=== PATIENT | male | born 1970 | race Caucasian/White ===

== ENCOUNTER → 2018-02-16 10:54 | Outpatient (CLI) | payer MEDICARE, SELFPAY ==
--- NOTE | 2018-02-16 10:54 | DT_ITS ---
This patient was seen during an EMR downtime February 15, 2018 - February 22, 2018. This patient may have a combination of paper and electronic documentation or all paper documentation. All documentation is viewable within the e-chart portion of [employer] for each patient visit.
[2018-02-22 17:46] LABS: Hemoglobin A1c 7.3 % (4.2-6.3)
[2018-02-22 17:47] LABS: ALB/GLOB Ratio 1.1 RATIO (0.9-2.4); AST(SGOT) 20 U/L (15-37); Alanine Aminotransfer ALT/SGPT 38 U/L (16-61); Albumin, Serum 3.9 g/dL (3.2-5.0); Alkaline Phosphatase 109 U/L (45-117); Anion Gap 6 (5-15); BUN 12 mg/dL (7-18); BUN/Creat Ratio 11.3 RATIO (10-20); Calcium,Total 9.8 mg/dL (8.5-10.1); Chloride 106 mmol/L (98-107); Cholesterol 208 mg/dL (200); Creatinine, Serum 1.06 mg/dL (0.70-1.30); EST Glomerular Filtration Rate 80 mL/min (>60); Est Glom Filt Rate - Afr Amer 97 mL/min (>60); Globulin 3.6 g/dL (2.2-4.2); Glucose 114 mg/dL (74-106); High Density Lipoprotein 31 mg/dL; Potassium 4.1 mmol/L (3.5-5.1); Protein, Total 7.5 g/dL (6.4-8.2); Sodium Level 141 mmol/L (136-145); Triglycerides 382 mg/dL; Very Low Density Lipoprotein 76 mg/dL (5-40)
[2018-02-22 17:48] LABS: Thyroid Stim Hormone (TSH) 1.16 uIU/mL (0.358-3.74)
== END ==
PROVIDERS: Family Provider Family Medicine; PCP Family Medicine; Visit Provider Family Medicine
DX: E03.9 Hypothyroidism, unspecified (principal); E11.36 Type 2 diabetes mellitus with diabetic cataract; E11.65 Type 2 diabetes mellitus with hyperglycemia
CPT/HCPCS: 80053; 80061; 83036; 84443

== ENCOUNTER → 2019-08-23 12:15 | Outpatient (CLI) | payer MEDICARE, SELFPAY ==
[2019-08-23 16:21] LABS: Hemoglobin A1c 9.8 % (4.2-6.3)
[2019-08-23 16:24] LABS: Cholesterol 235 mg/dL (200); High Density Lipoprotein 34 mg/dL; T4 Free Direct 0.98 ng/dL (0.76-1.46); Thyroid Stim Hormone (TSH) 0.96 uIU/mL (0.358-3.74); Triglycerides 299 mg/dL; Very Low Density Lipoprotein 60 mg/dL (5-40)
[2019-08-24 09:16] LABS: T3 Uptake 33 % (33-40)
== END ==
PROVIDERS: Family Provider Family Medicine; PCP Family Medicine; Referring Provider Family Medicine; Visit Provider Family Medicine
DX: E78.49 Other hyperlipidemia (principal); E03.9 Hypothyroidism, unspecified; E11.9 Type 2 diabetes mellitus without complications
CPT/HCPCS: 80061; 83036; 84436; 84439; 84443; 84479

== ENCOUNTER 2022-10-21 21:33 | Emergency (ER) | payer MEDICARE, SELFPAY ==
[2022-10-21 21:34] VITALS: BP 160/81; PULSE 108; RESP 16; TEMP 36.6; O2SAT 98; BMI 23.3
--- NOTE | 2022-10-21 22:05 | CM.ED ---
SW Note Referral Source: MD Daniel Referral Reason: resources MD Daniel informed SW patient was homeless and needing medication refills. SW to follow up regarding shelters. SW contacted [facility] as well as [facility] include 234 beds at the [facility] to inquire about availability. No beds at either location. [facility] not open until this weekend. SW met with patient and introduced herself and role as [facility] Workers Compensation Coordinator. SW inquired about patient's current living situation. Patient was laying in bed but in agreement to speak with SW. SW explained there were no beds available at the local detention then provided patient with phone numbers for shelters in [place] and [place]. Patient was receptive towards information but reported he didn't have a phone, ID or car. SW encouraged patient to contact friends or family to assist with a place to sleep for tonight. Patient then voiced other medical concerns. SW to inform MD, no other needs voiced by patient. MD Daniel informed resources were provided and patient has other medical concerns. to address. Plan: d/c out, homeless detention list provided. Carole Green [employer]ER, NABEEL
[2022-10-21 22:11] VITALS: O2SAT 98
--- NOTE | 2022-10-21 22:14 | EDS_ITS ---
HPI History of Present Illness Chief Complaint: Lower Extremity Injury Narrative Narrative: Patient with history of diabetes, neuropathy, bipolar disorder, PTSD, personality disorder, fibromyalgia presenting for medication refills. He notes some of his medications but does not know any of his doses. He reports has been out of this for a few days. He was recently released from [facility]. He states he was in [facility] because his made a false accusation of him. He states that she did this so that she can gain control of their 6 houses and become a millionaire. He is now homeless and has no money. He did not tell me what he did to go to [facility]. He is not suicidal or homicidal. He is not manic. He is clearheaded. He states he is really just here because the homeless senior living did not have a bed for him tonight. He states that they would have had a bed, he would have stayed there and gone to his appointment at [facility] tomorrow. PFSH PFSH Allergy/AdvReac Type Severity Reaction Status Date / Time lamotrigine [From Lamictal] Allergy Rash Verified 10/21/22 21:36 Social History Smoking Status: Never smoker ROS ROS ED Constitutional Constitutional ED: Denies chills, fever(s) or sweats Eyes Eyes: Denies blurry vision or change in vision ENT ENT ED: Denies ear pain or sore throat Cardiovascular Cardiovascular: Denies chest pain, palpitations or racing heartbeat Respiratory/Chest Respiratory/Chest: Denies cough, dyspnea or sputum Gastrointestinal Gastrointestinal: Denies abdominal pain, constipation, diarrhea, nausea or vomiting Genitourinary Genitourinary ED: Denies dysuria, hematuria or urinary frequency Musculoskeletal Musculoskeletal: Denies arthralgias, myalgias or neck pain Integumentary Denies abscess, Abrasions or rash Neurologic Neurologic: Denies headache(s), paresthesias or weakness Psychiatric Psychiatric: Denies anxiety, depression, suicidal ideation or suicidal thoughts Endocrine Endocrinology: Denies polydipsia or polyuria EXAM Physical Exam Const Vital Signs: 10/21/22 21:34 10/21/22 22:11 Temperature 97.8 F Temperature Source Temporal Pulse Rate 108 H Respiratory Rate 16 Blood Pressure 160/81 H Blood Pressure Mean 107 Pulse Ox 98 98 Oxygen Delivery Method Room Air Room Air General Appearance ED: Negative for pallor HEENT Reports normocephalic, head/scalp atraumatic and moist mucous membranes Eyes PERRL and EOMs intact bilaterally Neck no lymphadenopathy and supple Chest Wall inspection of chest normal and palpation of chest normal Resp normal respiratory effort and clear to auscultation bilaterally Auscultation: Negative for rales, rhonchi or wheezes Cardio regular rate and regular rhythm GI normal to inspection, nondistended, normoactive bowel sounds and non-distended Auscultation: normoactive bowel sounds Palpation: soft Narrative: Deferred Back/Spine no CVA tenderness General Back: Negative for CVA tenderness Cervical Spine: Negative for cervical spine tenderness Extremity normal to inspection General Extremety ED: Yes edema and tenderness General Extremity: edema Neuro oriented x3 and CN's II-XII intact bilaterally Sensorium / Orientation: alert Motor Exam: strength 5/5 throughout Psych mental status grossly normal Attitude: No agitated Skin no rashes or lesions noted and no wounds General Skin Exam: Negative for jaundice or pallor MDM MDM MDM Narrative Medical decision making narrative: Patient requesting medication refills but does not know any of the doses and is unsure of all of the medication she supposed to be taking. This makes it very difficult to give him any refills. Is been out of these for a few days. He has a appointment for [facility] tomorrow to get all of his medications refilled.hematuria he states that he came here tonight because the homeless senior living did not have a bed for him and is not supposed to be standing for long periods of time. I did have the social services coordinator going to give him some resources for other senior living sent to the warming room in the homeless senior living or full. In addition to this they do not accept anybody at 10:00 at night. He was given a list of other shelters in [place]. He is to follow-up for his prescriptions tomorrow. I do not believe he needs any blood work or imaging. Impression: 1. Peripheral neuropathy Discharge Plan Triage Chief Complaint: Lower Extremity Injury ED Provider: Julio Daniel Dx/Rx/DC Orders Clinical Impression: Homelessness, Neuropathy Instructions: ED Neuropathy, Peripheral Primary Care Provider: Cordell Bojorquez Referrals: Cordell Bojorquez MD [Primary Care Provider] - Disposition Disposition: Home, Self Care
[2022-10-21 22:39] VITALS: BP 135/78
== END 2022-10-21 22:40 | disposition home or self-care (01) ==
PROVIDERS: Emergency Provider Student in an Organized Health Care Education/Training Program; PCP Family Medicine; Visit Provider Student in an Organized Health Care Education/Training Program
DX: E11.40 Type 2 diabetes mellitus with diabetic neuropathy, unspecified (principal); Z59.02 Unsheltered homelessness
CPT/HCPCS: 99282

== ENCOUNTER 2023-10-29 14:06 | Emergency (ER) | payer MEDICARE, SELFPAY ==
[2023-10-29 14:08] VITALS: BP 147/78; PULSE 94; RESP 18; TEMP 36.3; O2SAT 98; BMI 21.5
[2023-10-29 14:34] LABS: Bedside Glucose 219 mg/dL (74-106)
[2023-10-29 15:03] LABS: Absolute Lymphocyte Count 2.57 X10^3/uL (0.83-4.51); Basophil# 0.08 X10^3/uL; Basophil% 0.7 % (0-1); Eosinophil# 0.15 X10^3/uL; Eosinophils% 1.4 % (0-5); Hemoglobin 16.9 g/dL (13.0-16.5); Lymphocyte # 2.57 X10^3/ul (0.83-4.51); Lymphocyte % 23.6 % (19-41); Mean Corp Hgb Conc 35.2 g/dL (32-36); Mean Corpuscular Hgb 32.2 pg (27.0-32.0); Mean Corpuscular Volume 91.4 fL (80-94); Mean Platelet Vol. 10.5 fl (6.2-12.0); Monocyte% 8.3 % (0-10); NRBC Flagged by Analyzer 0 % (0-5); Neutrophil # 7.01 X10^3/uL (2.7-7.7); Neutrophil % 64.5 % (47-70); Platelet Count 218 K/mm3 (150-450); RBC Distribution Width CV 12.3 % (11.6-14.6); RBC Distribution Width SD 41.7 fl (35.1-43.9); Red Blood Count 5.25 M/mm3 (4.6-6.2); White Blood Count 10.9 K/mm3 (4.4-11.0)
[2023-10-29 15:22] LABS: ALB/GLOB Ratio 1.1 RATIO (0.9-2.4); AST(SGOT) 9 U/L (15-37); Alanine Aminotransfer ALT/SGPT 19 U/L (16-61); Albumin, Serum 3.9 g/dL (3.2-5.0); Alkaline Phosphatase 129 U/L (45-117); Anion Gap 5 (5-15); BUN 9 mg/dL (7-18); Calcium,Total 9.7 mg/dL (8.5-10.1); Chloride 107 mmol/L (98-107); EST Glomerular Filtration Rate 95 mL/min (>60); Est Glom Filt Rate - Afr Amer 114 mL/min (>60); Estimated Creatinine Clearance 83.29 ml/min; Globulin 3.5 g/dL (2.2-4.2); Glucose 210 mg/dL (74-106); Potassium 3.3 mmol/L (3.5-5.1); Protein, Total 7.4 g/dL (6.4-8.2); Sodium Level 137 mmol/L (136-145)
--- NOTE | 2023-10-29 15:26 | EX.ED.DYSGE1 ---
HPI <Cathleen Khalil RN - Last Filed: 10/29/23 15:43> History of Present Illness Chief Complaint: General Illness Detail of Chief Complaint: Weakness, confusion, decreased p.o. intake, difficulty sleeping, nausea Informant: patient Onset/Context/Timing Onset: Days (3) Context: Gradual Onset Timing: Continuous Current Severity: Mild Maximum Severity: Moderate Worsened by: Nothing Relieved by: Nothing Narrative Narrative: Patient presents to the ED complaining of weakness, confusion, decreased p.o. intake x 3 days. Patient reports nausea, dry heaving, fever and chills beginning today. He also reports difficulty sleeping x 3 weeks. Patient states he cannot think properly. And has reported intermittent episodes of slurred speech. Patient reports generalized pain rated 6 out of 10 which is his baseline. Patient also reports intermittent chest pain and shortness of breath for several years. Reports chronic abdominal pain which is worse today. Patient reports diabetes in which he does not check his blood sugars. Also reports history of hypothyroidism, GERD, hypertension, hyperlipidemia, depression, anxiety, bipolar, and schizophrenia. Patient reports he was admitted to [facility] for 6 months in which they did not find anything wrong. Reports not taking mental health medications since 2020. Currently reports he only takes levothyroxine and omeprazole. Prior similar symptoms: No Recent Illness/Hospitalization: No PFSH <Cathleen Khalil RN - Last Filed: 10/29/23 15:43> PFSH Medical History (Updated 10/29/23 @ 15:[address] Cleve Easley MD) Anxiety Bipolar 1 disorder Chronic GERD Depression Diabetes Hyperlipidemia Hypertension Hypothyroidism Schizophrenia Allergy/AdvReac Type Severity Reaction Status Date / Time lamotrigine [From Lamictal] Allergy Rash Verified 10/29/23 14:09 Social History (Updated 10/29/23 @ 15:33 by Cathleen Khalil RN) Smoking Status: Current every day smoker Tobacco: How many years used: 2 smoking status start date: 09/14/18 quit status: not considering quitting alcohol intake: current details: 2 beers 1-2 times per week substance use type: marijuana ROS <Cathleen Khalil RN - Last Filed: 10/29/23 15:43> ROS ED Constitutional Constitutional ED: Reports chills and fever(s); Denies sweats Eyes Eyes: Denies blurry vision or change in vision ENT ENT ED: Denies ear pain, rhinorrhea or sore throat Cardiovascular Cardiovascular: Reports chest pain Respiratory/Chest Respiratory/Chest: Reports dyspnea Gastrointestinal Gastrointestinal: Reports abdominal pain and nausea; Denies diarrhea Genitourinary Genitourinary ED: Denies dysuria, hematuria or urinary frequency Musculoskeletal Musculoskeletal: Reports arthralgias and myalgias Integumentary Denies rash Neurologic Neurologic: Reports weakness; Denies headache(s) Psychiatric Psychiatric: Reports anxiety and depression Hematologic/Lymphatic Hematologic/Lymphatic: Reports systems reviewed and no addt'l complaints, except as documented EXAM <Cathleen Khalil RN - Last Filed: 10/29/23 15:43> Physical Exam Const Vital Signs: 10/29/23 14:08 10/29/23 15:06 Temperature 97.4 F L Temperature Source Temporal Pulse Rate 94 Respiratory Rate 18 Respiratory Effort Normal Respiratory Pattern Normal Blood Pressure 147/78 H Blood Pressure Mean 101 Pulse Ox 98 Oxygen Delivery Method Room Air Positive well nourished and well developed General Appearance ED: well developed and NAD HEENT Reports moist mucous membranes Eyes PERRL Chest Wall inspection of chest normal and palpation of chest normal Resp normal respiratory effort and clear to auscultation bilaterally Cardio regular rate, regular rhythm, S1 normal heart sound and S2 normal heart sound GI normal to inspection, nondistended, normoactive bowel sounds and non-tender Palpation: soft Extremity normal to inspection General Extremety ED: Negative for edema General Extremity: Negative for edema Neuro oriented x3 Sensorium / Orientation: alert Motor Exam: strength 5/5 throughout Psych mental status grossly normal Mood & Affect: anxious Skin no rashes or lesions noted <Dr. Cleve Easley MD - Last Filed: 10/29/23 15:44> Physical Exam Const Vital Signs: 10/29/23 14:08 10/29/23 15:06 Temperature 97.4 F L Temperature Source Temporal Pulse Rate 94 Respiratory Rate 18 Respiratory Effort Normal Respiratory Pattern Normal Blood Pressure 147/78 H Blood Pressure Mean 101 Pulse Ox 98 Oxygen Delivery Method Room Air MDM <Cathleen Khalil RN - Last Filed: 10/29/23 15:43> MDM MDM Narrative Medical decision making narrative: IV line initiated. Labwork obtained to evaluate for leukocytosis, anemia, and electrolyte derangement. History & Record Review Discussion w/independent historian: Patient Lab Data Attestation: I reviewed the patient's lab results. Labs: Laboratory Results - last 24 hr 10/29/23 10/29/23 14:17 14:50 WBC 10.9 RBC 5.25 Hgb 16.9 H Hct 48.0 MCV 91.4 MCH 32.2 H MCHC 35.2 RDW Std Deviation 41.7 RDW Coeff of Joe 12.3 Plt Count 218 MPV 10.5 Immature Gran % (Auto) 1.500 H Neut % (Auto) 64.5 Lymph % (Auto) 23.6 Baker % (Auto) 8.3 Eos % (Auto) 1.4 Baso % (Auto) 0.7 Absolute Neuts (auto) 7.0 Absolute Lymphs (auto) 2.57 Nucleated RBC % 0 Sodium 137 Potassium 3.3 L Chloride 107 Carbon Dioxide 25.0 Anion Gap 5 BUN 9 Creatinine 0.90 Estim Creat Clear Calc 83.29 Est GFR (MDRD) Af Amer 114 Est GFR (MDRD) Non-Af 95 BUN/Creatinine Ratio 10.0 Glucose 210 H Calcium 9.7 Total Bilirubin 1.20 H AST 9 L ALT 19 Alkaline Phosphatase 129 H Total Protein 7.4 Albumin 3.9 Globulin 3.5 Albumin/Globulin Ratio 1.1 POC Glucose 219 H Differential Diagnosis Chest pain/SOB: ACS Abdominal Pain: Bowel obstruction Management Discussion w/another healthcare provider: Other (Dr. Easley, ED provider) Treatment and Re-Evaluation :: Upon reevaluation, patient resting comfortably. No acute distress noted. CBC reveals normal white count of 10.9, hemoglobin 16.9 platelets 218. Chemistry reveals slightly decreased potassium 3.3, glucose 210, total bili of 1.2, and alk phos 129. No indications of DKA. Reviewed lab results with patient. Patient requesting glucometer to check glucose at home. Dr. Easley to write prescription for glucometer and supplies. Patient instructed to check glucose with meals and to keep a log. Patient also instructed to follow-up with Dr. Bojoqruez in 1 week. Instructed to return to ED for worsening symptoms. Patient agreeable to plan. <Dr. Cleve Easley MD - Last Filed: 10/29/23 15:44> MDM MDM Narrative Medical decision making narrative: IV line initiated. Labwork obtained to evaluate for leukocytosis, anemia, and electrolyte derangement. I have personally performed a face to face assessment of the patient and have reviewed the NAFISA Note. I performed a substantive portion of the visit including all aspects of the following. My maldonado findings include: History is 53-year-old male history of diabetes and underlying psychiatric illness. Not checking his blood sugars. Patient states he just has not been feeling well lately. Denies vomiting, diarrhea or fever. Denies headache or chest pain. Exam is [well-appearing 53-year-old male. Vital signs stable afebrile. Pulse ox 98% room air no hypoxia. He is in no distress. H EENT exam unremarkable. Mytrex membranes. Neck nontender no lymphadenopathy. Lungs clear to auscultation bilaterally. Heart regular rhythm rate about 90 no murmur. Chest wall and ribs nontender. Abdomen soft nontender. Back unremarkable. Moving all 4 extremities. Nontender no edema. Neurologically is awake and alert with no focal motor deficits.] Medical Decision Making [53-year-old male with diabetic and underlying psychiatric illnesses is not feeling well. Has a benign exam. Screening labs were obtained CBC was unremarkable. Chemistries are unremarkable except his glucose was 210. Liver enzymes are unremarkable. Patient be discharged home. He was hoping for glucometer.] Other additions or changes: [None] Lab Data Lab results narrative: CBC normal. Chemistries unremarkable and glucose of 210. Liver enzymes unremarkable. Labs: Laboratory Results - last 24 hr 10/29/23 10/29/23 14:17 14:50 WBC 10.9 RBC 5.25 Hgb 16.9 H Hct 48.0 MCV 91.4 MCH 32.2 H MCHC 35.2 RDW Std Deviation 41.7 RDW Coeff of Joe 12.3 Plt Count 218 MPV 10.5 Immature Gran % (Auto) 1.500 H Neut % (Auto) 64.5 Lymph % (Auto) 23.6 Baker % (Auto) 8.3 Eos % (Auto) 1.4 Baso % (Auto) 0.7 Absolute Neuts (auto) 7.0 Absolute Lymphs (auto) 2.57 Nucleated RBC % 0 Sodium 137 Potassium 3.3 L Chloride 107 Carbon Dioxide 25.0 Anion Gap 5 BUN 9 Creatinine 0.90 Estim Creat Clear Calc 83.29 Est GFR (MDRD) Af Amer 114 Est GFR (MDRD) Non-Af 95 BUN/Creatinine Ratio 10.0 Glucose 210 H Calcium 9.7 Total Bilirubin 1.20 H AST 9 L ALT 19 Alkaline Phosphatase 129 H Total Protein 7.4 Albumin 3.9 Globulin 3.5 Albumin/Globulin Ratio 1.1 POC Glucose 219 H Discharge Plan Triage Chief Complaint: General Illness ED Provider: Cleve Easley Dx/Rx/DC Orders Clinical Impression: Hyperglycemia due to diabetes mellitus, Malaise, Diabetes, Bipolar 1 disorder Instructions: High Blood Sugar (Hyperglycemia), Blood Sugar Check Steps Primary Care Provider: Cordell Bojorquez Referrals: Cordell Bojorquez MD [Primary Care Provider] - Activity Restrictions/Additional Instructions: Check blood sugar 3 times a day. Follow-up with Dr. Cross in 1 week. Return to ER for worsening symptoms. Disposition Disposition: Acute Care Hospital [facility]
--- OUTSIDE RECORDS SUMMARY | 2023-10-29 20:19 | XMS RPT_ITS | CCD ---
Author Name Unknown Address [address] [place] [address] [address] [place] [address] Organization [facility] Care Team Providers Care Home Health Care Physician Name Role Phone Unavailable Primary Care Provider UnavailSalazar Arnold MD Primary Care Provider REYNALDO MACIAS Attending Unavailable SALAZAR ACOSTA Primary Care Unavailable REYNALDO MACIAS Referring Unavailable SALAZAR ACOSTA Primary Care Unavailable REYNALDO MACIAS Attending Unavailable SALAZAR ACOSTA Primary Care Unavailable SALAZAR ACOSTA Primary Care Unavailable SALAZAR ACOSTA Primary Care Unavailable LIGIA FOOTE Referring Unavailable SALAZAR ACOSTA Primary Care Unavailable JOSETTE ARANGO Attending Unavailable LIGIA FOOTE Referring Unavailable Allergies Allergy Classification Reported Allergen(s) Allergy Type Date of Onset Reaction(s) Facility (9 sources) lamoTRIgine; Translations: [LAMOTRIGINE] Drug Allergy 08-05-2006 Rash [facility] (9 sources) Simvastatin; Translations: [SIMVASTATIN] Drug Allergy 08-23-2011 Intolerance [facility] Medications Current Medications Medication Drug Class(es) Dates Sig (Normalized) Sig (Original) ARIPiprazole 5 mg oral tablet (4 sources) Atypical Antipsychotic Start: 06-22-2023 End: 12-19-2023 take 1 tablet by mouth once daily ARIPiprazole (ABILIFY) 5 mg tablet Indications: Personality disorder (HCC) , Bipolar I disorder (HCC) Take 1 tablet by mouth once daily. 30 tablet 5 06/22/2023 12/19/2023 Active Completed/Discontinued Medications Medication Drug Class(es) Dates Sig (Normalized) Sig (Original) Blood-Glucose Meter ([id number] BLOOD GLUCOSE SYSTEM) monitoring kit (8 sources) Start: 09-08-2013 Blood-Glucose Meter ([id number] BLOOD GLUCOSE SYSTEM) monitoring kit 1 Each as needed. 1 Each 0 09/08/2013 Active Problems Active Problems Problem Classification Problem Date Documented Date Episodic/Chronic Adjustment disorders (8 sources) Adjustment disorder with mixed anxiety and depressed mood; Translations: [Adjustment disorder with mixed anxiety and depressed mood] Onset: 12-05-2009 12-05-2009 Chronic Anxiety disorders (8 sources) Posttraumatic stress disorder; Translations: [Post-traumatic stress disorder, unspecified] Onset: 12-05-2009 12-05-2009 Chronic Delirium, dementia, and amnestic and other cognitive disorders (8 sources) Traumatic encephalopathy; Translations: [Postconcussional syndrome] Onset: 12-06-2009 12-06-2009 Chronic Diabetes mellitus with complications (8 sources) Type II diabetes mellitus uncontrolled; Translations: [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] Onset: 07-13-2007 01-02-2016 Chronic Diabetes mellitus without complication (12 sources) Type 2 diabetes mellitus without complication; Translations: [Type 2 diabetes mellitus without complications] Onset: 03-08-2010 02-17-2018 Chronic Disorders of lipid metabolism (8 sources) Hyperlipidemia; Translations: [Hyperlipidemia, unspecified] Onset: 07-13-2007 01-02-2016 Chronic Immunizations and screening for infectious disease (3 sources) Patient encounter status; Translations: [Encounter for immunization] 06-22-2023 Episodic Mood disorders (11 sources) Bipolar I disorder; Translations: [Bipolar disorder, unspecified] Onset: 10-01-2005 08-08-2017 Chronic Other congenital anomalies (8 sources) Congenital anomaly of spleen; 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] Onset: 08-02-2007 08-02-2007 Chronic Other connective tissue disease (12 sources) Fibromyalgia; Translations: [Fibromyalgia] Onset: 07-15-2010 07-15-2010 Episodic Other injuries and conditions due to external causes (1 source) Unspecified injury of left wrist, hand and finger(s), initial encounter; Translations: [Injury of left hand, initial encounter] Onset: 09-15-2023 Episodic Other male genital disorders (8 sources) Secondary erectile dysfunction; Translations: [Male erectile dysfunction, unspecified] Onset: 05-10-2007 05-10-2007 Chronic Other non-traumatic joint disorders (1 source) Chronic pain of left upper limb; Translations: [Pain in left shoulder] Episodic Other skin disorders (1 source) Skin lesion; Translations: [Disorder of the skin and subcutaneous tissue, unspecified] 06-22-2023 Episodic Personality disorders (10 sources) Personality disorder; Translations: [Personality disorder, unspecified] Onset: 12-05-2009 02-17-2018 Chronic Spondylosis; intervertebral disc disorders; other back problems (2 sources) Neck pain; Translations: [Cervicalgia] Episodic Substance-related disorders (9 sources) Tobacco user; Translations: [Nicotine dependence, unspecified, uncomplicated] Onset: 11-06-2008 11-06-2008 Chronic Thyroid disorders (12 sources) Hypothyroidism; Translations: [Hypothyroidism, unspecified] Onset: 07-13-2007 12-17-2015 Chronic Past or Other Problems Problem Classification Problem Date Documented Da te Episodic/Chronic Genitourinary symptoms and ill-defined conditions (8 sources) Proteinuria; Translations: [Proteinuria, unspecified] Onset: 07-13-2009 07-13-2009 Episodic Other screening for suspected conditions (not mental disorders or infectious disease) (1 source) Encounter for screening for lipoid disorders; Translations: [Screening cholesterol level] Onset: 06-22-2023 Episodic Other skin disorders (1 source) Disorder of the skin and subcutaneous tissue, unspecified; Translations: [Skin lesion] Onset: 06-22-2023 Episodic Residual codes; unclassified (8 sources) Insomnia; Translations: [Insomnia, unspecified] Onset: 04-30-2007 04-30-2007 Episodic Results Test Name Value Interpretation Reference Range Facil ity Vital Signs Date Time Vital Sign Value Performing Clinician Cora burger 07-23-2023 09:40-0500 Body weight 59.42 kg Reynaldo Macias APRN.CNP Work Phone: [facility] 07-23-2023 09:40-0500 Diastolic blood pressure 80 mm[Hg] Reynaldo Macias APRN.CNP Work Phone: [facility] 07-23-2023 09:40-0500 Heart rate 97 /min Reynaldo Macias APRN.CNP Work Phone: [facility] 07-23-2023 09:40-0500 Respiratory rate 16 /min Reynaldo Macias APRN.CNP Work Phone: [facility] 07-23-2023 09:40-0500 SaO2% (BldA) [Mass fraction] 96 % Reynaldobarbi Krafthof INFORMATION SECURITY ASSOCIATE.TRANSITION OF CARE SPECIALIST Work Phone: [facility] 07-23-2023 09:40-0500 Systolic blood pressure 140 mm[Hg] Reynaldo Krafthof INFORMATION SECURITY ASSOCIATE.TRANSITION OF CARE SPECIALIST Work Phone: [facility] 06-22-2023 12:15-0400 Body weight 54.88 kg Reynaldobarbi Krafthof INFORMATION SECURITY ASSOCIATE.TRANSITION OF CARE SPECIALIST Work Phone: [facility] 06-22-2023 12:15-0400 Diastolic blood pressure 90 mm[Hg] Reynaldo Krafthof INFORMATION SECURITY ASSOCIATE.TRANSITION OF CARE SPECIALIST Work Phone: [facility] 06-22-2023 12:15-0400 Heart rate 94 /min Reynaldo Krafthof INFORMATION SECURITY ASSOCIATE.TRANSITION OF CARE SPECIALIST Work Phone: [facility] 06-22-2023 12:15-0400 Respiratory rate 16 /min Reynaldo Krafthof INFORMATION SECURITY ASSOCIATE.TRANSITION OF CARE SPECIALIST Work Phone: [facility] 06-22-2023 12:15-0400 SaO2% (BldA) [Mass fraction] 97 % Reynaldo Krafthof INFORMATION SECURITY ASSOCIATE.TRANSITION OF CARE SPECIALIST Work Phone: [facility] 06-22-2023 12:15-0400 Systolic blood pressure 140 mm[Hg] Reynaldo Krafthof INFORMATION SECURITY ASSOCIATE.TRANSITION OF CARE SPECIALIST Work Phone: [facility] Encounters Encounter Date Encounter Type Care Provider Facility Start: 09-21-2023 End: 09-21-2023 ambulatory [facility] Facility:[facility] Start: 09-15-2023 End: 09-15-2023 ambulatory [facility] Facility:[facility] Start: 07-23-2023 End: 07-23-2023 ambulatory [facility] Facility:[facility] Start: 07-23-2023 End: 07-23-2023 Patient encounter procedure Reynaldo Macias INFORMATION SECURITY ASSOCIATE.TRANSITION OF CARE SPECIALIST Work Phone: [facility] Procedures Date Procedure Procedure Detail Performing Clinician Start: 07-23-2023 INFLUENZA VACCINE, A GE 6 MO - 64 YR, QUADRIVALENT (AFLURIA, FLULAVAL, FLUZONE) Reynaldo Macias APRN.TRANSITION OF CARE SPECIALIST Work Phone: Start: 08-08-2017 Adult depression scr eening assessment Salazar Acosta MD Work Phone: Plan of Treatment Date Care Activity Detail Author Start: 06-22-2033 Urine microalbumin profile DTa P,Tdap,Td Vaccine (3 - Td or Tdap) [facility] Start: 07-23-2024 Annual PCP Team Sidewalk Repairer jimena Disease Visit Annual PCP Team Chronic Disease Visit [facility] Start: 06-22-2024 Annual PCP Team Sidewalk Repairer jimena Disease Visit Annual PCP Team Chronic Disease Visit [facility] Start: 06-22-2024 Covid-19 Vaccine (#1) Covid-19 Vacci ne (#1) [facility] Immunizations Immunization Date Immunization Notes Care Provider Fa cility 07-23-2023 influenza, injectabl e, quadrivalent, contains preservative Reynaldo Macias APRN.TRANSITION OF CARE SPECIALIST Work Phone: [facility] 06-22-2023 tetanus toxoid, redu brenton diphtheria toxoid, and acellular pertussis vaccine, adsorbed Reynaldo Macias INFORMATION SECURITY ASSOCIATE.[facility] Work Phone: [facility] 06-17-2010 influenza virus vacc ine, unspecified formulation Salazar Acosta MD Work Phone: [facility] Work Phone: 06-12-2009 influenza virus vacc ine, unspecified formulation Salazar Acosta MD Work Phone: [facility] 08-02-2007 pneumococcal polysaccharide vaccine, 23 valent Salazar Acosta MD Work Phone: [facility] Work Phone: 07-20-2007 influenza virus vacc ine, unspecified formulation Salazar Acosta MD Work Phone: [facility] 09-14-2002 diphtheria and tetan us toxoids, adsorbed for pediatric use Salazar Acosta MD Work Phone: [facility] Work Phone: Payers Date Payer Category Payer Medicare [id number] 2022 Unknown [id number] 2017 Medicare [employer] [place] MED[place] [id number] 2017-Present [phone] [address] [place] [address] [facility] [id number] 2017 Medicare [id number] Social History Date Type Detail Facility Start: 05-30-2021 End: 06-22-2023 Tobacco smoking status NHIS Smokes tobacco daily [facility] History of tobacco use Cigarette Smoker C [facility] History of tobacco use Cigar Smoker [facility] History of tobacco use Chews Tobacco [facility] Start: 05-30-2021 End: 07-23-2023 Alcohol intake Ex-drinker (finding) [facility] Start: 1970 Sex Assigned At Not on file C [facility] Start: 05-30-2021 End: 07-23-2023 Cigarettes smoked current (pack per day) - Reported 1 [facility] Work Phone: Start: 05-30-2021 End: 06-22-2023 Tobacco use and exposure User of smokeless tobacco [facility] Start: 06-22-2023 End: 07-23-2023 Tobacco use panel [facility] Work Phone: National Score (1-10 0), lower number is lower risk 68 [facility] Work Phone: Medical Equipment Procedure Code Equipment Code Equipment Origin al Text Equipment Identifier Dates Start: 08-29-2016 Clinical Notes 05-04-2012 to 09-21-2023 Patient InstructionsTanReynaldo sanchez APRN.CNP - 07/23/2023 10:00 AM ESTTelephone Encounter - Reynaldo Macias APRN.CNP - 07/13/2023 4:30 PM EDTTReynaldo thompson APRN.CNP - 06/22/2023 12:40 PM EDT Note Date & Type Note Facility 09-21-2023 Note HNO ID: [id number] Author: JOSETTE ARANGO PA-C Service: ? Author Type: Physician Telecom Manager Type: Progress Notes Filed: 09/21/2023 08:44 Note Text: Josette Arango PA-C Department of Orthopaedics [facility] [address] [place] [address] Dept: [phone] Dept September 21, 2023 CHIEF COMPLAINT: New and Fracture of the Left Hand Mr. Adrian Gunn is a 53 year old male who presents with pain in his left thumb after a fall down some stairs about a month ago. Patient thought that he had just sprained his wrist so he did not seek immediate medical care. Pain today is a 5 out of 10 aching at the base of the thumb/wrist. The patient was recently seen at the urgent care and placed in a brace, he reports that he remove the brace and that his dog chewed it up . Patient is right-hand dominant, he works construction, [employer]. He is a diabetic, admits that he has not been checking his sugars, going through her divorce, used to manage his diabetes for him. Denies any previous left thumb injuries. ASSESSMENT: S62.232A Closed displaced fracture of base of first metacarpal bone of left hand, unspecified fracture morphology, initial encounter (primary encounter diagnosis) M79.645 Pain of left thumb PLAN: Pressure is stable and already a month old, will get him into a removable brace to be worn like a cast for 2 weeks. Like to see him back at that time with repeat x-ray. Probably will transition him out of the brace then. Mr. Adrian Gunn was advised as to contrast therapies and/or to take analgesics/anti-inflammatories as needed and all contraindications were reviewed. OBJECTIVE: Mr. Adrian Gunn is a pleasant 53 year old in no apparent distress. Gen:There were no vitals taken for this visit. nl development, non obese, no deformities ENT: Normocephalic, normal hearing, moist mucosa CV: Pulses:Radial= 2+ and symmetric, capillary refill < 2 secs, no peripheral edema/varicosities Skin: no rash, bruising or lesions. Good turgor. Psych: cooperative and appropriate, alert and oriented x 3, good mood and affect. Musculoskeletal: Left thumb with mild but appropriate edema at the base of the first metacarpal. Diffuse tenderness on palpation at the first metacarpal joint. No ecchymosis noted. Patient is actively using the thumb in the office. Imaging: IMPRESSION: Comminuted fracture of the base of the left first metacarpal Pipe Cutter: FRANK Transcribe Date/Time: Sep 15 2023 1:14P Dictated by : DANIEL NICK MD This examination was interpreted and the report reviewed and electronically signed by: DANIEL NICK MD on Sep 15 2023 1:18PM EST Results-Findings * * *Final Report* * * DATE OF EXAM: Sep 15 2023 1:06PM WOX [id number] - XR DIGIT 3V FRONTAL/LAT/OBL LT / PROCEDURE REASON: Injury of left hand, initial encounter * * * * Physician Interpretation * * * * EXAMINATION: XR DIGIT 3V FRONTAL/LAT/OBL LT, XR WRIST 4V PA/LAT/OBL/SCAPH LT CLINICAL HISTORY: History of fall. Pain in the base of the left thumb. Technique: XR DIGIT 3V FRONTAL/LAT/OBL LT, XR WRIST 4V PA/LAT/OBL/SCAPH LT -- LEFT with 3 (accession [id number]), 4 (accession [id number]) views on 3 (accession [id number]), 4 (accession [id number]) images Comparison: None RESULT: Comminuted fracture of the base of the left first metacarpal. There is a small amount of callus formation. No dislocation. Joint spaces are maintained. Supporting Subjective Information Below: Past Surgical History: PAST SURGICAL HISTORY Procedure Laterality Date PAST SURGICAL HISTORY OF collapsed lung SPLENECTOMY TOTAL SEPARATE PROCEDURE Splenectomy REPAIR LIVER LACERATION Medications: Current Outpatient Medications Medication Sig levothyroxine (SYNTHROID) 100 mcg tablet Take 1 tablet by mouth daily before breakfast. DULoxetine (CYMBALTA) 40 mg cpDR Take 1 capsule by mouth once daily. (Patient not taking: Reported on 09/15/2023) metFORMIN ER (GLUCOPHAGE XR) 500 mg 24 hr tablet Take 1 tablet by mouth daily with breakfast. (Patient not taking: Reported on 09/15/2023) ARIPiprazole (ABILIFY) 5 mg tablet Take 1 tablet by mouth once daily. (Patient not taking: Reported on 09/21/2023) glimepiride (AMARYL) 2 mg tablet Take 1 tablet by mouth daily with breakfast. (Patient not taking: Reported on 09/15/2023) blood sugar diagnostic (ONETOUCH VERIO) test strip Test blood sugar(s) 1 times daily. Dx: Type 2 DM - Uncontrolled E11.65 Insulin: No Capsaicin (ARTHRITIS PAIN RELIEF) 0.1 % crea Apply 1 application to affected area three times daily as needed. (Patient not taking: Reported on 06/22/2023) Lancets lancets Test blood sugar(s) 4 times daily. Dx: 250.00. Insulin: Yes Lancets lancets Test blood sugar(s) 6 times daily. Dx: Type 2 DM - Uncontrolled E11.65 Insulin: No lithium 300 mg capsule Take 600 mg by mouth twice daily. (Patient not taking: Reported on 05/30/2021 ) (more content not included)... [facility] 09-21-2023 Note HNO ID: [id number] Author: ?, ?, ? Service: ? Author Type: ? Type: Progress Notes Filed: 09/21/2023 08:44 Note Text: AMB ROOMING INTAKE FLOWSHEET DATA Pain Pain Level: 5 Pain Location: Hand-Left Description: Dull, Aching Duration Amount of Time: 1 Duration Units: Months Frequency: Continuous Intervention/Comfort measure: Other: See comment (none) Patient here today for left 1st MC fracture. Patient states injury happened about 1 month ago when he fell down some stairs. States he was given a brace at urgent care, but his dog chewed it up. He is right hand dominant. Works construction. X-ray at [facility] on 09/15/2023. [facility] 09-15-2023 Note HNO ID: [id number] Author: Michelle Gaytan RT(R) Service: Radiology Author Type: Technologist Type: Progress Notes Filed: 09/15/2023 1:06 PM Note Text: Radiology Service Progress Note PATIENT NAME: Adrian Gunn DATE OF SERVICE: September 15, 2023 TIME: 12:57 PM PATIENT IDENTITY VERIFICATION COMPLETED USING TWO (2) IDENTIFIERS: Name and Date of confirmed by patient verbally. FALL SCREENING: Has the patient had 2 falls in the last year or 1 fall with injury or currently using an Ambulatory Assistive Device (Walker, Cane, Wheelchair, Crutches, etc.)? No PATIENT GENDER DATA: Male PATIENT RELEVANT IMPLANT DATA REVIEWED: Not Applicable RADIOLOGY DEPARTMENT: General X-ray: Exam(s) Completed: Upper Extremity X-Ray(s): Wrist, left and Fingers/Thumb, left PERIPHERAL IV DATA: Not applicable SIGNED BY: RT Elena(R) September 15, 2023 12:57 PM [facility] 09-15-2023 Note HNO ID: [id number] Author: Ligia Foote PA-C Service: ? Author Type: Physician Telecom Manager Type: Progress Notes Filed: 09/16/2023 12:40 PM Note Text: 09/15/2023 Patient presents with: Hand Pain: left x 1 month after fall SUBJECTIVE: This is a 53 year old that is here today for Complaint(s) of left hand injury x 1 month ago. States he fell and landed on an outstretched hand down a few steps. The day he fell it didn't feel any pain, the next day he had swelling and pain. He was never seen and evaluated. Swelling did resolve, but still having pain and unable to fully use his thumb. States he can touch his pinky with his thumb now. Pain wakes him at night. Denies numbness/tingling. PAST MEDICAL HISTORY Diagnosis Date Adjustment disorder with depressed mood Esophageal reflux Paroxysmal tachycardia, unspecified (HCC) Variants of migraine, not elsewhere classified, without mention of intractable migraine without mention of status migrainosus ALLERGIES Lamictal [Lamotrigine] and Simvastatin MEDICATIONS Current Outpatient Medications Medication Sig levothyroxine (SYNTHROID) 100 mcg tablet Take 1 tablet by mouth daily before breakfast. ARIPiprazole (ABILIFY) 5 mg tablet Take 1 tablet by mouth once daily. blood sugar diagnostic (VBOXTOUCH VERIO) test strip Test blood sugar(s) 1 times daily. Dx: Type 2 DM - Uncontrolled E11.65 Insulin: No Blood-Glucose Meter ([id number] BLOOD GLUCOSE SYSTEM) monitoring kit 1 Each as needed. DULoxetine (CYMBALTA) 40 mg cpDR Take 1 capsule by mouth once daily. (Patient not taking: Reported on 09/15/2023) metFORMIN ER (GLUCOPHAGE XR) 500 mg 24 hr tablet Take 1 tablet by mouth daily with breakfast. (Patient not taking: Reported on 09/15/2023) glimepiride (AMARYL) 2 mg tablet Take 1 tablet by mouth daily with breakfast. (Patient not taking: Reported on 09/15/2023) Capsaicin (ARTHRITIS PAIN RELIEF) 0.1 % crea Apply 1 application to affected area three times daily as needed. (Patient not taking: Reported on 06/22/2023) Lancets lancets Test blood sugar(s) 4 times daily. Dx: 250.00. Insulin: Yes Lancets lancets Test blood sugar(s) 6 times daily. Dx: Type 2 DM - Uncontrolled E11.65 Insulin: No lithium 300 mg capsule Take 600 mg by mouth twice daily. (Patient not taking: Reported on 05/30/2021 ) No current facility-administered medications for this visit. SOCIAL HISTORY Social History Tobacco Use Smoking status: Every Day Packs/day: 1.00 Years: 15.00 Additional pack years: 0.00 Total pack years: 15.00 Types: Cigarettes, Cigars Smokeless tobacco: Current Types: Chew Vaping Use Vaping Use: Never used Substance Use Topics Alcohol use: Not Currently Drug use: Yes Types: Marijuana Comment: medical license for marijuana REVIEW OF SYSTEMS See HPI OBJECTIVE: BP 148/82 Pulse 80 Temp 36.2 ?C (97.2 ?F) Resp 16 Wt 62.1 kg (137 lb) SpO2 99% BMI 22.11 kg/m? APPEARANCE Well appearing, alert, in no acute distress, well-hydrated, well nourished. EXTREMITIES Limited ROM with left thumb opposition and flexion, and adduction. + TTP base of first thumb, metacarpal. No skin discoloration, No edema, and Normal pulses bilaterally. Normal 2 point discrimination. + TTP over scaphoid. Normal ROM wrist. Normal ROM of IP joint of the first digit. ASSESSMENT/PLAN: 1. Injury of left hand, initial encounter - ICD9: 959.4, ICD10: S69.92XA (primary diagnosis) Non-displaced comminuted fracture of the left first metacarpal base. - XR WRIST INJURY 4V PA/LAT/OBL/SCAPH LEFT - XR DIGIT GENERAL 3V FRONTAL/LAT/OBL LEFT - CONSULT TO ORTHOPAEDICS Patient is post 4 weeks from initial injury. Placed in pre-florin thumb spica splint. Advise close f/u with ortho-scheduled this week Reviewed red flags and when to seek care sooner. The patient indicates understanding of these issues and agrees with the plan. 2. Closed nondisplaced fracture of base of first metacarpal bone of left hand, unspecified fracture morphology, initial encounter - ICD9: 815.01, ICD10: S62.235A As above - XR WRIST INJURY 4V PA/LAT/OBL/SCAPH LEFT - XR DIGIT GENERAL 3V FRONTAL/LAT/OBL LEFT - CONSULT TO ORTHOPAEDICS The patient indicates understanding of these issues and agrees with the plan. Reviewed red flags and when to seek care sooner. Ligia Foote PA-C [facility] 07-23-2023 Note HNO ID: [id number] Author: Reynaldo Macias APRN.TRANSITION OF CARE SPECIALIST Service: ? Author Type: Nurse Practitioner Type: Progress Notes Filed: 07/23/2023 3:14 PM Note Text: This is a 52 year old male who presents today with: Patient presents with: Follow Up: 1 month follow up HISTORY OF PRESENT ILLNESS: Adrian Gunn is a 52 year old male. Patient presents with: Follow Up: 1 month follow up 1 month follow up Would like eusebio spears RX. Refers he has difficulty walking long distances. Has neuropathy in bilateral feet. DM: Reports overall feeling well. Medication side effects: NA Home sugar checks: Not checking Hypoglycemic spells: No. Watching diet: No. Unexpected weight loss: No. Polyuria, polydipsia: No. Vision Changes: No. Foot lesions or numbness or pain: No. Taking metformin 500 mg twice daily, Amaryl 2 mg daily. Was out of medication for some time, ordered at last office visit. Not checking glucose. Feels better being back on medication. Fibro: Taking Cymbalta 40 mg daily Refers he has numbness and tingling in hands and feet. Thyroid: Taking Synthroid 100 mcg daily. Denies difficulty swallowing, palpitations, or cold/heat intolerances. Was out of medication for about 2-3 months. Restarted medication at last office visit. Repeat labs due 07/26/2023. Bipolar: Refers that he was falsely accused. Was in [facility] 7 months. Was taking Abilify. Refers he does have anxiety that keeps him up at night. Last month started back on Abilify 5 mg daily. Anxiety is well controlled at this time. Smokin PPD and cigars. Denies wanting to quit at this time. Colonoscopy: Denies wanting at this time. PAST MEDICAL HISTORY: PAST MEDICAL HISTORY Diagnosis Date Adjustment disorder with depressed mood Esophageal reflux Paroxysmal tachycardia, unspecified (HCC) Variants of migraine, not elsewhere classified, without mention of intractable migraine without mention of status migrainosus PAST SURGICAL HISTORY Procedure Laterality Date PAST SURGICAL HISTORY OF collapsed lung SPLENECTOMY TOTAL SEPARATE PROCEDURE Splenectomy REPAIR LIVER LACERATION ALLERGIES Lamictal [Lamotrigine] and Simvastatin MEDICATIONS Current Outpatient Medications Medication Sig cyclobenzaprine (FLEXERIL) 10 mg tablet Take 1 tablet by mouth three times a day as needed for muscle spasm for up to 10 days. DULoxetine (CYMBALTA) 40 mg cpDR Take 1 capsule by mouth once daily. metFORMIN ER (GLUCOPHAGE XR) 500 mg 24 hr tablet Take 1 tablet by mouth daily with breakfast. levothyroxine (SYNTHROID) 100 mcg tablet Take 1 tablet by mouth daily before breakfast. ARIPiprazole (ABILIFY) 5 mg tablet Take 1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 patient voices understanding. Reynaldo Macias APRN.DANDRE This note was partially generated using [employer] voice recognition system. Note was reviewed for accuracy. There may be minor misspellings or grammar miscues with [employer] voice recognition. documented in this encounter [facility] 06-22-2023 Instructions Reynaldo Macias APRN.CNP - 06/22/2023 12:35 PM EDT Labs pending Start synthroid, take on empty stomach. Start back on Abilify 5 mg daily and Cymbalta 20 mg daily. Work on eating a low carb diet. Decrease bread and pasta. Increase meat, veggies, and stay active. Stay well hydrated. Tdap booster given. May schedule with spine surgery for neck pain. Follow up in 1 month, may be telephone or virtual. Health Promotion: - Eat healthy -- go to [employer] to get started - Have a yearly physical - Get at least 30 minutes of physical activity daily - Get at least 7 to 8 hours of sleep each night - Reach and maintain a healthy weight - Get help to quit or don't start smoking - Limit alcohol use to one drink or less - Do not use illegal drugs or misuse prescription drugs - Wear a helmet when riding a bike and wear protective gear for sports - Wear a seatbelt in cars and not text and drive - Wear sunscreen documented in this encounter [facility] 01-30-2023 Note HNO ID: [id number] Author: Chelsea Powers LPN Service: ? Author Type: LICENSED NURSE Type: Progress Notes Filed: 01/30/2023 1:17 PM Note Text: 01/12/23POPULATION HEALTH NAVIGATION OUTREACH Action/FYI 01/12/23-Pt declined due on form of Transportation. EDNA-05/30/21 Patient Identified by Name and : YES, via phone Outreach Outcome/Action Spoke to patient / parent / legal guardian: Patient declined Did you use a PCP flex slot to schedule this appointment? N/A Reason for Outreach Care Gap or Scheduling/Wellness visits Payer: Payor: [facility] [place] MEDICARE / Plan: [employer] HMO / Product Type: HMO / Care Gap Reviewed:: N/A Reminder: Reminder note to check Health Maintenance for items below Health Maintenance items due: HEPATITIS B(1 of 3 - 3-dose series) Never done COVID-19 VACCINE(1) Never done HEPATITIS C SCREENING Never done HIV SCREENING Never done PNEUMOCOCCAL(2 - PCV) due on 08/02/2008 DILATED RETINAL EXAM due on 11/24/2010 DTAP,TDAP,TD(2 - Tdap) due on 09/14/2012 DIABETIC FOOT EXAM due on 12/17/2014 COLORECTAL CANCER SCREENING Never done URINE ALBUMIN:CREATININE RATIO due on 12/21/2018 HBA1C due on 03/25/2021 LDL CHOLESTEROL due on 09/25/2021 ANNUAL PCP TEAM CHRONIC DISEASE VISIT due on 05/30/2022 SHINGRIX VACCINE(1 of 2) Never done DEPRESSION ASSESSMENT Never done Navigation Signature: Chelsea Powers LPN January 30, 2023 1:15 PM [facility] 01-30-2023 Note Patient Outreach (FA MPWS) ADRIAN GUNN ([id number]) 1970 M Date Time Provider Department 01/30/23 CHELSEA POWERS During your visit today, we recorded the following information about you: Chelsea Powers LPN 01/30/2023 1:17 PM Signed 01/12/23POPULATION HEALTH NAVIGATION OUTREACH Action/FYI 01/12/23-Pt declined due on form of Transportation. EDNA-05/30/21 Patient Identified by Name and : YES, via phone Outreach Outcome/Action Spoke to patient / parent / legal guardian: Patient declined Did you use a PCP flex slot to schedule this appointment? N/A Reason for Outreach Care Gap or Scheduling/Wellness visits Payer: Payor: [facility] [place] MEDICARE / Plan: [employer] HMO / Product Type: HMO / Care Gap Reviewed:: N/A Reminder: Reminder note to check Health Maintenance for items below Health Maintenance items due: HEPATITIS B(1 of 3 - 3-dose series) Never done COVID-19 VACCINE(1) Never done HEPATITIS C SCREENING Never done HIV SCREENING Never done PNEUMOCOCCAL(2 - PCV) due on 08/02/2008 DILATED RETINAL EXAM due on 11/24/2010 DTAP,TDAP,TD(2 - Tdap) due on 09/14/2012 DIABETIC FOOT EXAM due on 12/17/2014 COLORECTAL CANCER SCREENING Never done URINE ALBUMIN:CREATININE RATIO due on 12/21/2018 HBA1C due on 03/25/2021 LDL CHOLESTEROL due on 09/25/2021 ANNUAL PCP TEAM CHRONIC DISEASE VISIT due on 05/30/2022 SHINGRIX VACCINE(1 of 2) Never done DEPRESSION ASSESSMENT Never done Navigation Signature: Chelsea Powers LPN January 30, 2023 1:15 PM Allergies As of Date: 01/30/2023 Noted Allergy Reaction LAMICTAL (LAMOTRIGINE) 08/05/2006 2 - Rash SIMVASTATIN 08/23/2011 5 - Intolerance Comments: Muscle pain Date Reviewed: 05/30/2021 Reviewed by: Reynaldo Macias APRN.TRANSITION OF CARE SPECIALIST - Fully Assessed Prescriptions as of 01/30/2023 - levothyroxine (SYNTHROID) 100 mcg tablet Take 1 tablet by mouth daily before breakfast. - metFORMIN (GLUCOPHAGE) 500 mg tablet Take 1 tablet by mouth twice daily with meals. Patient needs appointment for further refills - glimepiride (AMARYL) 2 mg tablet Take 1 tablet by mouth daily with breakfast. - blood sugar diagnostic (ONETOUCH VERIO) test strip Test blood sugar(s) 1 times daily. Dx: Type 2 DM - Uncontrolled E11.65 Insulin: No - Capsaicin (ARTHRITIS PAIN RELIEF) 0.1 % crea Apply 1 application to affected area three times daily as needed. - Lancets lancets Test blood sugar(s) 4 times daily. Dx: 250.00. Insulin: Yes - Lancets lancets Test blood sugar(s) 6 times daily. Dx: Type 2 DM - Uncontrolled E11.65 Insulin: No - lurasidone (LATUDA) 80 mg tablet Take 2 tablets by mouth once daily. - DULoxetine (CYMBALTA) 60 mg capsule Take 1 capsule by mouth once daily. - lithium 300 mg capsule Take 600 mg by mouth twice daily. - Blood-Glucose Meter (SZDI0SP BLOOD GLUCOSE SYSTEM) monitoring kit 1 Each as needed. 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] 08/02/2007 TOBACCO USE DISORDER [F17.200] 11/06/2008 Proteinuria [R80.9] 07/13/2009 Adjustment Disorder with Mixed Anxiety and Depr*12/05/2009 Depressive disorder, not elsewhere classified [*12/05/2009 05/19/2018 Personality disorder (HCC) [F60.9] 12/05/2009 Posttraumatic Stress Disorder [F43.10] 12/05/2009 Post-Traumatic Brain Syndrome [F07.81] 12/06/2009 Marital conflict [Z63.0] 02/08/2010 02/17/2018 Closed fracture of metatarsal bone(s) [S92.309A]03/08/2010 02/17/2018 Type 2 diabetes mellitus without complication, *03/08/2010 Other pain disorders related to psychological f*03/13/2010 02/17/2018 Other acquired deformity of toe [M20.5X9] 04/23/2010 02/17/2018 Fibromyalgia [M79.7] 07/15/2010 Brachial neuritis or radiculitis NOS [M54.12] 05/04/2012 02/17/2018 Encounter Status:Closed by CHELSEA POWERS on 01/30/23 [facility] 01-01-2023 Miscellaneous Notes Pt called again regarding letter he is needing in order to get a new SSI card. Can be mailed to home address on file. Office received records release from [facility] for Medical Records release of all Medical Records. Ok per Dr. Acosta to send. Information needed by 01/02/23. Routed to Med Recs. Keira Khan Ma Dr. Acosta was called and said that pt was incarcerated and was going to be for a long time. At that time it was decided pt was removed from PCP panel. Do you still want to see pt? Keira Khan Ma PCP was removed by PCP staff on 12/10/21. PCP was updated by PSR today. Pt has not been seen since 05/31/21, no upcoming appt. Please advise. Boubacar Weaver LPN Patient called to requesting letter from PCP with [facility] letter head. The letter needs to state that he is a current patient of Dr. Acosta and to include his social security number. This is necessary in order to receive a new social security number. Please mail the letter to the patient's address on file. Patient demographics have been reviewed and updated. documented in this encounter [facility] 11-19-2022 Note HNO ID: [id number] Author: Kayla Westfall [facility] Service: ? Author Type: ? Type: Progress Notes Filed: 11/19/2022 5:02 PM Note Text: POPULATION HEALTH NAVIGATION OUTREACH Action/FYI Patient due for PCP Confirmation, Colonoscopy, PHILLY, HGBA1C, Urine Albumin, Flu Vaccine Left message and sent Kaskadohart. Unable to pend orders due to patient not having a PCP listed. Patient Identified by Name and : NO Outreach Outcome/Action Unable to reach patient: Left message MyChart message sent Did you use a PCP flex slot to schedule this appointment? N/A Reason for Outreach Care Gap or Scheduling/Wellness visits Payer: Payor: [employer] / Plan: [place] MEDICARE / Product Type: HMO / Care Gap Reviewed:: Colorectal Cancer Screening Diabetic Eye Exam HBA1C Nephropathy (Albumin/Creatinine) Urine Flu Vaccine Reminder: Reminder note to check Health Maintenance for items below Health Maintenance items due: HEPATITIS B(1 of 3 - 3-dose series) Never done COVID-19 VACCINE(1) Never done HEPATITIS C SCREENING Never done HIV SCREENING Never done PNEUMOCOCCAL(2 - PCV) due on 08/02/2008 DILATED RETINAL EXAM due on 11/24/2010 DTAP,TDAP,TD(2 - Tdap) due on 09/14/2012 DIABETIC FOOT EXAM due on 12/17/2014 COLORECTAL CANCER SCREENING Never done URINE ALBUMIN:CREATININE RATIO due on 12/21/2018 HBA1C due on 03/25/2021 LDL CHOLESTEROL due on 09/25/2021 INFLUENZA(1) due on 05/15/2022 ANNUAL PCP TEAM CHRONIC DISEASE VISIT due on 05/30/2022 SHINGRIX VACCINE(1 of 2) Never done DEPRESSION ASSESSMENT Never done Navigation Signature: Kayla Hernandez November 19, 2022 4:50 PM [facility] 11-19-2022 History of Presen t illness Narrative POPULATION HEALTH NAVIGATION OUTREACH Action/FYI Patient due for PCP Confirmation, Colonoscopy, PHILLY, HGBA1C, Urine Albumin, Flu Vaccine Left message and sent Kaskadohart. Unable to pend orders due to patient not having a PCP listed. Patient Identified by Name and : NO Outreach Outcome/Action Unable to reach patient: Left message MyChart message sent Did you use a PCP flex slot to schedule this appointment? N/A Reason for Outreach Care Gap or Scheduling/Wellness visits Payer: Payor: [employer]VANTAGE / Plan: [place] / Product Type: HMO / Care Gap Reviewed:: Colorectal Cancer Screening Diabetic Eye Exam HBA1C Nephropathy (Albumin/Creatinine) Urine Flu Vaccine Reminder: Reminder note to check Health Maintenance for items below Health Maintenance items due: HEPATITIS B(1 of 3 - 3-dose series) Never done COVID-19 VACCINE(1) Never done HEPATITIS C SCREENING Never done HIV SCREENING Never done PNEUMOCOCCAL(2 - PCV) due on 08/02/2008 DILATED RETINAL EXAM due on 11/24/2010 DTAP,TDAP,TD(2 - Tdap) due on 09/14/2012 DIABETIC FOOT EXAM due on 12/17/2014 COLORECTAL CANCER SCREENING Never done URINE ALBUMIN:CREATININE RATIO due on 12/21/2018 HBA1C due on 03/25/2021 LDL CHOLESTEROL due on 09/25/2021 INFLUENZA(1) due on 05/15/2022 ANNUAL PCP TEAM CHRONIC DISEASE VISIT due on 05/30/2022 SHINGRIX VACCINE(1 of 2) Never done DEPRESSION ASSESSMENT Never done Navigation Signature: Kayla Westfall Pss November 19, 2022 4:50 PM documented in this encounter [facility] 11-19-2022 Note Patient Outreach (NE TNAV) ADRIAN GUNN ([id number]) 1970 M Date Time Provider Department 11/19/22 KAYLA WESTFALL ([facility]) TAWANNANAV During your visit today, we recorded the following information about you: Kayla Westfall [facility] 11/19/2022 5:02 PM Signed POPULATION HEALTH NAVIGATION OUTREACH Action/ Patient due for PCP Confirmation, Colonoscopy, PHILLY, HGBA1C, Urine Albumin, Flu Vaccine Left message and sent Kaskadohart. Unable to pend orders due to patient not having a PCP listed. Patient Identified by Name and : NO Outreach Outcome/Action Unable to reach patient: Left message Kaskadohart message sent Did you use a PCP flex slot to schedule this appointment? N/A Reason for Outreach Care Gap or Scheduling/Wellness visits Payer: [facility]or[facility] / Plan: [place] MED[place]ARE / Product Type: HMO / Care Gap Reviewed:: Colorectal Cancer Screening Diabetic Eye Exam HBA1C Nephropathy (Albumin/Creatinine) Urine Flu Vaccine Reminder: Reminder note to check Health Maintenance for items below Health Maintenance items due: HEPATITIS B(1 of 3 - 3-dose series) Never done COVID-19 VACCINE(1) Never done HEPATITIS C SCREENING Never done HIV SCREENING Never done PNEUMOCOCCAL(2 - PCV) due on 08/02/2008 DILATED RETINAL EXAM due on 11/24/2010 DTAP,TDAP,TD(2 - Tdap) due on 09/14/2012 DIABETIC FOOT EXAM due on 12/17/2014 COLORECTAL CANCER SCREENING Never done URINE ALBUMIN:CREATININE RATIO due on 12/21/2018 HBA1C due on 03/25/2021 LDL CHOLESTEROL due on 09/25/2021 INFLUENZA(1) due on 05/15/2022 ANNUAL PCP TEAM CHRONIC DISEASE VISIT due on 05/30/2022 SHINGRIX VACCINE(1 of 2) Never done DEPRESSION ASSESSMENT Never done Navigation Signature: Kayla Westfall Pss November 19, 2022 4:50 PM Allergies As of Date: 11/19/2022 Noted Allergy Reaction LAMICTAL (LAMOTRIGINE) 08/05/2006 2 - Rash SIMVASTATIN 08/23/2011 5 - Intolerance Comments: Muscle pain Date Reviewed: 05/30/2021 Reviewed by: Reynaldo Macias APRN.TRANSITION OF CARE SPECIALIST - Fully Assessed Reason for Visit: Population Health Navigation Outreach [3910] Cmt: [employer] Care Gaps Prescriptions as of 11/19/2022 - levothyroxine (SYNTHROID) 100 mcg tablet Take 1 tablet by mouth daily before breakfast. - metFORMIN (GLUCOPHAGE) 500 mg tablet Take 1 tablet by mouth twice daily with meals. Patient needs appointment for further refills - glimepiride (AMARYL) 2 mg tablet Take 1 tablet by mouth daily with breakfast. - blood sugar diagnostic ([facility] VERIO) test strip Test blood sugar(s) 1 times daily. Dx: Type 2 DM - Uncontrolled E11.65 Insulin: No - Capsaicin (ARTHRITIS PAIN RELIEF) 0.1 % crea Apply 1 application to affected area three times daily as needed. - Lancets lancets Test blood sugar(s) 4 times daily. Dx: 250.00. Insulin: Yes - Lancets lancets Test blood sugar(s) 6 times daily. Dx: Type 2 DM - Uncontrolled E11.65 Insulin: No - lurasidone (LATUDA) 80 mg tablet Take 2 tablets by mouth once daily. - DULoxetine (CYMBALTA) 60 mg capsule Take 1 capsule by mouth once daily. - lithium 300 mg capsule Take 600 mg by mouth twice daily. - Blood-Glucose Meter ([id number] BLOOD GLUCOSE SYSTEM) monitoring kit 1 Each as needed. 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] 08/02/2007 TOBACCO USE DISORDER [F17.200] 11/06/2008 Proteinuria [R80.9] 07/13/2009 Adjustment Disorder with Mixed Anxiety and Depr*12/05/2009 Depressive disorder, not elsewhere classified [*12/05/2009 05/19/2018 Personality disorder (HCC) [F60.9] 12/05/2009 Posttraumatic Stress Disorder [F43.10] 12/05/2009 Post-Traumatic Brain Syndrome [F07.81] 12/06/2009 Marital conflict [Z63.0] 02/08/2010 02/17/2018 Closed fracture of metatarsal bone(s) [S92.309A]03/08/2010 02/17/2018 Type 2 diabetes mellitus without complication, *03/08/2010 Other pain disorders related to psychological f*03/13/2010 02/17/2018 Other acquired deformity of toe [M20.5X9] 04/23/2010 02/17/2018 Fibromyalgia [M79.7] 07/15/2010 Brachial neuritis or radiculitis NOS [M54.12] 05/04/2012 02/17/2018 Encounter Status:Closed by KAYLA QUISPE on 11/19/22 [facility] 07-28-2022 History of Presen t illness Narrative Pt chart reviewed as part of population health initiative focused on statin use in patients with diabetes (DM) or cardiovascular disease (CVD). Adrian Gunn is identified through data from [employer] (insurer) as a potential candidate for statin therapy with no prescriptions claims processed for a statin medication in this calendar year. Chart Review The following case components were reviewed for current or historic statin use: Confirmed diabetes and or CVD: yes Current/Active med list includes a statin: no IF NO, reason identified (contraindication, intolerance, exclusion, etc.): Unknown, hx of intolerance to simvastatin, hx of atorvastatin use. Not a current [facility] pt due to halfway incarceration per epic 12/11/21 encounter. ALLERGIES Allergen Reactions Lamictal [Lamotrigi* Rash Simvastatin Intolerance Muscle pain PAST MEDICAL HISTORY Diagnosis Date Adjustment disorder with depressed mood Esophageal reflux Paroxysmal tachycardia, unspecified (HCC) Variants of migraine, not elsewhere classified, without mention of intractable migraine without mention of status migrainosus Cholesterol, Total (mg/dL) Date Value 09/25/2020 225 HDL Cholesterol (mg/dL) Date Value 09/25/2020 36 LDL Cholesterol (mg/dL) Date Value 09/25/2020 Unable to calculate due to increased Triglycerides. See LDL-Chol, Direct. Triglyceride (mg/dL) Date Value 09/25/2020 410 Outcome of review: Potential exclusion Amol Chow Associated attestation - Baljit Cordova, [facility] - 07/28/2022 11:55 AM EST The patient's case was discussed with the student who saw the patient with me. Post elements of history confirmed during visit. Agree with findings and plan as outlined by the student. My additions to the note are underlined. Baljit Cordova, PharmD, MEd, BCPS, CDCES documented in this encounter [facility] 12-11-2021 Miscellaneous Notes PCP removed. Aquilino Mack APRN.CNP Patient has been identified by name and date of : Yes Pharmacy phones for refill(s): Pending Prescriptions Disp Refills MELOXICAM 15 MG TABLET 30 tablet 3 Sig: Take 1 tablet by mouth once daily. Take with food. DAYA: No Date of last office visit with pcp: 05/31/2021 Future appt: None. Placed call to patient to schedule and spoke with who reports patient is incarcerated and will be for a long time. No refill needed at this time. Order not pended. Last 2 Encounter Wt Readings: Date: Wt: 05/30/2021 61.7 kg (136 lb) 11/02/2019 63.5 kg (140 lb) Previous labs/tests for medication: Blood Pressure: BUN (mg/dL) Date Value 09/25/2020 16 Sodium (mmol/L) Date Value 09/25/2020 139 Last 1 Encounter BP Readings: Date: BP: 05/30/2021 170/76 Liver Function: ALT (U/L) Date Value 09/25/2020 11 AST (U/L) Date Value 09/25/2020 10 Please advise. Thank you. Arlen Genao RN documented in this encounter [facility] documented as of this encounter (statuses as of 12/11/2021) [facility] History of Past illness Narrative* Problem Noted Date Resolved Date Brachial neuritis or radiculitis NOS 05/04/2012 02/17/2018 Other acquired deformity of toe 04/23/2010 02/17/2018 Other pain disorders related to psychological fa ctors 03/13/2010 02/17/2018 Closed fracture of metatarsal bone(s) 03/08/2010 02/17/2018 Marital conflict 02/08/2010 02/17/2018 Depressive disorder, not elsewhere classified 05/19/2018 Tachycardia, unspecified 08/02/2007 018 Chest pain, unspecified 01/29/2007 02/18/20 18 Nonallopathic lesion of pelv ic region, not elsewhere classified 10/01/2005 02/17/2018 Backache, unspecified 10/01/2005 02/17/2018 documented as of this encounter (statuses as of 07/28/2022) [facility] History of Past illness Narrative* Problem Noted Date Resolved Date Brachial neuritis or radiculitis NOS 05/04/2012 02/17/2018 Other acquired deformity of toe 04/23/2010 02/17/2018 Other pain disorders related to psychological fa ctors 03/13/2010 02/17/2018 Closed fracture of metatarsal bone(s) 03/08/2010 02/17/2018 Marital conflict 02/08/2010 02/17/2018 Depressive disorder, not elsewhere classified 05/19/2018 Tachycardia, unspecified 08/02/2007 018 Chest pain, unspecified 01/29/2007 02/18/20 18 Nonallopathic lesion of pelv ic region, not elsewhere classified 10/01/2005 02/17/2018 Backache, unspecified 10/01/2005 02/17/2018 documented as of this encounter (statuses as of 11/20/2022) [facility] History of Past illness Narrative* Problem Noted Date Resolved Date Brachial neuritis or radiculitis NOS 05/04/2012 02/17/2018 Other acquired deformity of toe 04/23/2010 02/17/2018 Other pain disorders related to psychological fa ctors 03/13/2010 02/17/2018 Closed fracture of metatarsal bone(s) 03/08/2010 02/17/2018 Marital conflict 02/08/2010 02/17/2018 Depressive disorder, not elsewhere classified 05/19/2018 Tachycardia, unspecified 08/02/2007 018 Chest pain, unspecified 01/29/2007 02/18/20 18 Nonallopathic lesion of pelv ic region, not elsewhere classified 10/01/2005 02/17/2018 Backache, unspecified 10/01/2005 02/17/2018 documented as of this encounter (statuses as of 02/27/2023) [facility] History of Past illness Narrative* Problem Noted Date Diagnosed Date Resolved Date Brachial neuritis or radiculitis NOS 05/04/2012 02/17/2018 Other acquired deformity of toe 04/23/2010 02/17/2018 Other pain disorders related to psychological factors 03/13/2010 02/17/2018 Closed fracture of metatarsal bone(s) 03/08/2010 02/17/2018 Marital conflict 02/08/2010 02/17/2018 Depressive disorder, not elsewhere classified 12/06/1905/19/2018 Tachycardia, unspecified 08/02/200702/2018 Chest pain, unspecified 01/29/200702/2018 Nonallopathic lesion of pelv ic region, not elsewhere classified 10/01/2005 02/17/2018 Backache, unspecified 10/01/20052017 documented as of this encounter (statuses as of 06/23/2023) [facility] History of Past illness Narrative* Problem Noted Date Diagnosed Date Resolved Date Brachial neuritis or radiculitis NOS 05/04/2012 02/17/2018 Other acquired deformity of toe 04/23/2010 02/17/2018 Other pain disorders related to psychological factors 03/13/2010 02/17/2018 Closed fracture of metatarsal bone(s) 03/08/2010 02/17/2018 Marital conflict 02/08/2010 02/17/2018 Depressive disorder, not elsewhere classified 12/06/1905/19/2018 Tachycardia, unspecified 08/02/200702/2018 Chest pain, unspecified 01/29/200702/2018 Nonallopathic lesion of pelv ic region, not elsewhere classified 10/01/2005 02/17/2018 Backache, unspecified 10/01/20052017 documented as of this encounter (statuses as of 06/26/2023) [facility] of Past illness Narrative* Problem Noted Date Diagnosed Date Resolved Date Brachial neuritis or radiculitis NOS 05/04/2012 02/17/2018 Other acquired deformity of toe 04/23/2010 02/17/2018 Other pain disorders related to psychological factors 03/13/2010 02/17/2018 Closed fracture of metatarsal bone(s) 03/08/2010 02/17/2018 Marital conflict 02/08/2010 02/17/2018 Depressive disorder, not elsewhere classified 12/06/1905/19/2018 Tachycardia, unspecified 08/02/200702/2018 Chest pain, unspecified 01/29/200702/2018 Nonallopathic lesion of pelv ic region, not elsewhere classified 10/01/2005 02/17/2018 Backache, unspecified 10/01/20052017 documented as of this encounter (statuses as of 07/14/2023) [facility]08-[facility]-2012 History of Past illness Narrative* Problem Noted Date Diagnosed Date Resolved Date Brachial neuritis or radiculitis NOS 05/04/2012 02/17/2018 Other acquired deformity of toe 04/23/2010 02/17/2018 Other pain disorders related to psychological factors 03/13/2010 02/17/2018 Closed fracture of metatarsal bone(s) 03/08/2010 02/17/2018 Marital conflict 02/08/2010 02/17/2018 Depressive disorder, not elsewhere classified 12/06/1905/19/2018 Tachycardia, unspecified 08/02/200702/2018 Chest pain, unspecified 01/29/200702/2018 Nonallopathic lesion of pelv ic region, not elsewhere classified 10/01/2005 02/17/2018 Backache, unspecified 10/01/20052017 documented as of this encounter (statuses as of 07/24/2023) [facility] Diagnosis Neck pain Cervicalgia Chronic left shoulder pain Pain in joint, shoulder region documented in this encounter [facility]* Diagnosis Type 2 diabetes mellitus without complication, without long-term current use of insulin ([facility])- Primary Hypothyroidism, unspecified type Bipolar I disorder (HCC) Bipolar I disorder, most recent episode (or current) unspecified Personality disorder (HCC) Unspecified personality disorder Fibromyalgia Mylagia and myositis, unspecified Skin lesion Unspecified disorder of skin and subcutaneous tissue Neck pain Cervicalgia Encounter for immunization Need for other specified prophylactic vaccination against single bacterial disease Screening cholesterol level Screening for lipoid disorders documented in this encounter [facility]* Diagnosis Type 2 diabetes mellitus without complication, without long-term current use of insulin (HCC)- Primary Hypothyroidism, unspecified type Fibromyalgia Mylagia and myositis, unspecified documented in this encounter [facility]* Diagnosis Fibromyalgia- Primary Mylagia and myositis, unspecified documented in this encounter [facility]* Diagnosis Type 2 diabetes mellitus without complication, without long-term current use of insulin (HCC)- Primary Fibromyalgia Mylagia and myositis, unspecified Hypothyroidism, unspecified type Bipolar I disorder (HCC) Bipolar I disorder, most recent episode (or current) unspecified Tobacco use disorder Encounter for immunization Need for other specified prophylactic vaccination against single bacterial disease documented in this encounter [facility] Summary Purpose Family History No Family History Records FoundNo Family History Records Found Advance Directives No Advanced Directives Records FoundNo Advanced Directives Records Found Reason for Referral Specialty Diagnoses / Procedures Referred By Contac t Referred To Contact Diagnoses Neck pain Procedures CONSULT TO SPINE SURGERY OFFICE/OUTPATIENT NEW HIGH MDM 60-74 MINUTES Reynaldo Macias APRN.TRANSITION OF CARE SPECIALIST [address] [place] [address] Referral ID Status Reason Start Date Expiration Date Visits Requested Visits Authorized [id number] Authorized PCP Requested Referral 06/22/2023 06/21/2024 1 1 Specialty Diagnoses / Procedures Referred By Contac t Referred To Contact Diagnoses Fibromyalgia Reynaldo Macias APRN.TRANSITION OF CARE SPECIALIST [address] [place] [address] Referral ID Status Reason Start Date Expiration Date V isits Requested Visits Authorized [id number] Pending Review 1 1 Additional Source Comments (unrecognized sect ion and content) No Status Records FoundNo Status Records Found INFORMATION SOURCE (unrecogn ized section and content) DATE CREATED AUTHOR AUTHOR'S ORGANIZ ATION 10/24/2023 [facility] Source Comments (unrecognize d section and content) In the event this informatio n is protected by the Federal Confidentiality of Alcohol and Drug Abuse Patient Records regulations: The Federal rules restrict any use of the information to criminally investigate or prosecute any alcohol or drug abuse patient.[facility] the event this information is protected by the Federal Confidentiality of Alcohol and Drug Abuse Patient Records regulations: The Federal rules restrict any use of the information to criminally investigate or prosecute any alcohol or drug abuse patient.[facility] the event this information is protected by the Federal Confidentiality of Alcohol and Drug Abuse Patient Records regulations: The Federal rules restrict any use of the information to criminally investigate or prosecute any alcohol or drug abuse patient.[facility] the event this information is protected by the Federal Confidentiality of Alcohol and Drug Abuse Patient Records regulations: The Federal rules restrict any use of the information to criminally investigate or prosecute any alcohol or drug abuse patient.[facility] the event this information is protected by the Federal Confidentiality of Alcohol and Drug Abuse Patient Records regulations: The Federal rules restrict any use of the information to criminally investigate or prosecute any alcohol or drug abuse patient.[facility] the event this information is protected by the Federal Confidentiality of Alcohol and Drug Abuse Patient Records regulations: The Federal rules restrict any use of the information to criminally investigate or prosecute any alcohol or drug abuse patient.[facility] the event this information is protected by the Federal Confidentiality of Alcohol and Drug Abuse Patient Records regulations: The Federal rules restrict any use of the information to criminally investigate or prosecute any alcohol or drug abuse patient.[facility] the event this information is protected by the Federal Confidentiality of Alcohol and Drug Abuse Patient Records regulations: The Federal rules restrict any use of the information to criminally investigate or prosecute any alcohol or drug abuse patient.[facility] Reason for Visit (unrecogniz ed section and content) Reason Onset Date Comments Allied Health Visit 07/28/2022 Statin Use R eview Reason Onset Date Comments Population Health Navigation Outreach 11/19/2022 [employer] Care Gaps Reason Comments Letter Forms Reason Comments Follow Up med check for thyroi d and anxiety Reason Comments Results Orders Reason Comments Patient Question Reason Comments Follow Up 1 month follow up Care Teams (unrecognized sec tion and content) Home Health Care Physician Relationship Specialty Start Date End Date Salazar Acosta MD [address] [place] [address] PCP - General Family Medicine 4/11/23 Home Health Care Physician Relationship Specialty Start Date End Date Salazar Acosta MD [address] [place], [place] [address] PCP - General [facility] 12/23/22 Home Health Care Physician Relationship Specialty Start Date End Date Salazar Acosta MD [address] [place], [place] [id number] PCP - General Family [facility] 12/23/22 FOR RECORDS PERTAINING TO PATIENTS WHO ARE OR HAVE BEEN ENROLLED IN A CHEMICAL DEPENDENCY/SUBSTANCEABUSE PROGRAM, SOME INFORMATION MAY BE OMITTED. This clinical summary was aggregated from multiple sources. Caution should be exercised in using it in the provision of clinical care. This summary normalizes information from multiple sources, and as a consequence, information in this document may materially change the coding, format and clinical context of patient data. In addition, data may be omitted in some cases. CLINICAL DECISIONS SHOULD BE BASED ON THE PRIMARY CLINICAL RECORDS. [facility]. provides no warranty or guarantee of the accuracy or completeness of information in this document.
== END 2023-10-29 15:56 | disposition home or self-care (01) ==
PROVIDERS: Emergency Provider Emergency Medicine; PCP Family Medicine; Visit Provider Emergency Medicine
DX: E11.65 Type 2 diabetes mellitus with hyperglycemia (principal); F31.9 Bipolar disorder, unspecified; R53.81 Other malaise; F17.200 Nicotine dependence, unspecified, uncomplicated; F12.90 Cannabis use, unspecified, uncomplicated
CPT/HCPCS: 80053; 82962; 85025; 99283

== ENCOUNTER 2024-01-28 12:24 | Observation (INO) | payer MEDICARE, SELFPAY ==
[2024-01-28 12:26] VITALS: BP 141/76; PULSE 87; RESP 18; TEMP 36.6; O2SAT 99; BMI 19.9
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
[2024-01-28] MEDS: diazePAM 5 MG Tablet PO (12:51)
[2024-01-28] MEDS: Ketorolac 15 MG/ML Vial IV ×2 (12:51→21:49)
[2024-01-28] MEDS: 0.9% Normal Saline (1000mL) 1,000 ML 150 ML IV (12:57)
[2024-01-28 13:04] LABS: Absolute Lymphocyte Count 2.07 X10^3/uL (0.83-4.51); Basophil# 0.12 X10^3/uL; Basophil% 1.4 % (0-1); Eosinophils% 2.4 % (0-5); Hematocrit 49.7 % (40-54); Hemoglobin 17.4 g/dL (13.0-16.5); Lymphocyte # 2.07 X10^3/ul (0.83-4.51); Lymphocyte % 24.6 % (19-41); Mean Corpuscular Hgb 31.9 pg (27.0-32.0); Mean Corpuscular Volume 91.2 fL (80-94); Mean Platelet Vol. 10.6 fl (6.2-12.0); Monocyte# 0.83 X10^3/uL; Monocyte% 9.9 % (0-10); NRBC Flagged by Analyzer 0 % (0-5); Neutrophil # 5.04 X10^3/uL (2.7-7.7); Neutrophil % 59.9 % (47-70); Platelet Count 219 K/mm3 (150-450); RBC Distribution Width CV 11.9 % (11.6-14.6); RBC Distribution Width SD 39.7 fl (35.1-43.9); Red Blood Count 5.45 M/mm3 (4.6-6.2); White Blood Count 8.4 K/mm3 (4.4-11.0)
[2024-01-28 13:23] LABS: Alcohol, Blood (Medical)-Serum < 3.0 mg/dL; Anion Gap 3 (5-15); BUN 19 mg/dL (7-18); BUN/Creat Ratio 21.9 RATIO (10-20); Calcium,Total 10.3 mg/dL (8.5-10.1); Chloride 105 mmol/L (98-107); Creatinine, Serum 0.87 mg/dL (0.70-1.30); EST Glomerular Filtration Rate 98 mL/min (>60); Est Glom Filt Rate - Afr Amer 119 mL/min (>60); Estimated Creatinine Clearance 79.46 ml/min; Glucose 179 mg/dL (74-106); Potassium 4.5 mmol/L (3.5-5.1); Sodium Level 135 mmol/L (136-145)
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
--- NOTE | 2024-01-28 14:13 | NURSING ---
MED SURG OBS WHITE INTRACTABLE PAIN, GENERALIZED WEAKNESS, FAILURE TO THRIVE
[2024-01-28 14:17] LABS: Amphetamine Urine VISTA NEGATIVE (<1000 ng/mL); Barbiturate Urine VISTA NEGATIVE (< 200 ng/mL); Benzodiazepine Urine VISTA NEGATIVE (< 200 ng/mL); Cocaine Urine VISTA NEGATIVE (< 300 ng/mL); Ecstacy Urine VISTA NEGATIVE (< 500 ng/mL); Methadone Urine VISTA NEGATIVE (< 300 ng/mL); PCP Urine VISTA NEGATIVE (< 25 ng/mL); THC Urine VISTA POSITIVE (< 50 ng/mL); Vista UDS pH Range 6
[2024-01-28 14:25] VITALS: BP 138/81; PULSE 82; RESP 18; O2SAT 97
[2024-01-28 14:57] LABS: Magnesium 2.2 mg/dL (1.6-2.6)
[2024-01-28 15:42] VITALS: BP 141/86; PULSE 80; RESP 16; TEMP 36.4; O2SAT 97
--- NOTE | 2024-01-28 15:59 | RAD_ITS ---
STUDY: X-RAY - PELVIS AND LEFT HIP REASON FOR EXAM: Male, 53 years old. Pain TECHNIQUE: 3 views of the pelvis and hip. COMPARISON: None. FINDINGS: There is a non-specific bowel gas pattern. Normal visualized soft tissue structures. Normal bilateral iliac wings, sacroiliac joints and visualized sacrum. Old healed fractures of the left inferior and superior pubic ramus as well as acetabulum.. Normal pubic symphysis. Normal bilateral ischial tuberosities. Normal visualized femoral head. . Normal hip joint. RAD/HIP, UNI W/ Pelvis 2-3 Views IMPRESSION: Old healed fractures of left pubis and acetabulum. No acute fracture or dislocation of the left hip.. Electronically Signed: Prasanth Pedraza MD at 17:23 EDT ,
--- NOTE | 2024-01-28 15:59 | RAD_ITS ---
INDICATION: Pain EXAMINATION/TECHNIQUE: X-RAY - LEFT XR Shoulder Min 2 Views 4 VIEWS COMPARISON: Right shoulder on same day FINDINGS: SOFT TISSUES: No soft tissue swelling or gas. No radiopaque foreign body. BONES/JOINTS: No acute fracture. No Hill-Sachs or Bankart lesion.. Normal glenohumeral and acromioclavicular alignment. Mild acromioclavicular degenerative osteophyte formation. No sclerotic or destructive changes observed. RAD/Shoulder min 2 Views IMPRESSION: No evidence of acute injury. Mild acromioclavicular degenerative change.. Electronically Signed: Santana Jean MD at 22:25 EDT ,
--- NOTE | 2024-01-28 15:59 | RAD_ITS ---
INDICATION: Pain EXAMINATION/TECHNIQUE: X-RAY - XR Spine Thoracic 3 Views COMPARISON: Cervical spine radiograph on same day FINDINGS: VERTEBRAE: No fracture or acute compression deformity. Chronic anterior vertebral loss at T12 and L1 with mild endplate degenerative change. No spondylolisthesis. Preservation of the normal thoracic kyphosis. DISCS: Disc spaces are maintained. INCLUDED CHEST/ABDOMEN: No acute abnormalities. RAD/Thoracic Spine 3 Views IMPRESSION: No evidence of thoracic spinal fracture or spondylolisthesis. Electronically Signed: Santana Jean MD at 22:51 EDT ,
--- NOTE | 2024-01-28 15:59 | RAD_ITS ---
INDICATION: Pain EXAMINATION/TECHNIQUE: X-RAY - XR Spine Lumbar Min 4 Views COMPARISON: None. FINDINGS: VERTEBRAE: Mild anterior vertebral height loss at T11 and T12. Partial sacralization of L5. No fracture or acute compression deformity. No spondylolisthesis. Preservation of the normal lumbar lordosis. Mild lower lumbar facet arthropathy. DISCS: Mild disc height loss in the lower lumbar spine.. INCLUDED ABDOMEN: Included bowel gas pattern is non-obstructive. Aortic atherosclerosis. RAD/L/S Spine Min 4 Views IMPRESSION: No evidence of lumbar spinal fracture or spondylolisthesis. Lower lumbar spondylosis with mild disc height loss and facet arthropathy. Aortic atherosclerosis. Presumed partial sacralization of L5. Levels numbered from inferior for purposes of this exam. Electronically Signed: Santana Jean MD at 23:00 EDT ,
--- NOTE | 2024-01-28 15:59 | RAD_ITS ---
INDICATION: Pain EXAMINATION/TECHNIQUE: X-RAY - XR Spine Cervical 4 or 5 Views COMPARISON: None. FINDINGS: VERTEBRAE: Chronic vertebral height loss at C4 C5 C6 with reversal of the normal cervical lordosis. No acute compression deformity. Facet arthropathy in the upper cervical spine with degenerative grade 1 anterolisthesis C3 on C4.. Mild anterior and posterior endplate osteophyte formation. Degenerative grade 1 retrolisthesis C5 on C6. Mild multilevel mid cervical neural foraminal stenosis. . DISCS: Disc height loss at C4-C5 and C5-C6. NECK SOFT TISSUES: No prevertebral soft tissue widening. LUNG APICES: Clear. RAD/Cerv Spine 4 or 5 Views IMPRESSION: No evidence of acute fracture or spondylolisthesis. Moderate cervical spondylosis. Electronically Signed: Santana Jean MD at 22:47 EDT ,
[2024-01-28 16:02] VITALS: BMI 19.9
--- NOTE | 2024-01-28 16:02 | RAD_ITS ---
INDICATION: PAIN EXAMINATION/TECHNIQUE: X-RAY - RIGHT XR Shoulder Min 2 Views 4 VIEWS COMPARISON: Left shoulder on same day FINDINGS: SOFT TISSUES: No soft tissue swelling or gas. No radiopaque foreign body. BONES/JOINTS: No acute fracture.. Normal glenohumeral and acromioclavicular alignment. Minimal acromioclavicular degenerative osteophyte formation. Preservation of the joint space.. No sclerotic or destructive changes observed. RAD/Shoulder min 2 Views IMPRESSION: No evidence of acute injury. Mild acromioclavicular degenerative change.. Electronically Signed: Santana Jean MD at 17:21 EDT ,
[2024-01-28 16:25] LABS: Erythrocyte Sedimentation Rate 18 mm/hr (0-20)
[2024-01-28 16:35] VITALS: BP 138/82; PULSE 62; RESP 18; TEMP 36.6; O2SAT 98
[2024-01-28 18:11] LABS: Bedside Glucose 241 mg/dL (74-106)
[2024-01-28] MEDS: Gabapentin 100 MG Capsule PO (18:27)
[2024-01-28] MEDS: Insulin Lispro 100 UNIT/ML INSULN.PEN SC ×2 (18:27→21:47)
[2024-01-28] MEDS: MethylPREDNISolone DosePak 4 MG BOX PO ×2 (18:29→21:48)
[2024-01-28] MEDS: Lidocaine 5% Patch 3 PATCH TOPICAL (18:32)
[2024-01-28] MEDS: Glucerna Shake 120 ML LIQUID PO ×2 (18:42→21:55)
[2024-01-28] MEDS: 0.9% Saline Lock 10 ML Syringe IV (18:49)
[2024-01-28 20:29] LABS: HIV - WCH Non-Reactive (Nonreactive); Hepatitis B Surface Antibody Non-Reactive; Hepatitis B Surface Antigen Non-Reactive (Nonreactive); Hepatitis C Antibody Non-Reactive (Nonreactive); Syphilis Antibodies Non-reactive
[2024-01-28 21:33] VITALS: O2SAT 95
[2024-01-28 21:43] VITALS: BP 99/72; PULSE 64; RESP 16; TEMP 36.6; O2SAT 99
[2024-01-28] MEDS: tiZANidine HCl 2 MG Tablet 4 MG PO (21:49)
[2024-01-28 22:27] LABS: Bedside Glucose 259 mg/dL (74-106)
[2024-01-29] VITALS (8 sets, daily range): BP systolic 116–155; BP diastolic 53–74; PULSE 59–80; RESP 14–18; TEMP 36.4–37.1; O2SAT 93–100; BMI 19.8
[2024-01-29] MEDS: Acetaminophen 325 MG Tablet 650 MG PO ×3 (03:24→11:59)
[2024-01-29 04:57] LABS: Absolute Lymphocyte Count 0.91 X10^3/uL (0.83-4.51); Absolute Neutrophil Count 8.6 X10^3/uL (2.0-7.7); Basophil# 0.04 X10^3/uL; Basophil% 0.4 % (0-1); Eosinophil# 0.02 X10^3/uL; Eosinophils% 0.2 % (0-5); Hematocrit 47.1 % (40-54); Lymphocyte # 0.91 X10^3/ul (0.83-4.51); Lymphocyte % 9.1 % (19-41); Mean Corpuscular Hgb 31.5 pg (27.0-32.0); Mean Corpuscular Volume 92.7 fL (80-94); Mean Platelet Vol. 11.1 fl (6.2-12.0); Monocyte# 0.22 X10^3/uL; Monocyte% 2.2 % (0-10); NRBC Flagged by Analyzer 0 % (0-5); Neutrophil # 8.63 X10^3/uL (2.7-7.7); Neutrophil % 86.8 % (47-70); Platelet Count 211 K/mm3 (150-450); RBC Distribution Width CV 11.9 % (11.6-14.6); RBC Distribution Width SD 40.9 fl (35.1-43.9); Red Blood Count 5.08 M/mm3 (4.6-6.2)
[2024-01-29] MEDS: Ketorolac 15 MG/ML Vial IV ×2 (05:14→14:10)
[2024-01-29] MEDS: tiZANidine HCl 2 MG Tablet 4 MG PO ×3 (05:14→21:12)
[2024-01-29] MEDS: Levothyroxine 100 MCG Tablet PO (05:14)
[2024-01-29 05:32] LABS: ALB/GLOB Ratio 0.9 RATIO (0.9-2.4); AST(SGOT) 15 U/L (15-37); Alanine Aminotransfer ALT/SGPT 34 U/L (16-61); Albumin, Serum 3.4 g/dL (3.2-5.0); Alkaline Phosphatase 112 U/L (45-117); Anion Gap 8 (5-15); BUN 29 mg/dL (7-18); BUN/Creat Ratio 29.8 RATIO (10-20); Calcium,Total 9.6 mg/dL (8.5-10.1); Chloride 104 mmol/L (98-107); Creatinine, Serum 0.97 mg/dL (0.70-1.30); EST Glomerular Filtration Rate 86 mL/min (>60); Est Glom Filt Rate - Afr Amer 104 mL/min (>60); Estimated Creatinine Clearance 71.27 ml/min; Globulin 3.6 g/dL (2.2-4.2); Glucose 334 mg/dL (74-106); Potassium 4.7 mmol/L (3.5-5.1); Sodium Level 135 mmol/L (136-145)
[2024-01-29] MEDS: Insulin Lispro 100 UNIT/ML INSULN.PEN SC ×4 (06:42→21:12)
[2024-01-29 07:01] LABS: Bedside Glucose 274 mg/dL (74-106)
[2024-01-29] MEDS: Mag Hydrox/Al Hydrox/Simeth 30 ML UDC PO (07:46)
[2024-01-29] MEDS: Senna/Docusate Sodium 1 Tablet 2 TABLET PO (07:46)
[2024-01-29] MEDS: Gabapentin 100 MG Capsule PO ×3 (07:47→17:06)
[2024-01-29] MEDS: ARIPiprazole 5 MG Tablet PO (07:47)
[2024-01-29] MEDS: DULoxetine Hcl 20 MG Capsule 40 MG PO (07:47)
[2024-01-29] MEDS: MethylPREDNISolone DosePak 4 MG BOX PO ×2 (07:47→11:59)
[2024-01-29] MEDS: Lisinopril 10 MG Tablet PO (07:48)
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
[2024-01-29 09:51] LABS: Hemoglobin A1c 7.7 % (3.8-5.6)
[2024-01-29 11:34] LABS: Bedside Glucose 218 mg/dL (74-106)
[2024-01-29] MEDS: Ondansetron 4 MG/2 ML Vial IV (11:57)
[2024-01-29] MEDS: LORazepam 2 MG/ML Syringe IV (11:57)
[2024-01-29] MEDS: 0.9% Saline Lock 10 ML Syringe IV ×2 (12:01→14:10)
--- NOTE | 2024-01-29 12:26 | PN.HOSP_ITS ---
Reason for Visit Reason for Visit: Diagnoses Adult failure to thrive (01/28/24) Subjective Subjective Patient was seen and examined today, he stated he had an MRI of his neck done at [facility]-there are no records of an MRI there according to medical records at [facility]. I have decided to proceed with an MRI of the patient's neck since he stated in the medical record that he was scheduled to have surgical intervention but did not. Objective Data Objective Data Vital Signs: Vital Signs Temp Pulse Resp BP Pulse Ox O2 Del Method 97.9 F 60 18 155/74 H 98 Room Air 01/29/24 07:37 01/29/24 07:37 01/29/24 07:37 01/29/24 07:37 01/29/24 07:37 01/29/24 07:37 Oxygen Delivery Method Room Air Weight: 55.8 kg Body Mass Index (BMI) 19.8 Intake & Output: Intake and Output for Last 24 Hours 01/27/24 01/28/24 01/29/24 23:59 23:59 23:59 Intake Total 1450 / 2270 1060 / 1060 Output Total 775 / 775 Balance 1450 / 2045 285 / 285 Medical Nutrition Assessment Dietitian: Malnutrition Criteria Met Start: 01/29/24 11:20 Freq: Status: Active Protocol: Document 01/29/24 11:20 ZAIDA (Rec: 01/29/24 11:20 JAME [id number]) Nutrition Malnutrition Evidence of Malnutrition Exists Yes Malnutrition (moderate): Chronic Evidenced By Weight Loss (Moderate), Physical Changes (Moderate) Clinical Problem Chronic Disease or Condition Related Malnutrition Etiology related to physiological changes impacting oral intakes Signs/Symptoms as evidenced by significant weight loss of 7.5% in 3 months based upon 10/29/23 weight of 133lb and physical evidence of moderate muscle and fat wasting (temples, clavicles, deltoids, buccal, etc). Status Active Problem Recommendation Dietitian Recommendations/Changes Continue with Consistent Carb - Calorie Controlled diet ( 1800kcal) with Glucerna 120mL 4x/day with medpass to help increase oral intakes and prevent further weight loss. Will assess intakes and tolerance of ONS upon f/u and modify interventions as needed . Lab / Micro Data 01/29/24 04:04 01/29/24 04:04 Labs: Laboratory Results - last 24 hr 01/28/24 12:53: WBC 8.4, RBC 5.45, Hgb 17.4 H, Hct 49.7, MCV 91.2, MCH 31.9, MCHC 35.0, RDW Std Deviation 39.7, RDW Coeff of Joe 11.9, Plt Count 219, MPV 10.6, Immature Gran % (Auto) 1.800 H, Neut % (Auto) 59.9, Lymph % (Auto) 24.6, [place] % (Auto) 9.9, Eos % (Auto) 2.4, Baso % (Auto) 1.4 H, Absolute Neuts (auto) 5.0, Absolute Lymphs (auto) 2.07, Nucleated RBC % 0, ESR 18, Sodium 135 L, Potassium 4.5, Chloride 105, Carbon Dioxide 27.0, Anion Gap 3 L, BUN 19 H, Creatinine 0.87, Estim Creat Clear Calc 79.46, Est GFR (MDRD) Af Amer 119, Est GFR (MDRD) Non-Af 98, BUN/Creatinine Ratio 21.9 H, Glucose 179 H, Calcium 10.3 H , Magnesium 2.2, C-React Prot Ext Range 26.20 H, Ethyl Alcohol < 3.0, Syphilis Total Ab Non-reactive, Hep Bs Antigen Non-Reactive, Hep Bs Antibody Non- Reactive, Hepatitis C Antibody Non-Reactive, HIV 1&2 Antibody Non-Reactive 01/28/24 13:32: Urine Opiates Screen NEGATIVE, Urine Methadone Screen NEGATIVE, Ur Barbiturates Screen NEGATIVE, Ur Phencyclidine Scrn NEGATIVE, Ur Amphetamines Screen NEGATIVE, MDMA (Ecstasy) Screen NEGATIVE, U Benzodiazepines Scrn NEGATIVE, Urine Cocaine Screen NEGATIVE, U Cannabinoids Screen POSITIVE H, Ur Drug Screen Comment 01/28/24 17:53: POC Glucose 241 H 01/28/24 21:46: POC Glucose 259 H 01/29/24 04:04: WBC 10.0, RBC 5.08, Hgb 16.0, Hct 47.1, MCV 92.7, MCH 31.5, MCHC 34.0, RDW Std Deviation 40.9, RDW Coeff of Joe 11.9, Plt Count 211, MPV 11.1, I mmature Gran % (Auto) 1.300 H, Neut % (Auto) 86.8 H, Lymph % (Auto) 9.1 L, [place] % (Auto) 2.2, Eos % (Auto) 0.2, Baso % (Auto) 0.4, Absolute Neuts (auto) 8.6 H, Absolute Lymphs (auto) 0.91, Nucleated RBC % 0, Sodium 135 L, Potassium 4.7, Chloride 104, Carbon Dioxide 23.0, Anion Gap 8, BUN 29 H, Creatinine 0.97, Estim Creat Clear Calc 71.27, Est GFR (MDRD) Af Amer 104, Est GFR (MDRD) Non-Af 86, B UN/Creatinine Ratio 29.8 H, Glucose 334 H, Hemoglobin A1c 7.7 H, Calcium 9.6, Total Bilirubin 0.70, AST 15, ALT 34, Alkaline Phosphatase 112, Total Protein 7.0, Albumin 3.4, Globulin 3.6, Albumin/Globulin Ratio 0.9 01/29/24 06:41: POC Glucose 274 H 01/29/24 11:07: POC Glucose 218 H Radiography Diagnostic Testing: Radiology Impression Cervical Spine X-Ray 01/28/24 15:59 IMPRESSION: No evidence of acute fracture or spondylolisthesis. Moderate cervical spondylosis. Electronically Signed: Santana Jean MD at 22:47 EDT , Hip/Pelvis X-Ray 01/28/24 15:59 IMPRESSION: Old healed fractures of left pubis and acetabulum. No acute fracture or dislocation of the left hip.. Electronically Signed: Prasanth Pedraza MD at 17:23 EDT , Lumbar Spine X-Ray 01/28/24 15:59 IMPRESSION: No evidence of lumbar spinal fracture or spondylolisthesis. Lower lumbar spondylosis with mild disc height loss and facet arthropathy. Aortic atherosclerosis. Presumed partial sacralization of L5. Levels numbered from inferior for purposes of this exam. Electronically Signed: Santana Jean MD at 23:00 EDT , Shoulder X-Ray 01/28/24 15:59 IMPRESSION: No evidence of acute injury. Mild acromioclavicular degenerative change.. Electronically Signed: Santana Jean MD at 22:25 EDT Reading Location ID and State: [facility] / [place] Tel , Service support , Thoracic Spine X-Ray 01/28/24 15:59 IMPRESSION: No evidence of thoracic spinal fracture or spondylolisthesis. Electronically Signed: Santana Jean MD at 22:51 EDT Reading Location ID and State: [facility] / [place] Tel , Service support , Shoulder X-Ray 01/28/24 16:02 IMPRESSION: No evidence of acute injury. Mild acromioclavicular degenerative change.. Electronically Signed: Santana Jean MD at 17:21 EDT Reading Location ID and State: [facility] / [place] Tel , Service support , Physical Exam Const alert, oriented x3, no apparent distress and average body habitus General Appearance: cooperative, well kempt and well developed Orientation / Consciousness: awake, oriented to person, oriented to place and oriented to time HEENT normocephalic, head/scalp atraumatic and moist oral mucous membranes Eyes PERRL, EOMs intact bilaterally and conjunctivae normal Neck supple, no JVD, thyroid normal and no carotid bruits General: trachea midline Resp normal respiratory effort, no retractions, no use of accessory muscles and clear to auscultation bilaterally Auscultation: Negative for rales, rhonchi or wheezes Cardio regular rate, regular rhythm, S1 normal heart sound, S2 normal heart sound, no murmurs, no rub and no gallops GI normal to inspection, nondistended, normoactive bowel sounds, soft to palpation, non-tender and non-distended Extremity no clubbing, cyanosis or edema Skin no rashes or lesions noted General Skin Exam: no breakdown Neuro oriented x3, CN's II-XII intact bilaterally, moves all extremities, no focal motor deficits and no sensory deficits noted Sensorium / Orientation: awake and alert Speech: speech normal Motor Exam: strength 5/5 throughout Psych affect normal Assessment & Plan Assessment/Plan (1) Hypertension: PLAN: Plan 1. Acute debility-again patient will have an MRI of his neck to rule out any cervical stenosis or other pathology. Patient will be seen by PT and OT, an attempt will be made to place the patient at his nursing facility. #2 bipolar disorder/schizophrenia-complicates care, management, recovery, and prognosis, patient remains on his present medications #3 type 2 diabetes-blood sugars will be monitored, sliding scale insulin will be administered as needed #4 hypothyroidism-patient is on Synthroid Total clinical time spent by myself addressing the patient's medical issues, reviewing all of his data, and collaborating with patient's care team: 35 minutes Charges/Coding Visit Charges Inpatient E&M: 01416 Subs Hosp L2
--- NOTE | 2024-01-29 15:13 | CHAPLAIN ---
Type of Pastoral Visit ___ Initial Visit ___ Follow-up Visit ___ On-call Visit ___ General Patient Visit ___ Spiritual Assessment ___ Family Conference ___ Bereavement ___ Rapid Response ___ Code Blue ___ Other (describe below) Pastoral Care Referral From ___ Patient ___ Family ___ Nurse ___ Physician ___ Career Technical Supervisor ___ Product Lister ___ Other (describe below) Sacrament/Intervention ___ Active listening ___ Anointing ___ Advent ___ Bereavement ___ Communion ___ Karmen exploration ___ ___ Life review ___ Prayer ___ Reconciliation ___ Sacrament of Sick ___ Supportive presence ___ Wedding ___ Other (describe below) Pastoral Comments sign on door states that patient does not want to be disturbed so honored this request
--- NOTE | 2024-01-29 15:22 | CASEMGMT ---
Met with patient to complete LYN form. LYN form explained to patient who voiced understanding and signed form. Original form placed in pt?s chart and copy provided to?patient. Promise Brown, Discharge Planning Asst
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
[2024-01-29] MEDS: Celecoxib 200 MG Capsule PO (17:06)
[2024-01-29 17:28] LABS: Bedside Glucose 244 mg/dL (74-106)
[2024-01-29 21:32] LABS: Bedside Glucose 195 mg/dL (74-106)
[2024-01-30] MEDS: Celecoxib 200 MG Capsule PO ×3 (00:20→21:25)
[2024-01-30 03:35] VITALS: BP 124/54; PULSE 55; RESP 16; TEMP 36.6; O2SAT 97
[2024-01-30] MEDS: Levothyroxine 100 MCG Tablet PO (05:29)
[2024-01-30] MEDS: Insulin Lispro 100 UNIT/ML INSULN.PEN SC ×4 (05:29→21:26)
[2024-01-30] MEDS: tiZANidine HCl 2 MG Tablet 4 MG PO ×3 (05:29→21:25)
[2024-01-30 06:39] LABS: Bedside Glucose 225 mg/dL (74-106)
[2024-01-30] MEDS: ARIPiprazole 5 MG Tablet PO (08:15)
[2024-01-30] MEDS: Gabapentin 100 MG Capsule PO ×3 (08:15→11:57)
[2024-01-30] MEDS: DULoxetine Hcl 20 MG Capsule 40 MG PO (08:16)
[2024-01-30] MEDS: Lisinopril 10 MG Tablet PO (08:17)
[2024-01-30] MEDS: Acetaminophen 325 MG Tablet 650 MG PO ×3 (08:18→20:01)
[2024-01-30 08:25] VITALS: O2SAT 95
[2024-01-30 08:34] VITALS: BP 121/73; PULSE 66; RESP 18; TEMP 36.7; O2SAT 98
[2024-01-30 11:43] LABS: Bedside Glucose 284 mg/dL (74-106)
[2024-01-30 15:30] VITALS: BP 134/67; PULSE 63; RESP 18; TEMP 36.7; O2SAT 99
--- NOTE | 2024-01-30 15:53 | PN.HOSP_ITS ---
Reason for Visit Reason for Visit: Diagnoses Essential (primary) hypertension (01/28/24) Adult failure to thrive (01/28/24) Subjective Subjective Patient was seen and examined today, he continues to complain about generalized pain, he told me at first that he was not going to participate in occupational therapy because it hurt too much, I told him it was necessary for him to follow through with PT and OT in order to get him placed in a [facility] center- patient understood this. Objective Data Objective Data Vital Signs: Vital Signs Temp Pulse Resp BP Pulse Ox O2 Del Method 98.0 F 63 18 134/67 H 99 Room Air 01/30/24 15:30 01/30/24 15:30 01/30/24 15:30 01/30/24 15:30 01/30/24 15:30 01/30/24 15:30 Oxygen Delivery Method Room Air Weight: 55.8 kg Body Mass Index (BMI) 19.8 Intake & Output: Intake and Output for Last 24 Hours 01/28/24 01/29/24 01/30/24 23:59 23:59 23:59 Intake Total 1450 / 2270 1060 / 1300 1215 / 1215 Output Total 975 / 1375 1400 / 1400 Balance 1450 / 2045 85 / -75 -185 / -185 Medical Nutrition Assessment Dietitian: Malnutrition Criteria Met Start: 01/29/24 11:20 Freq: Status: Active Protocol: Document 01/29/24 11:20 ZAIDA (Rec: 01/29/24 11:20 [facility] [id number]) Nutrition Malnutrition Evidence of Malnutrition Exists Yes Malnutrition (moderate): Chronic Evidenced By Weight Loss (Moderate), Physical Changes (Moderate) Clinical Problem Chronic Disease or Condition Related Malnutrition Etiology related to physiological changes impacting oral intakes Signs/Symptoms as evidenced by significant weight loss of 7.5% in 3 months based upon 10/29/23 weight of 133lb and physical evidence of moderate muscle and fat wasting (temples, clavicles, deltoids, buccal, etc). Status Active Problem Recommendation Dietitian Recommendations/Changes Continue with Consistent Carb - Calorie Controlled diet ( 1800kcal) with Glucerna 120mL 4x/day with medpass to help increase oral intakes and prevent further weight loss. Will assess intakes and tolerance of ONS upon f/u and modify interventions as needed . Lab / Micro Data 01/29/24 04:04 01/29/24 04:04 Labs: Laboratory Results - last 24 hr 01/29/24 17:02: POC Glucose 244 H 01/29/24 21:11: POC Glucose 195 H 01/30/24 05:28: POC Glucose 225 H 01/30/24 11:22: POC Glucose 284 H Physical Exam Const alert, oriented x3 and no apparent distress General Appearance: cooperative, well kempt and well developed Orientation / Consciousness: awake, oriented to person, oriented to place and oriented to time HEENT normocephalic and moist oral mucous membranes Eyes PERRL, EOMs intact bilaterally and conjunctivae normal Neck supple, no JVD, thyroid normal and no carotid bruits General: trachea midline Resp normal respiratory effort, no retractions, no use of accessory muscles and clear to auscultation bilaterally Auscultation: Negative for rales, rhonchi or wheezes Cardio regular rate, regular rhythm, S1 normal heart sound, S2 normal heart sound, no murmurs, no rub and no gallops GI normal to inspection, nondistended, normoactive bowel sounds, soft to palpation, non-tender and non-distended Extremity no clubbing, cyanosis or edema Skin no rashes or lesions noted General Skin Exam: no breakdown Neuro oriented x3, CN's II-XII intact bilaterally, moves all extremities, no focal motor deficits and no sensory deficits noted Sensorium / Orientation: awake and alert Speech: speech normal Psych affect normal Assessment & Plan Assessment/Plan (1) Chronic back pain: (2) Hypertension: PLAN: Plan 1. 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 #2 bipolar disorder/schizophrenia-complicates care, management, recovery, and prognosis, patient remains on his present medications #3 type 2 diabetes-blood sugars will be monitored, sliding scale insulin will be administered as needed #4 hypothyroidism-patient is on Synthroid #5 chronic moderate protein and caloric malnutrition-related to physiological changes impacting oral intake as evidenced by significant weight loss of 7.5% in 3 months based upon 10/29/2023 weight of 133 pounds and physical evidence of moderate muscle and fat wasting-continue with consistent carb 1800-calorie diet with Glucerna 120 cc 4 times a day with med Pass to help increase oral intake prevent further weight loss, nutritional services will continue to see the patient Total clinical time spent by myself addressing the patient's medical issues, reviewing all of his data, and collaborating with patient's care team: 35 minutes Charges/Coding Visit Charges Inpatient E&M: 66297 Subs Hosp L2
[2024-01-30 16:16] LABS: Bedside Glucose 178 mg/dL (74-106)
[2024-01-30] MEDS: Senna/Docusate Sodium 1 Tablet 2 TABLET PO (20:01)
[2024-01-30 20:10] VITALS: BP 133/75; PULSE 66; RESP 16; TEMP 36.6; O2SAT 99
[2024-01-30] MEDS: Glucerna Shake 120 ML LIQUID PO (21:29)
[2024-01-30 22:30] LABS: Bedside Glucose 247 mg/dL (74-106)
[2024-01-30] MEDS: Ketorolac 15 MG/ML Vial IV (22:44)
[2024-01-30] MEDS: 0.9% Saline Lock 10 ML Syringe IV (22:45)
[2024-01-31 02:40] VITALS: BP 158/68; PULSE 61; RESP 16; TEMP 36.6; O2SAT 97
[2024-01-31 06:00] VITALS: BMI 19.8
[2024-01-31] MEDS: tiZANidine HCl 2 MG Tablet 4 MG PO ×3 (06:06→21:11)
[2024-01-31] MEDS: Insulin Lispro 100 UNIT/ML INSULN.PEN SC ×4 (06:06→21:12)
[2024-01-31] MEDS: Levothyroxine 100 MCG Tablet PO (06:06)
[2024-01-31] MEDS: Acetaminophen 325 MG Tablet 650 MG PO (06:29)
[2024-01-31] MEDS: Senna/Docusate Sodium 1 Tablet 2 TABLET PO ×2 (06:29→09:15)
[2024-01-31 06:35] LABS: Bedside Glucose 215 mg/dL (74-106)
[2024-01-31 07:51] VITALS: O2SAT 95
[2024-01-31] MEDS: 0.9% Saline Lock 10 ML Syringe IV ×4 (09:13→21:36)
[2024-01-31] MEDS: Ketorolac 15 MG/ML Vial IV ×3 (09:13→21:36)
[2024-01-31] MEDS: Gabapentin 100 MG Capsule PO ×3 (09:14→16:39)
[2024-01-31] MEDS: Lidocaine 5% Patch 3 PATCH TOPICAL (09:16)
[2024-01-31] MEDS: DULoxetine Hcl 20 MG Capsule 40 MG PO (09:21)
[2024-01-31] MEDS: Lisinopril 10 MG Tablet PO (09:22)
[2024-01-31] MEDS: ARIPiprazole 5 MG Tablet PO (09:22)
[2024-01-31] MEDS: Glucerna Shake 120 ML LIQUID PO ×4 (09:26→21:11)
[2024-01-31 09:30] VITALS: BP 130/62; PULSE 66; RESP 19; TEMP 36.8; O2SAT 97
--- NOTE | 2024-01-31 12:01 | PCM.PN.HOSP ---
Reason for Visit Reason for Visit: Diagnoses Other chronic pain (01/28/24) Essential (primary) hypertension (01/28/24) Dorsalgia, unspecified (01/28/24) Adult failure to thrive (01/28/24) Subjective Subjective Patient was seen and examined today, he still continues to complain of generalized pain. Patient does not appear in distress however, patient continues to act impulsive at times. Objective Data Objective Data Vital Signs: Vital Signs Temp Pulse Resp BP Pulse Ox O2 Del Method 97.8 F 61 16 158/68 H 95 Room Air 01/31/24 02:40 01/31/24 02:40 01/31/24 02:40 01/31/24 02:40 01/31/24 07:51 01/31/24 07:51 Oxygen Delivery Method Room Air Weight: 55.9 kg Body Mass Index (BMI) 19.8 Intake & Output: Intake and Output for Last 24 Hours 01/29/24 01/30/24 01/31/24 23:59 23:59 23:59 Intake Total 1060 / 1300 1215 / 1215 Output Total 975 / 1375 1400 / 1700 600 / 600 Balance 85 / -75 -185 / -485 -600 / -600 Medical Nutrition Assessment Dietitian: Malnutrition Criteria Met Start: 01/29/24 11:20 Freq: Status: Active Protocol: Document 01/29/24 11:20 ZAIDA (Rec: 01/29/24 11:20 ZAIDA [id number]) Nutrition Malnutrition Evidence of Malnutrition Exists Yes Malnutrition (moderate): Chronic Evidenced By Weight Loss (Moderate), Physical Changes (Moderate) Clinical Problem Chronic Disease or Condition Related Malnutrition Etiology related to physiological changes impacting oral intakes Signs/Symptoms as evidenced by significant weight loss of 7.5% in 3 months based upon 10/29/23 weight of 133lb and physical evidence of moderate muscle and fat wasting (temples, clavicles, deltoids, buccal, etc). Status Active Problem Recommendation Dietitian Recommendations/Changes Continue with Consistent Carb - Calorie Controlled diet ( 1800kcal) with Glucerna 120mL 4x/day with medpass to help increase oral intakes and prevent further weight loss. Will assess intakes and tolerance of ONS upon f/u and modify interventions as needed . Lab / Micro Data 01/29/24 04:04 01/29/24 04:04 Labs: Laboratory Results - last 24 hr 01/30/24 15:58: POC Glucose 178 H 01/30/24 21:23: POC Glucose 247 H 01/31/24 06:05: POC Glucose 215 H Physical Exam Narrative alert, oriented x3 and no apparent distress General Appearance: cooperative, well kempt and well developed Orientation / Consciousness: awake, oriented to person, oriented to place and oriented to time HEENT normocephalic and moist oral mucous membranes Eyes PERRL, EOMs intact bilaterally and conjunctivae normal Neck supple, no JVD, thyroid normal and no carotid bruits General: trachea midline Resp normal respiratory effort, no retractions, no use of accessory muscles and clear to auscultation bilaterally Auscultation: Negative for rales, rhonchi or wheezes Cardio regular rate, regular rhythm, S1 normal heart sound, S2 normal heart sound, no murmurs, no rub and no gallops GI normal to inspection, nondistended, normoactive bowel sounds, soft to palpation, non-tender and non-distended Extremity no clubbing, cyanosis or edema Skin no rashes or lesions noted General Skin Exam: no breakdown Neuro oriented x3, CN's II-XII intact bilaterally, moves all extremities, no focal motor deficits and no sensory deficits noted Sensorium / Orientation: awake and alert Speech: speech normal Psych Patient appears to get agitated easily Assessment & Plan Assessment/Plan (1) Chronic back pain: (2) Hypertension: PLAN: Plan 1. 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 We are awaiting approval from his insurance carrier for the patient to go to a [place] [facility] for short-term rehab services. Again I question how impaired the patient is when doing ADLs and walking. #2 bipolar disorder/schizophrenia-complicates care, management, recovery, and prognosis, patient remains on his present medications #3 type 2 diabetes-blood sugars will be monitored, sliding scale insulin will be administered as needed #4 hypothyroidism-patient is on Synthroid #5 chronic moderate protein and caloric malnutrition-related to physiological changes impacting oral intake as evidenced by significant weight loss of 7.5% in 3 months based upon 10/29/2023 weight of 133 pounds and physical evidence of moderate muscle and fat wasting-continue with consistent carb 1800-calorie diet with Glucerna 120 cc 4 times a day with med Pass to help increase oral intake prevent further weight loss, nutritional services will continue to see the patient Total clinical time spent by myself addressing the patient's medical issues, reviewing all of his data, and collaborating with patient's care team: 35 minutes Charges/Coding Visit Charges Inpatient E&M: 18293 Subs Hosp L2
--- NOTE | 2024-01-31 12:17 | NURSING ---
Pt getting Agitated bc he is in pain but also mad at staff that we put the bed exit alarm on. This RN attempted to educate pt on importance of using it. I don't ever get up without help Pt states he will call. Pt was also agitated and yelling to our PEST CONTROL SERVICE TECHNICIAN Janet that he did not want his bed exit alarm on.
[2024-01-31 12:30] LABS: Bedside Glucose 168 mg/dL (74-106)
[2024-01-31] MEDS: oxyCODONE 5 MG Tablet PO (14:18)
[2024-01-31 14:21] VITALS: BP 140/64; PULSE 76; RESP 16; TEMP 36.5; O2SAT 98
[2024-01-31 18:01] LABS: Bedside Glucose 229 mg/dL (74-106)
[2024-01-31 20:50] VITALS: BP 139/72; PULSE 55; RESP 16; TEMP 36.6; O2SAT 98
[2024-01-31 22:05] LABS: Bedside Glucose 288 mg/dL (74-106)
[2024-02-01 02:50] VITALS: BP 141/65; PULSE 58; RESP 16; TEMP 36.6; O2SAT 96
[2024-02-01 06:00] VITALS: BMI 19.9
[2024-02-01] MEDS: tiZANidine HCl 2 MG Tablet 4 MG PO ×3 (06:05→22:55)
[2024-02-01] MEDS: Insulin Lispro 100 UNIT/ML INSULN.PEN SC ×4 (06:05→23:00)
[2024-02-01] MEDS: Levothyroxine 100 MCG Tablet PO (06:05)
[2024-02-01 06:29] LABS: Bedside Glucose 194 mg/dL (74-106)
[2024-02-01] MEDS: Gabapentin 100 MG Capsule PO ×2 (08:08→12:12)
[2024-02-01] MEDS: Ketorolac 15 MG/ML Vial IV (08:13)
[2024-02-01] MEDS: Lisinopril 10 MG Tablet PO (08:19)
[2024-02-01] MEDS: ARIPiprazole 5 MG Tablet PO (08:20)
[2024-02-01] MEDS: DULoxetine Hcl 20 MG Capsule 40 MG PO (08:20)
[2024-02-01] MEDS: Glucerna Shake 120 ML LIQUID PO ×4 (08:21→23:01)
--- NOTE | 2024-02-01 08:53 | CASEMGMT ---
Social Work- Cathy spoke with [facility] case finisher who states that pt does have a meeting scheduled for Thursday to discuss [facility] appropriateness and placement. Chloe states that the process typically takes 1-2 weeks, but she will ask airplane flight attendant supervisor for emergency placement to speed up the process. CATHY discussed potential SNF placement for rehab. Chloe will reach out after she speaks with airplane flight attendant supervisor. GEMINI Hong
[2024-02-01 09:10] VITALS: BP 157/78; PULSE 67; RESP 18; TEMP 36.9; O2SAT 98
--- NOTE | 2024-02-01 11:18 | CASEMGMT ---
Addendum entered by Margaret Ortiz 02/01/24 15:39: Social Work- SW spoke with correctional counselor/case manager who states that her supervisor building maintenance reports that he would not be able to admit early to a fpc and has some concerns about his levels of independence; if pt is not independent, he would not be appropriate for the fpc. FREDA encouraged correctional counselor/case manager and supervisor building maintenance to meet with pt in-person at the hospital on Thursday for their scheduled meeting to gauge for themselves pt's appropriateness. theater manager to f/u with FREDA. GEMINI Hong Original Note: Social Work- FREDA met with pt to discuss conversation with correctional counselor/case manager at [facility] and discharge plans. Pt states that he is open to going to a SNF prior to fpc. A list of SNF providers including quality and resource use data and consistent with the patient?s preferred geographic region, medical needs, and insurance network were provided from the [facility] Guide. Pt chose [facility] (1) and [facility] (2) and SW made referrals. FREDA will follow up with pt on status of pending referrals. GEMINI Hong
[2024-02-01 11:38] LABS: Bedside Glucose 263 mg/dL (74-106)
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
[2024-02-01] MEDS: Senna/Docusate Sodium 1 Tablet 2 TABLET PO (14:11)
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
[2024-02-01] MEDS: Gabapentin 300 MG Capsule PO (16:38)
[2024-02-01] MEDS: Acetaminophen 500 MG Tablet 1000 MG PO ×2 (16:40→22:55)
[2024-02-01 16:48] VITALS: BP 137/86; PULSE 66; RESP 18; TEMP 36.9; O2SAT 98
[2024-02-01 17:07] LABS: Bedside Glucose 249 mg/dL (74-106)
[2024-02-01 22:48] VITALS: BP 148/75; PULSE 64; RESP 18; TEMP 36.3; O2SAT 100
[2024-02-01] MEDS: Celecoxib 200 MG Capsule PO (22:55)
[2024-02-02 00:44] LABS: Bedside Glucose 305 mg/dL (74-106)
[2024-02-02 04:59] VITALS: BP 113/62; PULSE 67; RESP 18; TEMP 36.9; O2SAT 98
[2024-02-02] MEDS: Acetaminophen 500 MG Tablet 1000 MG PO ×3 (05:00→21:50)
[2024-02-02] MEDS: Levothyroxine 100 MCG Tablet PO (05:01)
[2024-02-02] MEDS: tiZANidine HCl 2 MG Tablet 4 MG PO ×3 (05:01→21:50)
[2024-02-02] MEDS: Senna/Docusate Sodium 1 Tablet 2 TABLET PO (05:03)
[2024-02-02] MEDS: 0.9% Saline Lock 10 ML Syringe IV (05:05)
[2024-02-02] MEDS: Insulin Lispro 100 UNIT/ML INSULN.PEN SC ×4 (05:09→21:59)
[2024-02-02 05:29] LABS: Bedside Glucose 168 mg/dL (74-106)
[2024-02-02 06:43] LABS: Absolute Lymphocyte Count 3.57 X10^3/uL (0.83-4.51); Absolute Neutrophil Count 6.1 X10^3/uL (2.0-7.7); Basophil# 0.23 X10^3/uL; Basophil% 1.9 % (0-1); Eosinophil# 0.37 X10^3/uL; Eosinophils% 3.1 % (0-5); Hematocrit 49.6 % (40-54); Hemoglobin 16.8 g/dL (13.0-16.5); Lymphocyte # 3.57 X10^3/ul (0.83-4.51); Mean Corp Hgb Conc 33.9 g/dL (32-36); Mean Corpuscular Hgb 31.6 pg (27.0-32.0); Mean Corpuscular Volume 93.2 fL (80-94); Monocyte# 1.11 X10^3/uL; Monocyte% 9.3 % (0-10); NRBC Flagged by Analyzer 0 % (0-5); Neutrophil # 6.06 X10^3/uL (2.7-7.7); Neutrophil % 51.1 % (47-70); Platelet Count 243 K/mm3 (150-450); RBC Distribution Width CV 12.1 % (11.6-14.6); RBC Distribution Width SD 41.7 fl (35.1-43.9); Red Blood Count 5.32 M/mm3 (4.6-6.2); White Blood Count 11.9 K/mm3 (4.4-11.0)
[2024-02-02 07:18] LABS: Anion Gap 8 (5-15); BUN 24 mg/dL (7-18); Calcium,Total 9.3 mg/dL (8.5-10.1); Chloride 104 mmol/L (98-107); Creatinine, Serum 0.78 mg/dL (0.70-1.30); EST Glomerular Filtration Rate 112 mL/min (>60); Est Glom Filt Rate - Afr Amer 136 mL/min (>60); Estimated Creatinine Clearance 89.13 ml/min; Glucose 171 mg/dL (74-106); Potassium 4.3 mmol/L (3.5-5.1); Sodium Level 136 mmol/L (136-145)
[2024-02-02] MEDS: Glucerna Shake 120 ML LIQUID PO ×4 (08:32→22:00)
[2024-02-02] MEDS: Gabapentin 300 MG Capsule PO ×3 (08:33→16:56)
[2024-02-02] MEDS: Pantoprazole Sodium 40 MG Tablet PO (08:33)
[2024-02-02] MEDS: DULoxetine Hcl 20 MG Capsule 40 MG PO (08:33)
[2024-02-02] MEDS: ARIPiprazole 5 MG Tablet PO (08:33)
[2024-02-02] MEDS: Celecoxib 200 MG Capsule PO ×2 (08:36→21:50)
[2024-02-02] MEDS: Lisinopril 20 MG Tablet PO (08:36)
[2024-02-02 08:40] VITALS: BP 141/73; PULSE 73; RESP 18; TEMP 37.1; O2SAT 98
--- NOTE | 2024-02-02 10:27 | CASEMGMT ---
Social Work- SW updated pt on referral to [facility] to assist with medicaid application. FERDA also spoke with Chloe, onsite case manager DENISE, who reports that there are stairs in the shelter and pt will be unable to be placed in shelter at this time d/t inability to navigate stairs and have full mobility. SW relayed this to pt, who is still agreeable to SNF placement at d/c. SW advised pt that the process will be lengthy d/t TBI and mental health diagnosis; pt is understanding of this and reports that he is thankful to be at the hospital where he can be getting help with his pain. SW will keep pt update on pending status of referrals. GEMINI Hong
--- NOTE | 2024-02-02 11:15 | PN.HOSP_ITS ---
Reason for Visit Reason for Visit: Intractable Pain Subjective Subjective Patient states that he is having some left-sided hip pain today and asks if we ever done a CT there. I informed him we did not however he is known to need an hip replacement on that side and he has seen orthopedic surgery before so I did tell him I am going to refer him to outpatient orthopedic surgery after we get him discharged and have them order the test that they need to have to evaluate further for potential surgical intervention. He voiced understanding. He stated he did not have much change with the gabapentin as of yet but understands that the dose may need to take some time and that we can reassess tomorrow. Still wants to avoid opiates is much as possible due to his previous addiction issues with narcotics. Objective Data Objective Data Vital Signs: Vital Signs Temp Pulse Resp BP Pulse Ox O2 Del Method 98.7 F 73 18 141/73 H 98 Room Air 02/02/24 08:40 02/02/24 08:40 02/02/24 08:40 02/02/24 08:40 02/02/24 08:40 02/02/24 10:21 Oxygen Delivery Method Room Air Weight: 56.654 kg Body Mass Index (BMI) 20.0 Intake & Output: Intake and Output for Last 24 Hours 01/31/24 02/01/24 02/02/24 23:59 23:59 23:59 Intake Total 750 / 750 1979 / 1979 300 / 300 Output Total 1100 / 1550 2150 / 2150 Balance -350 / -800 -170 / -170 300 / 300 Medical Nutrition Assessment Dietitian: Malnutrition Criteria Met Start: 01/29/24 11:20 Freq: Status: Active Protocol: Document 02/01/24 11:54 DAKSHA (Rec: 02/01/24 11:55 DAKSHA [id number]) Nutrition Malnutrition Evidence of Malnutrition Exists Yes Malnutrition (moderate): Chronic Evidenced By Weight Loss (Moderate), Physical Changes (Moderate) Clinical Problem Chronic Disease or Condition Related Malnutrition Etiology related to physiological changes impacting oral intakes Signs/Symptoms as evidenced by significant weight loss of 7.5% in 3 months based upon 10/29/23 weight of 133lb and physical evidence of moderate muscle and fat wasting (temples, clavicles, deltoids, buccal, etc). Status Active Problem Recommendation Dietitian Recommendations/Changes Continue with Consistent Carb - Calorie Controlled diet ( 1800kcal) with Glucerna 120mL 4x/day with medpass to help increase oral intakes and prevent further weight loss. Will assess intakes and tolerance of ONS upon f/u and modify interventions as needed . Lab / Micro Data 02/02/24 05:18 02/02/24 05:18 Labs: Laboratory Results - last 24 hr 02/01/24 11:06: POC Glucose 263 H 02/01/24 16:39: POC Glucose 249 H 02/01/24 23:00: POC Glucose 305 H 02/02/24 05:08: POC Glucose 168 H 02/02/24 05:18: WBC 11.9 H, RBC 5.32, Hgb 16.8 H, Hct 49.6, MCV 93.2, MCH 31.6, MCHC 33.9, RDW Std Deviation 41.7, RDW Coeff of Joe 12.1, Plt Count 243, MPV 11.0, Immature Gran % (Auto) 4.600 H, Neut % (Auto) 51.1, Lymph % (Auto) 30.0, [place] % (Auto) 9.3, Eos % (Auto) 3.1, Baso % (Auto) 1.9 H, Absolute Neuts (auto) 6.1, Absolute Lymphs (auto) 3.57, Nucleated RBC % 0, Sodium 136, Potassium 4.3, Chloride 104, Carbon Dioxide 24.0, Anion Gap 8, BUN 24 H, Creatinine 0.78, Estim Creat Clear Calc 89.13, Est GFR (MDRD) Af Amer 136, Est GFR (MDRD) Non-Af 112, B UN/Creatinine Ratio 31.0 H, Glucose 171 H, Calcium 9.3 Physical Exam Const alert, oriented x3, no apparent distress and average body habitus; Negative for healthy appearing or well nourished Constitutional Narrative: Thin, middle-aged, white male, housing case manager is at the bedside, currently appears comfortable, nontoxic HEENT normocephalic, head/scalp atraumatic and moist oral mucous membranes HEENT Narrative: Mallampati 2, no thrush Resp normal respiratory effort, no retractions, no use of accessory muscles and clear to auscultation bilaterally Auscultation: Negative for rales, rhonchi or wheezes Cardio regular rate, regular rhythm, S1 normal heart sound, S2 normal heart sound, no murmurs, no rub, no gallops and no clicks GI normal to inspection, nondistended, normoactive bowel sounds, soft to palpation and non-tender Extremity no clubbing, cyanosis or edema Extremity Narrative: Pedal pulses are 2+ Neuro oriented x3, moves all extremities and no focal motor deficits Speech: speech normal Psych affect normal Psych Narrative: Very pleasant, interacts appropriately Assessment & Plan Assessment/Plan (1) Chronic hip pain: (2) Chronic back pain: (3) Adult failure to thrive: PLAN: Plan Multifocal chronic pain -Continue Tylenol to scheduled 1 g 3 times daily -Continue Cymbalta at 60 mg daily -Continue gabapentin 300 mg 3 times daily -Will consider up titration to 500 mg tomorrow depending on effectiveness of change in the next 24 hours -Continue lidocaine patches -Continue Celebrex 200 mg p.o. twice daily -Continue Protonix for 40 mg daily for GI protection with long tears and NSAID use -Outpatient orthopedic follow-up after discharge -Continue PT/OT -May need pain management referral at discharge as well depending on orthopedic surgery input after discharge -Will need placement for discharge and will need acceptance and then pre-CERT Chronic moderate malnutrition -Dietitian is following -Evidenced by significant weight loss of 7.5% in the last 3 months with previous weight of 133 pounds -Continue carb controlled diet -Glucerna supplements 4 times daily -Continue to monitor Hypothyroidism -Continue home Synthroid History of hypertension/hyperlipidemia -Patient is not on any chronic therapy for this prior to admission -Continue lisinopril but increase dose to 20 mg daily from 10 mg -BP has been persistently elevated with goal being less than 130/80 -Outpatient follow-up for hyperlipidemia History of GERD -Continue PPI with scheduled NSAID utilization -As needed Mylanta is available DM-2 -Restart home metformin increased to 500 mg p.o. BID -A1c was 7.7 Depression/schizophrenia/bipolar -Continue home regimen with increase in Cymbalta for pain from 40 to 60 mg daily DVT prophylaxis -Continue Lovenox CODE STATUS Full code Charges/Coding Visit Charges Inpatient E&M: 63305 Subs Hosp L2
[2024-02-02 12:17] LABS: Bedside Glucose 256 mg/dL (74-106)
--- NOTE | 2024-02-02 14:50 | CASEMGMT ---
Social Work- SW received pending medicaid number from Jaqui: [id number] GEMINI Hong
[2024-02-02 16:30] VITALS: BP 131/72; PULSE 86; RESP 18; TEMP 37; O2SAT 98
--- NOTE | 2024-02-02 16:46 | CASEMGMT ---
Social Work- FREDA completed PASSR, as [facility] accepted pt. FREDA updated pt. GEMINI Hong
[2024-02-02] MEDS: metFORMIN HCl 500 MG Tablet PO (16:51)
[2024-02-02 17:28] LABS: Bedside Glucose 178 mg/dL (74-106)
[2024-02-02 21:43] VITALS: BP 102/68; PULSE 67; RESP 15; TEMP 36.4; O2SAT 99
[2024-02-02 22:00] VITALS: RESP 15
[2024-02-02 22:38] LABS: Bedside Glucose 301 mg/dL (74-106)
[2024-02-03 05:00] VITALS: BP 126/58; PULSE 68; RESP 15; TEMP 36.8; O2SAT 98
[2024-02-03] MEDS: tiZANidine HCl 2 MG Tablet 4 MG PO ×3 (05:21→22:14)
[2024-02-03] MEDS: Levothyroxine 100 MCG Tablet PO (05:22)
[2024-02-03] MEDS: Acetaminophen 500 MG Tablet 1000 MG PO ×3 (05:22→22:14)
[2024-02-03] MEDS: Senna/Docusate Sodium 1 Tablet 2 TABLET PO ×2 (05:25→09:54)
[2024-02-03 06:00] VITALS: RESP 15
[2024-02-03 09:15] VITALS: BP 138/60; PULSE 84; RESP 18; TEMP 36.4; O2SAT 98
[2024-02-03] MEDS: Gabapentin 300 MG Capsule PO ×3 (09:54→16:56)
[2024-02-03] MEDS: Lisinopril 20 MG Tablet PO (09:54)
[2024-02-03] MEDS: metFORMIN HCl 500 MG Tablet PO ×2 (09:54→16:54)
[2024-02-03] MEDS: Celecoxib 200 MG Capsule PO ×2 (09:54→22:14)
[2024-02-03] MEDS: Pantoprazole Sodium 40 MG Tablet PO (09:55)
[2024-02-03] MEDS: ARIPiprazole 5 MG Tablet PO (09:55)
[2024-02-03] MEDS: DULoxetine Hcl 20 MG Capsule 40 MG PO (09:55)
[2024-02-03] MEDS: Lidocaine 5% Patch 3 PATCH TOPICAL (11:35)
[2024-02-03] MEDS: Insulin Lispro 100 UNIT/ML INSULN.PEN SC ×3 (11:35→22:14)
[2024-02-03 11:44] LABS: Bedside Glucose 236 mg/dL (74-106)
[2024-02-03 14:33] VITALS: BP 134/80; PULSE 93; RESP 18; TEMP 37.1; O2SAT 98
--- NOTE | 2024-02-03 16:13 | CASEMGMT ---
Discharge Planning [facility] updated that patient has chosen another snf. Promise Brown DC Planning Asst.
--- NOTE | 2024-02-03 16:34 | PCM.PN.HOSP ---
Reason for Visit Reason for Visit: Intractable multifocal pain Subjective Subjective Mobility seems to be improving some however patient still complaining of significant pain predominantly in his left hip. Has noted some improvement with increase in gabapentin. Indicates that he has a court date on the and if he does not, he will have a warrant out for his arrest. I did notify social work and they were already aware and will help with this. Objective Data Objective Data Vital Signs: Vital Signs Temp Pulse Resp BP Pulse Ox O2 Del Method 98.8 F 93 18 134/80 H 98 Room Air 02/03/24 14:33 02/03/24 14:33 02/03/24 14:33 02/03/24 14:33 02/03/24 14:33 02/03/24 14:33 Oxygen Delivery Method Room Air Weight: 56.654 kg Body Mass Index (BMI) 20.0 Intake & Output: Intake and Output for Last 24 Hours 02/01/24 02/02/24 02/03/24 23:59 23:59 23:59 Intake Total 1979 / 1979 2350 / 2750 1080 / 1080 Output Total 2150 / 2150 1650 / 1650 575 / 575 Balance -170 / -170 700 / 1100 505 / 505 Medical Nutrition Assessment Dietitian: Malnutrition Criteria Met Start: 01/29/24 11:20 Freq: Status: Active Protocol: Document 02/01/24 11:54 DAKSHA (Rec: 02/01/24 11:55 SLA [id number]) Nutrition Malnutrition Evidence of Malnutrition Exists Yes Malnutrition (moderate): Chronic Evidenced By Weight Loss (Moderate), Physical Changes (Moderate) Clinical Problem Chronic Disease or Condition Related Malnutrition Etiology related to physiological changes impacting oral intakes Signs/Symptoms as evidenced by significant weight loss of 7.5% in 3 months based upon 10/29/23 weight of 133lb and physical evidence of moderate muscle and fat wasting (temples, clavicles, deltoids, buccal, etc). Status Active Problem Recommendation Dietitian Recommendations/Changes Continue with Consistent Carb - Calorie Controlled diet ( 1800kcal) with Glucerna 120mL 4x/day with medpass to help increase oral intakes and prevent further weight loss. Will assess intakes and tolerance of ONS upon f/u and modify interventions as needed . Lab / Micro Data 02/02/24 05:18 02/02/24 05:18 Labs: Laboratory Results - last 24 hr 02/02/24 16:45: POC Glucose 178 H 02/02/24 21:58: POC Glucose 301 H 02/03/24 11:26: POC Glucose 236 H Physical Exam Const alert, oriented x3, no apparent distress and average body habitus; Negative for healthy appearing or well nourished Constitutional Narrative: Thin, middle-aged, white male, sitting up in bed watching television, currently appears comfortable, nontoxic HEENT normocephalic and head/scalp atraumatic Neuro Speech: speech normal Psych affect normal Psych Narrative: Very pleasant, interacts appropriately Assessment & Plan Assessment/Plan (1) Chronic hip pain: (2) Chronic back pain: (3) Adult failure to thrive: PLAN: Plan Multifocal chronic pain -Continue Tylenol to scheduled 1 g 3 times daily -Continue Cymbalta at 60 mg daily -Continue gabapentin 300 mg 3 times daily -Continue lidocaine patches -Continue Celebrex 200 mg p.o. twice daily -Continue Protonix for 40 mg daily for GI protection with long tears and NSAID use -Outpatient orthopedic follow-up after discharge -Continue PT/OT -May need pain management referral at discharge as well depending on orthopedic surgery input after discharge -Will need placement for discharge and will need acceptance and then pre-CERT Chronic moderate malnutrition -Dietitian is following -Evidenced by significant weight loss of 7.5% in the last 3 months with previous weight of 133 pounds -Continue carb controlled diet -Glucerna supplements 4 times daily -Continue to monitor Hypothyroidism -Continue home Synthroid History of hypertension/hyperlipidemia -Patient is not on any chronic therapy for this prior to admission -Continue lisinopril but increase dose to 20 mg daily from 10 mg -BP has been persistently elevated with goal being less than 130/80 -Outpatient follow-up for hyperlipidemia History of GERD -Continue PPI with scheduled NSAID utilization -As needed Mylanta is available DM-2 -Restart home metformin increased to 500 mg p.o. BID -A1c was 7.7 Depression/schizophrenia/bipolar -Continue home regimen with increase in Cymbalta for pain from 40 to 60 mg daily DVT prophylaxis -Continue Lovenox CODE STATUS Full code Disposition: -Patient has been medically ready for discharge since 02/01/2024 but currently awaiting acceptance and pre-CERT. Charges/Coding Visit Charges Inpatient E&M: 63959 Subs Hosp L1
[2024-02-03 16:47] LABS: Bedside Glucose 272 mg/dL (74-106)
[2024-02-03 20:12] VITALS: BP 130/70; PULSE 66; RESP 18; TEMP 36.8; O2SAT 96
[2024-02-03] MEDS: Glucerna Shake 120 ML LIQUID PO (22:13)
[2024-02-03 22:38] LABS: Bedside Glucose 377 mg/dL (74-106)
[2024-02-04] MEDS: MELATONIN 3 MG TABLET 6 MG PO (01:17)
[2024-02-04] MEDS: tiZANidine HCl 2 MG Tablet 4 MG PO ×3 (05:52→20:48)
[2024-02-04] MEDS: Levothyroxine 100 MCG Tablet PO (05:52)
[2024-02-04] MEDS: Acetaminophen 500 MG Tablet 1000 MG PO ×3 (05:52→20:48)
[2024-02-04 05:57] VITALS: BP 107/74; PULSE 50; RESP 18; TEMP 36.4; O2SAT 99
[2024-02-04] MEDS: Insulin Lispro 100 UNIT/ML INSULN.PEN SC ×4 (06:03→20:50)
[2024-02-04 06:44] LABS: Bedside Glucose 242 mg/dL (74-106)
[2024-02-04 07:25] LABS: Hematocrit 49.6 % (40-54); Hemoglobin 16.8 g/dL (13.0-16.5); Mean Corp Hgb Conc 33.9 g/dL (32-36); Mean Corpuscular Hgb 31.8 pg (27.0-32.0); Mean Corpuscular Volume 93.9 fL (80-94); Platelet Count 261 K/mm3 (150-450); RBC Distribution Width SD 42.2 fl (35.1-43.9); Red Blood Count 5.28 M/mm3 (4.6-6.2); White Blood Count 12.3 K/mm3 (4.4-11.0)
[2024-02-04 08:05] LABS: Anion Gap 6 (5-15); BUN 35 mg/dL (7-18); BUN/Creat Ratio 36.5 RATIO (10-20); Calcium,Total 9.7 mg/dL (8.5-10.1); Chloride 101 mmol/L (98-107); Creatinine, Serum 0.96 mg/dL (0.70-1.30); EST Glomerular Filtration Rate 88 mL/min (>60); Est Glom Filt Rate - Afr Amer 106 mL/min (>60); Estimated Creatinine Clearance 72.75 ml/min; Glucose 234 mg/dL (74-106); Potassium 4.5 mmol/L (3.5-5.1); Sodium Level 133 mmol/L (136-145)
[2024-02-04 08:29] VITALS: BP 124/68; PULSE 67; RESP 18; TEMP 36.7; O2SAT 99
[2024-02-04] MEDS: Celecoxib 200 MG Capsule PO ×2 (08:44→20:50)
[2024-02-04] MEDS: Lidocaine 5% Patch 3 PATCH TOPICAL (08:45)
[2024-02-04] MEDS: Lisinopril 20 MG Tablet PO (08:47)
[2024-02-04] MEDS: Pantoprazole Sodium 40 MG Tablet PO (08:47)
[2024-02-04] MEDS: DULoxetine Hcl 20 MG Capsule 40 MG PO (08:48)
[2024-02-04] MEDS: ARIPiprazole 5 MG Tablet PO (08:48)
[2024-02-04] MEDS: metFORMIN HCl 500 MG Tablet PO ×2 (08:49→16:57)
[2024-02-04] MEDS: Gabapentin 300 MG Capsule PO ×3 (09:41→16:59)
[2024-02-04 11:59] LABS: Bedside Glucose 304 mg/dL (74-106)
[2024-02-04 12:27] LABS: Bacteria 0 SEEN /hpf (None Seen); Mucous, Urine 0 SEEN /hpf (<or=2+); Red Blood Cells-Urine 0 SEEN /hpf (0-5); White Blood Cells 0 SEEN /hpf (0-5)
[2024-02-04 12:41] LABS: Color, Urine Yellow (Yellow); Glucose, Dipstick 1000 mg/dl (Normal); Ketone-Dipstick Negative (Negative); Leukocyte Esterase-Dipstick Negative /ul (Negative); Nitrite-Dipstick Negative (Negative); Occult Blood-Urine Negative /ul (Negative); Protein-Dipstick Negative (Negative); Urine Bilirubin Dipstick Negative (Negative); Urine Clarity Clear (Clear); Urine Urobilinogen Normal (Normal)
[2024-02-04 12:53] LABS: Squamous Epithelial Cells - UA 0-5 SEEN /hpf (0-5)
--- NOTE | 2024-02-04 13:58 | NURSING ---
Called placed to pharmacy re Insulin Glargine not available on floor. Spoke to Kya, she will send one up.
[2024-02-04 14:00] VITALS: BP 116/66; PULSE 87; RESP 18; TEMP 36.6; O2SAT 99
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
[2024-02-04] MEDS: Insulin Glargine-YFGN 100 UNIT/ML Pen 10 UNIT SC (14:38)
--- NOTE | 2024-02-04 14:39 | CASEMGMT ---
Addendum entered by Margaret Ortiz 02/04/24 15:51: Chloe states that the group homes are not licensed for any DME including canes or walkers. Chloe will reschedule meeting with pt and jewelry engraver to discuss placement, but pt would have to be fully mobile w/o DME prior to admittance. FREDA will continue to provide updates. GEMINI Hong Addendum entered by Margaret Ortiz 02/04/24 14:49: FREDA called Stephanie Madden, Director of Case Management/Residential Services and left a voicemail to discuiss parameters of placement in skilled nursing and potential to still place pt in skilled nursing d/t his improved physical abilities. GEMINI Hong Original Note: Social Work- FREDA called Chloe Green and left a voicemail in regards to pt status. FREDA also sent an email to follow up. GEMINI Hong
--- NOTE | 2024-02-04 15:44 | CASEMGMT ---
Addendum entered by Margaret Ortiz 02/04/24 16:07: Updates provided to [facility] for review. GEMINI Hong Original Note: Social Work- SW checked status of PASSR; still reflecting that referral submitted, has not begun review. FREDA called [facility] to discuss placement; [place] [facility] states that she needs therapy updates, proof of pt being on a patch, and being okay with not smoking at facility. Patti states after PASSR is received, they will review. [facility] states they are still 'interested' ,but the accelerator systems director will need to approve. FREDA to send updates. FREDA verified with pt that he is okay with not smoking, pt is in agreement. GEMINI Hong
[2024-02-04 17:21] LABS: Bedside Glucose 222 mg/dL (74-106)
[2024-02-04 20:34] VITALS: BP 134/68; PULSE 66; RESP 18; TEMP 36.7; O2SAT 98
[2024-02-04] MEDS: Glucerna Shake 120 ML LIQUID PO (20:46)
[2024-02-04] MEDS: Zolpidem Tartrate 5 MG Tablet PO (20:47)
[2024-02-04 21:13] LABS: Bedside Glucose 265 mg/dL (74-106)
[2024-02-05 02:16] VITALS: BP 118/69; PULSE 66; RESP 18; TEMP 36.4; O2SAT 99
[2024-02-05] MEDS: Levothyroxine 100 MCG Tablet PO (05:09)
[2024-02-05] MEDS: tiZANidine HCl 2 MG Tablet 4 MG PO ×3 (05:09→23:16)
[2024-02-05] MEDS: Acetaminophen 500 MG Tablet 1000 MG PO ×3 (05:09→23:16)
[2024-02-05 05:27] VITALS: BMI 20.6
[2024-02-05] MEDS: Insulin Lispro 100 UNIT/ML INSULN.PEN SC ×4 (06:41→23:16)
[2024-02-05 07:01] LABS: Bedside Glucose 327 mg/dL (74-106)
--- NOTE | 2024-02-05 09:00 | CASEMGMT ---
Social Work- FREDA spoke with Stacey miles [facility] who states she will come assess pt today. FREDA spoke with Chloe [facility] piano case and bench assembler, who states that she spoke with [employer] who states that they can expedite the process to next week, however, pt cannot require a walker or cane d/t licensing of the group homes. FREDA and Chloe will keep in contact to collaborate and coordinate on plan of care for pt. GEMINI Hong
[2024-02-05 09:26] VITALS: BP 129/63; PULSE 67; RESP 18; TEMP 36.6; O2SAT 98
[2024-02-05] MEDS: Gabapentin 100 MG Capsule 500 MG PO ×3 (09:28→18:33)
[2024-02-05] MEDS: Lisinopril 20 MG Tablet PO (09:29)
[2024-02-05] MEDS: metFORMIN HCl 500 MG Tablet PO ×2 (09:29→16:34)
[2024-02-05] MEDS: ARIPiprazole 5 MG Tablet PO (09:29)
[2024-02-05] MEDS: DULoxetine Hcl 20 MG Capsule 40 MG PO (09:29)
[2024-02-05] MEDS: Lidocaine 5% Patch 3 PATCH TOPICAL (09:30)
[2024-02-05] MEDS: Pantoprazole Sodium 40 MG Tablet PO (09:30)
[2024-02-05] MEDS: Insulin Glargine-YFGN 100 UNIT/ML Pen 20 UNIT SC (09:31)
[2024-02-05] MEDS: Celecoxib 200 MG Capsule PO ×2 (09:32→23:16)
[2024-02-05] MEDS: Glucerna Shake 120 ML LIQUID PO ×4 (09:34→23:15)
--- NOTE | 2024-02-05 10:50 | CASEMGMT ---
Social Work- SW met with pt to discuss visit with Stacey gray and the conversation with Chloe, pillowcase folder. SW updated pt that we are pursuing both options for placement and the process needed for each type of placement. SW discussed the letter for court and provided reassurance that we will assist him with that. The letter needs to be sent by 02/10 to Antonio Horton public health director at [email or web address] with a phone contact of [phone]. Pt acknowledged that he has been doing well in hospital and has been eating well. Pt states that he is ambulating intermittently to help relieve pain in his spine from laying in bed. Pt states he is uncertain if he will be able to ambulate without a walker or cane to be placed in a fpc. PT states that he is agreeable to SNF placement and not smoking. Pt states that he has wanted to quit and is hopeful that he can quit now that he is on the patch and has not been smoking for duration of hospital stay. GEMINI Hong
[2024-02-05 11:58] LABS: Bedside Glucose 267 mg/dL (74-106)
--- NOTE | 2024-02-05 13:58 | PCM.PN.HOSP ---
Reason for Visit Reason for Visit: Intractable multifocal pain Subjective Subjective No significant issues overnight. He states he got his gabapentin the increased dose seems to be helping. Still did not sleep well last night however was able to fall asleep better with the Ambien. No acute change. Objective Data Objective Data Vital Signs: Vital Signs Temp Pulse Resp BP Pulse Ox O2 Del Method 97.9 F 67 18 129/63 H 98 Room Air 02/05/24 09:26 02/05/24 09:26 02/05/24 09:26 02/05/24 09:26 02/05/24 09:26 02/05/24 09:26 Oxygen Delivery Method Room Air Weight: 58.3 kg Body Mass Index (BMI) 20.6 Intake & Output: Intake and Output for Last 24 Hours 02/03/24 02/04/24 02/05/24 23:59 23:59 23:59 Intake Total 1080 / 1080 1000 / 1000 Output Total 575 / 575 1000 / 1000 Balance 505 / 505 0 / 0 Medical Nutrition Assessment Dietitian: Malnutrition Criteria Met Start: 01/29/24 11:20 Freq: Status: Active Protocol: Document 02/01/24 11:54 DAKSHA (Rec: 02/01/24 11:55 SLA [id number]) Nutrition Malnutrition Evidence of Malnutrition Exists Yes Malnutrition (moderate): Chronic Evidenced By Weight Loss (Moderate), Physical Changes (Moderate) Clinical Problem Chronic Disease or Condition Related Malnutrition Etiology related to physiological changes impacting oral intakes Signs/Symptoms as evidenced by significant weight loss of 7.5% in 3 months based upon 10/29/23 weight of 133lb and physical evidence of moderate muscle and fat wasting (temples, clavicles, deltoids, buccal, etc). Status Active Problem Recommendation Dietitian Recommendations/Changes Continue with Consistent Carb - Calorie Controlled diet ( 1800kcal) with Glucerna 120mL 4x/day with medpass to help increase oral intakes and prevent further weight loss. Will assess intakes and tolerance of ONS upon f/u and modify interventions as needed . Lab / Micro Data 02/04/24 06:18 02/04/24 06:18 Labs: Laboratory Results - last 24 hr 02/04/24 16:53: POC Glucose 222 H 02/04/24 20:46: POC Glucose 265 H 02/05/24 06:37: POC Glucose 327 H 02/05/24 11:40: POC Glucose 267 H Physical Exam Const alert, oriented x3, no apparent distress and average body habitus; Negative for healthy appearing or well nourished Constitutional Narrative: Thin, middle-aged, white male, standing in his room ambulating with his walker, does not appear uncomfortable, nontoxic HEENT normocephalic, head/scalp atraumatic and moist oral mucous membranes Head and Scalp: normocephalic Neck General: trachea midline Resp normal respiratory effort, no retractions, no use of accessory muscles and clear to auscultation bilaterally Auscultation: Negative for rales, rhonchi or wheezes Cardio regular rate, regular rhythm, S1 normal heart sound, S2 normal heart sound, no murmurs, no rub, no gallops and no clicks GI normal to inspection, nondistended, normoactive bowel sounds, soft to palpation and non-tender Extremity no clubbing, cyanosis or edema Extremity Narrative: Pedal pulses are 2+ Neuro oriented x3, moves all extremities and no focal motor deficits Speech: speech normal Psych affect normal Psych Narrative: Very pleasant, interacts appropriately Assessment & Plan Assessment/Plan (1) Chronic hip pain: (2) Chronic back pain: (3) Adult failure to thrive: PLAN: Plan Multifocal chronic pain -Continue Tylenol to scheduled 1 g 3 times daily -Continue Cymbalta at 60 mg daily -Continue increased dose of gabapentin at 500 mg 3 times daily -Continue lidocaine patches -Continue Celebrex 200 mg p.o. twice daily -Continue Protonix for 40 mg daily for GI protection with long tears and NSAID use -Outpatient orthopedic follow-up after discharge -Continue PT/OT -May need pain management referral at discharge as well depending on orthopedic surgery input after discharge -Will need placement for discharge and will need acceptance and then pre-CERT Chronic moderate malnutrition -Dietitian is following -Evidenced by significant weight loss of 7.5% in the last 3 months with previous weight of 133 pounds -Continue carb controlled diet -Glucerna supplements 4 times daily -Continue to monitor Hypothyroidism -Continue home Synthroid History of hypertension/hyperlipidemia -Patient is not on any chronic therapy for this prior to admission -Continue lisinopril 20 mg -Blood pressures have been at goal range for the most part since the increased dose -Outpatient follow-up for hyperlipidemia History of GERD -Continue PPI with scheduled NSAID utilization -As needed Mylanta is available DM-2 -Continue metformin twice daily -Patient on liberalize diet as he will be as an outpatient -Lantus added 10 units yesterday will increase to 20 units and continue to monitor -Fasting blood sugar was greater than 200 -A1c was 7.7 Depression/schizophrenia/bipolar -Continue increased dose of Cymbalta at 60 mg daily DVT prophylaxis -Continue Lovenox CODE STATUS Full code Disposition: -Patient has been medically ready for discharge since 02/01/2024 but currently awaiting acceptance and pre-CERT. Charges/Coding Visit Charges Inpatient E&M: 78765 Subs Hosp L2
[2024-02-05 15:01] VITALS: BP 116/58; PULSE 81; RESP 16; TEMP 36.6; O2SAT 97
[2024-02-05 16:52] LABS: Bedside Glucose 288 mg/dL (74-106)
[2024-02-05 22:00] VITALS: BP 120/60; PULSE 80; RESP 16; TEMP 36.7; O2SAT 97
[2024-02-05] MEDS: Zolpidem Tartrate 5 MG Tablet PO (23:16)
[2024-02-05 23:36] LABS: Bedside Glucose 290 mg/dL (74-106)
[2024-02-06 04:00] VITALS: BP 132/68; PULSE 53; RESP 16; TEMP 36.8; O2SAT 98
[2024-02-06] MEDS: tiZANidine HCl 2 MG Tablet 4 MG PO ×3 (05:33→21:31)
[2024-02-06] MEDS: Acetaminophen 500 MG Tablet 1000 MG PO ×3 (05:33→21:31)
[2024-02-06] MEDS: Levothyroxine 100 MCG Tablet PO (05:34)
[2024-02-06] MEDS: Insulin Lispro 100 UNIT/ML INSULN.PEN SC ×4 (06:42→21:32)
[2024-02-06 07:05] LABS: Bedside Glucose 274 mg/dL (74-106)
[2024-02-06 07:37] LABS: Hemoglobin 14.5 g/dL (13.0-16.5); Mean Corp Hgb Conc 33.7 g/dL (32-36); Mean Corpuscular Hgb 31.7 pg (27.0-32.0); Mean Corpuscular Volume 93.9 fL (80-94); Platelet Count 226 K/mm3 (150-450); RBC Distribution Width SD 41.4 fl (35.1-43.9); Red Blood Count 4.58 M/mm3 (4.6-6.2); White Blood Count 11.8 K/mm3 (4.4-11.0)
[2024-02-06 07:51] LABS: Anion Gap 5 (5-15); BUN 35 mg/dL (7-18); BUN/Creat Ratio 34.7 RATIO (10-20); Calcium,Total 9.4 mg/dL (8.5-10.1); Chloride 103 mmol/L (98-107); Creatinine, Serum 1.01 mg/dL (0.70-1.30); EST Glomerular Filtration Rate 83 mL/min (>60); Est Glom Filt Rate - Afr Amer 100 mL/min (>60); Estimated Creatinine Clearance 71.35 ml/min; Glucose 270 mg/dL (74-106); Potassium 4.8 mmol/L (3.5-5.1); Sodium Level 134 mmol/L (136-145)
[2024-02-06 10:00] VITALS: BP 129/66; PULSE 72; RESP 18; TEMP 36.8; O2SAT 100
[2024-02-06] MEDS: Gabapentin 100 MG Capsule 500 MG PO ×3 (10:19→17:59)
[2024-02-06] MEDS: Pantoprazole Sodium 40 MG Tablet PO (10:19)
[2024-02-06] MEDS: Lidocaine 5% Patch 3 PATCH TOPICAL (10:20)
[2024-02-06] MEDS: metFORMIN HCl 500 MG Tablet PO ×2 (10:20→16:31)
[2024-02-06] MEDS: DULoxetine Hcl 20 MG Capsule 40 MG PO (10:26)
[2024-02-06] MEDS: Lisinopril 20 MG Tablet PO (10:27)
[2024-02-06] MEDS: Celecoxib 200 MG Capsule PO ×2 (10:27→21:32)
[2024-02-06] MEDS: Insulin Glargine-YFGN 100 UNIT/ML Pen 30 UNIT SC (10:30)
[2024-02-06] MEDS: Glucerna Shake 120 ML LIQUID PO ×4 (10:37→21:33)
--- NOTE | 2024-02-06 12:05 | PCM.PN.HOSP ---
Reason for Visit Reason for Visit: Multifocal intractable pain Subjective Subjective Patient states his pain is the best it has been since he has been here and is very gracious for the assistance. States his sleeping is still not great so we did discuss increasing his Ambien to 10 mg at night. He does not indicate that the gabapentin is making him tired at all. We did discuss that his blood sugars are elevated because he is on an unrestricted diet which she is preferring and eats at home so we will go ahead and treat him accordingly with insulin and he is agreeable with this. Objective Data Objective Data Vital Signs: Vital Signs Temp Pulse Resp BP Pulse Ox O2 Del Method 98.3 F 72 18 129/66 H 100 Room Air 02/06/24 10:00 02/06/24 10:00 02/06/24 10:00 02/06/24 10:00 02/06/24 10:00 02/06/24 10:00 Oxygen Delivery Method Room Air Weight: 58.3 kg Body Mass Index (BMI) 20.6 Intake & Output: Intake and Output for Last 24 Hours 02/04/24 02/05/24 02/06/24 23:59 23:59 23:59 Intake Total 1800 / 1800 Output Total 1000 / 1000 Balance 800 / 800 Medical Nutrition Assessment Dietitian: Malnutrition Criteria Met Start: 01/29/24 11:20 Freq: Status: Active Protocol: Document 02/05/24 14:08 DAKSHA (Rec: 02/05/24 14:08 DAKSHA [id number]) Nutrition Malnutrition Evidence of Malnutrition Exists Yes Malnutrition (moderate): Chronic Evidenced By Weight Loss (Moderate), Physical Changes (Moderate) Clinical Problem Chronic Disease or Condition Related Malnutrition Etiology related to physiological changes impacting oral intakes Signs/Symptoms as evidenced by significant weight loss of 7.5% in 3 months based upon 10/29/23 weight of 133lb and physical evidence of moderate muscle and fat wasting (temples, clavicles, deltoids, buccal, etc). Status Active Problem Recommendation Dietitian Recommendations/Changes Continue with Consistent Carb - Calorie Controlled diet ( 2000kcal) with Glucerna 120mL 4x/day with medpass to help increase oral intakes and prevent further weight loss. Lab / Micro Data 02/06/24 06:48 02/06/24 06:48 Labs: Laboratory Results - last 24 hr 02/05/24 16:28: POC Glucose 288 H 02/05/24 23:12: POC Glucose 290 H 02/06/24 06:40: POC Glucose 274 H 02/06/24 06:48: WBC 11.8 H, RBC 4.58 L, Hgb 14.5, Hct 43.0, MCV 93.9, MCH 31.7, MCHC 33.7, RDW Std Deviation 41.4, RDW Coeff of Joe 12.0, Plt Count 226, MPV 11.0, Sodium 134 L, Potassium 4.8, Chloride 103, Carbon Dioxide 26.0, Anion Gap 5, BUN 35 H, Creatinine 1.01, Estim Creat Clear Calc 71.35, Est GFR (MDRD) Af Amer 100, Est GFR (MDRD) Non-Af 83, BUN/Creatinine Ratio 34.7 H, Glucose 270 H, Calcium 9.4 Physical Exam Const alert, oriented x3, no apparent distress and average body habitus; Negative for healthy appearing or well nourished Constitutional Narrative: Thin, middle-aged, white male, sitting up in a chair at the bedside, does not appear uncomfortable, nontoxic, nursing at bedside HEENT normocephalic, head/scalp atraumatic and moist oral mucous membranes HEENT Narrative: Dentition is poor, Mallampati is 2, no thrush Resp normal respiratory effort, no retractions, no use of accessory muscles and clear to auscultation bilaterally Auscultation: Negative for rales, rhonchi or wheezes Cardio regular rate, regular rhythm, S1 normal heart sound, S2 normal heart sound, no murmurs, no rub, no gallops and no clicks GI normal to inspection, nondistended, normoactive bowel sounds, soft to palpation and non-tender Extremity no clubbing, cyanosis or edema Extremity Narrative: Pedal pulses are 2+ Neuro oriented x3, moves all extremities and no focal motor deficits Speech: speech normal Psych affect normal Psych Narrative: Very pleasant, interacts appropriately Assessment & Plan Assessment/Plan (1) Chronic hip pain: (2) Chronic back pain: (3) Adult failure to thrive: PLAN: Plan Multifocal chronic pain -Continue Tylenol to scheduled 1 g 3 times daily -Continue Cymbalta at 60 mg daily -Continue gabapentin 500 3times daily -Continue lidocaine patches -Continue Celebrex 200 mg p.o. twice daily -Continue Protonix for 40 mg daily for GI protection with longer term NSAID use -Outpatient orthopedic follow-up after discharge -Continue PT/OT -May need pain management referral at discharge as well depending on orthopedic surgery input after discharge -Will need placement for discharge and will need acceptance and then pre-CERT Chronic moderate malnutrition -Dietitian is following -Evidenced by significant weight loss of 7.5% in the last 3 months with previous weight of 133 pounds -[place] diet was initiated because patient eats regular diet at home -Glucerna supplements 4 times daily -Continue to monitor Hypothyroidism -Continue home Synthroid History of hypertension/hyperlipidemia -Patient is not on any chronic therapy for this prior to admission -Continue lisinopril 20 mg -Blood pressures remain in goal range since change -Outpatient follow-up for hyperlipidemia History of GERD -Continue PPI with scheduled NSAID utilization -As needed Mylanta is available DM-2 -Continue metformin twice daily -Patient on liberalize diet as he will be as an outpatient -Increase Lantus to 30 units as a.m. blood sugar was 270 -A1c was 7.7 Depression/schizophrenia/bipolar -Continue increased dose of Cymbalta at 60 mg daily DVT prophylaxis -Continue Lovenox CODE STATUS Full code Disposition: -Patient has been medically ready for discharge since 02/01/2024 but currently awaiting acceptance and pre-CERT. Charges/Coding Visit Charges Inpatient E&M: 71638 Subs Hosp L2
[2024-02-06 14:33] LABS: Bedside Glucose 313 mg/dL (74-106)
[2024-02-06 16:00] VITALS: BP 112/68; PULSE 71; RESP 17; TEMP 36.8; O2SAT 96
[2024-02-06 19:11] LABS: Bedside Glucose 178 mg/dL (74-106)
[2024-02-06 19:56] VITALS: BP 129/78; PULSE 71; RESP 18; TEMP 37.1; O2SAT 100
[2024-02-06] MEDS: Atorvastatin Calcium 40 MG Tablet PO (21:31)
[2024-02-06] MEDS: Zolpidem Tartrate 5 MG Tablet 10 MG PO (21:33)
[2024-02-06 23:07] LABS: Bedside Glucose 252 mg/dL (74-106)
[2024-02-07 03:53] VITALS: BP 133/54; PULSE 83; RESP 16; TEMP 36.4; O2SAT 98
[2024-02-07 06:00] VITALS: BMI 19.5
[2024-02-07] MEDS: Insulin Lispro 100 UNIT/ML INSULN.PEN SC ×4 (06:28→22:00)
[2024-02-07] MEDS: Levothyroxine 100 MCG Tablet PO (06:29)
[2024-02-07] MEDS: tiZANidine HCl 2 MG Tablet 4 MG PO ×3 (06:29→22:03)
[2024-02-07] MEDS: Acetaminophen 500 MG Tablet 1000 MG PO ×3 (06:29→22:02)
[2024-02-07 07:14] LABS: Bedside Glucose 245 mg/dL (74-106)
[2024-02-07] MEDS: Gabapentin 100 MG Capsule 500 MG PO ×3 (08:52→16:54)
[2024-02-07] MEDS: Glucerna Shake 120 ML LIQUID PO ×4 (08:52→21:58)
[2024-02-07] MEDS: metFORMIN HCl 500 MG Tablet PO ×2 (08:53→16:53)
[2024-02-07] MEDS: DULoxetine Hcl 20 MG Capsule 40 MG PO (08:54)
[2024-02-07] MEDS: Lisinopril 20 MG Tablet PO (08:55)
[2024-02-07] MEDS: ARIPiprazole 5 MG Tablet PO (08:55)
[2024-02-07] MEDS: Celecoxib 200 MG Capsule PO ×2 (08:55→22:02)
[2024-02-07] MEDS: Pantoprazole Sodium 40 MG Tablet PO (08:56)
[2024-02-07] MEDS: Insulin Glargine-YFGN 100 UNIT/ML Pen 25 UNIT SC ×2 (08:57→21:59)
[2024-02-07 09:00] VITALS: BP 118/61; PULSE 66; RESP 16; TEMP 36.8; O2SAT 100
[2024-02-07 11:53] LABS: Bedside Glucose 347 mg/dL (74-106)
--- NOTE | 2024-02-07 12:25 | PCM.PN.HOSP ---
Reason for Visit Reason for Visit: Intractable multifocal pain Subjective Subjective Patient states he still not sleeping any better however his pain is much better controlled and they have progressed him from a walker to a cane with ambulation. No complaints. Objective Data Objective Data Vital Signs: Vital Signs Temp Pulse Resp BP Pulse Ox O2 Del Method 98.2 F 66 16 118/61 100 Room Air 02/07/24 09:00 02/07/24 09:00 02/07/24 09:00 02/07/24 09:00 02/07/24 09:00 02/07/24 09:00 Oxygen Delivery Method Room Air Weight: 55.2 kg Body Mass Index (BMI) 19.5 Intake & Output: Intake and Output for Last 24 Hours 02/05/24 02/06/24 02/07/24 23:59 23:59 23:59 Intake Total 1800 / 1800 Output Total 1000 / 1000 Balance 800 / 800 Medical Nutrition Assessment Dietitian: Malnutrition Criteria Met Start: 01/29/24 11:20 Freq: Status: Active Protocol: Document 02/05/24 14:08 DAKSHA (Rec: 02/05/24 14:08 [facility] [id number]) Nutrition Malnutrition Evidence of Malnutrition Exists Yes Malnutrition (moderate): Chronic Evidenced By Weight Loss (Moderate), Physical Changes (Moderate) Clinical Problem Chronic Disease or Condition Related Malnutrition Etiology related to physiological changes impacting oral intakes Signs/Symptoms as evidenced by significant weight loss of 7.5% in 3 months based upon 10/29/23 weight of 133lb and physical evidence of moderate muscle and fat wasting (temples, clavicles, deltoids, buccal, etc). Status Active Problem Recommendation Dietitian Recommendations/Changes Continue with Consistent Carb - Calorie Controlled diet ( 2000kcal) with Glucerna 120mL 4x/day with medpass to help increase oral intakes and prevent further weight loss. Lab / Micro Data 02/06/24 06:48 02/06/24 06:48 Labs: Laboratory Results - last 24 hr 02/06/24 12:11: POC Glucose 313 H 02/06/24 16:27: POC Glucose 178 H 02/06/24 21:30: POC Glucose 252 H 02/07/24 06:27: POC Glucose 245 H 02/07/24 11:31: POC Glucose 347 H Physical Exam Const alert, oriented x3, no apparent distress and average body habitus; Negative for healthy appearing or well nourished Constitutional Narrative: Thin, middle-aged, white male, sitting up on the edge of the bed with a cane at the bedside, nursing at the bedside, appears comfortable, nontoxic Resp normal respiratory effort, no retractions, no use of accessory muscles and clear to auscultation bilaterally Auscultation: Negative for rales, rhonchi or wheezes Cardio regular rate, regular rhythm, S1 normal heart sound, S2 normal heart sound, no murmurs, no rub, no gallops and no clicks GI normal to inspection, nondistended, normoactive bowel sounds, soft to palpation and non-tender Extremity no clubbing, cyanosis or edema Extremity Narrative: Pedal pulses are 2+ Neuro oriented x3, moves all extremities and no focal motor deficits Speech: speech normal Psych affect normal Psych Narrative: Very pleasant, interacts appropriately Assessment & Plan Assessment/Plan (1) Chronic hip pain: (2) Chronic back pain: (3) Adult failure to thrive: PLAN: Plan Multifocal chronic pain -Continue Tylenol to scheduled 1 g 3 times daily -Continue Cymbalta at 60 mg daily -Continue gabapentin 500 3times daily -Continue lidocaine patches -Continue Celebrex 200 mg p.o. twice daily -Continue Protonix for 40 mg daily for GI protection with longer term NSAID use -Outpatient orthopedic follow-up after discharge -Continue PT/OT -May need pain management referral at discharge as well depending on orthopedic surgery input after discharge -Will need placement for discharge and will need acceptance and then pre-CERT Chronic moderate malnutrition -Dietitian is following -Evidenced by significant weight loss of 7.5% in the last 3 months with previous weight of 133 pounds -[place] diet was initiated because patient eats regular diet at home -Glucerna supplements 4 times daily -Continue to monitor Hypothyroidism -Continue home Synthroid History of hypertension/hyperlipidemia -Patient is not on any chronic therapy for this prior to admission -Continue lisinopril 20 mg -Blood pressures remain in goal range since change -Outpatient follow-up for hyperlipidemia History of GERD -Continue PPI with scheduled NSAID utilization -As needed Mylanta is available DM-2 -Continue metformin twice daily -Patient on liberalize diet as he will be as an outpatient -Fasting blood sugars remain elevated and today was still greater than 200 -Increase Lantus to 25 units twice daily -Continue SSI -A1c was 7.7--> patient states his p.o. intake was extremely poor at home but he does not follow a specialized diet at home for diabetes Depression/schizophrenia/bipolar -Continue increased dose of Cymbalta at 60 mg daily DVT prophylaxis -Continue Lovenox CODE STATUS Full code Disposition: -Patient has been medically ready for discharge since 02/01/2024 but currently awaiting acceptance and pre-CERT. Charges/Coding Visit Charges Inpatient E&M: 39595 Subs Hosp L2
[2024-02-07 15:00] VITALS: BP 131/68; PULSE 80; RESP 19; TEMP 37.1; O2SAT 96
[2024-02-07 17:25] LABS: Bedside Glucose 356 mg/dL (74-106)
[2024-02-07 19:33] VITALS: BP 148/65; PULSE 60; RESP 19; TEMP 36.5; O2SAT 99
[2024-02-07] MEDS: Atorvastatin Calcium 40 MG Tablet PO (22:05)
[2024-02-07] MEDS: Zolpidem Tartrate 5 MG Tablet 10 MG PO (22:05)
[2024-02-07 22:28] LABS: Bedside Glucose 189 mg/dL (74-106)
[2024-02-08 02:00] VITALS: BP 125/66; PULSE 67; RESP 18; TEMP 36.6; O2SAT 99
[2024-02-08] MEDS: Acetaminophen 500 MG Tablet 1000 MG PO ×3 (05:55→20:54)
[2024-02-08] MEDS: tiZANidine HCl 2 MG Tablet 4 MG PO ×3 (05:56→20:55)
[2024-02-08] MEDS: Levothyroxine 100 MCG Tablet PO (05:57)
[2024-02-08] MEDS: Insulin Lispro 100 UNIT/ML INSULN.PEN SC ×4 (05:57→20:55)
[2024-02-08 06:00] VITALS: BMI 19.9
[2024-02-08 06:10] LABS: Bedside Glucose 373 mg/dL (74-106)
[2024-02-08] MEDS: Celecoxib 200 MG Capsule PO ×2 (08:42→20:54)
[2024-02-08] MEDS: Gabapentin 100 MG Capsule 500 MG PO ×3 (08:42→19:53)
[2024-02-08] MEDS: metFORMIN HCl 500 MG Tablet PO (08:42)
[2024-02-08] MEDS: ARIPiprazole 5 MG Tablet PO (08:43)
[2024-02-08] MEDS: DULoxetine Hcl 60 MG Capsule PO (08:43)
[2024-02-08] MEDS: Pantoprazole Sodium 40 MG Tablet PO (08:44)
[2024-02-08] MEDS: Lidocaine 5% Patch 3 PATCH TOPICAL (08:44)
[2024-02-08] MEDS: Glucerna Shake 120 ML LIQUID PO ×4 (08:44→20:54)
[2024-02-08] MEDS: Insulin Glargine-YFGN 100 UNIT/ML Pen 35 UNIT SC (08:45)
[2024-02-08] MEDS: Lisinopril 20 MG Tablet PO (08:45)
[2024-02-08 08:57] VITALS: BP 139/64; PULSE 72; RESP 16; TEMP 36.6; O2SAT 97
--- NOTE | 2024-02-08 10:41 | PN.HOSP_ITS ---
Reason for Visit Reason for Visit: Intractable multifocal pain Subjective Subjective Patient states his Pain continues to be well-controlled. Still not sleeping well despite the Ambien. Blood sugars are up with the patient does indicate using a lot better than he typically does and since he is not smoking he is eating a lot more. Objective Data Objective Data Vital Signs: Vital Signs Temp Pulse Resp BP Pulse Ox O2 Del Method 97.9 F 72 16 139/64 H 97 Room Air 02/08/24 08:57 02/08/24 08:57 02/08/24 08:57 02/08/24 08:57 02/08/24 08:57 02/08/24 08:57 Oxygen Delivery Method Room Air Weight: 56.2 kg Body Mass Index (BMI) 19.9 Medical Nutrition Assessment Dietitian: Malnutrition Criteria Met Start: 01/29/24 11:20 Freq: Status: Active Protocol: Document 02/05/24 14:08 DAKSHA (Rec: 02/05/24 14:[address] [facility] 1606-2-10) Nutrition Malnutrition Evidence of Malnutrition Exists Yes Malnutrition (moderate): Chronic Evidenced By Weight Loss (Moderate), Physical Changes (Moderate) Clinical Problem Chronic Disease or Condition Related Malnutrition Etiology related to physiological changes impacting oral intakes Signs/Symptoms as evidenced by significant weight loss of 7.5% in 3 months based upon 10/29/23 weight of 133lb and physical evidence of moderate muscle and fat wasting (temples, clavicles, deltoids, buccal, etc). Status Active Problem Recommendation Dietitian Recommendations/Changes Continue with Consistent Carb - Calorie Controlled diet ( 2000kcal) with Glucerna 120mL 4x/day with medpass to help increase oral intakes and prevent further weight loss. Lab / Micro Data 02/06/24 06:48 02/06/24 06:48 Labs: Laboratory Results - last 24 hr 02/07/24 11:31: POC Glucose 347 H 02/07/24 16:52: POC Glucose 356 H 02/07/24 21:57: POC Glucose 189 H 02/08/24 05:51: POC Glucose 373 H Physical Exam Const alert, oriented x3, no apparent distress and average body habitus; Negative for healthy appearing or well nourished Constitutional Narrative: Thin, middle-aged, white male, sitting up on the edge of the bed eating breakfast, appears comfortable, nontoxic HEENT normocephalic, head/scalp atraumatic and moist oral mucous membranes HEENT Narrative: Dentition is poor, Mallampati is 2, no thrush Resp normal respiratory effort, no retractions, no use of accessory muscles and clear to auscultation bilaterally Auscultation: Negative for rales, rhonchi or wheezes Cardio regular rate, regular rhythm, S1 normal heart sound, S2 normal heart sound, no murmurs, no rub, no gallops and no clicks GI normal to inspection, nondistended, normoactive bowel sounds, soft to palpation and non-tender Extremity no clubbing, cyanosis or edema Extremity Narrative: Pedal pulses are 2+ Neuro oriented x3, moves all extremities and no focal motor deficits Speech: speech normal Psych affect normal Psych Narrative: Very pleasant, interacts appropriately Assessment & Plan Assessment/Plan (1) Chronic hip pain: (2) Chronic back pain: (3) Adult failure to thrive: PLAN: Plan Multifocal chronic pain -Pain on current regimen is very well-controlled per patient -Continue Tylenol to scheduled 1 g 3 times daily -Continue Cymbalta at 60 mg daily -Continue gabapentin 500 3 times daily -Continue lidocaine patches -Continue Celebrex 200 mg p.o. twice daily -Continue Protonix for 40 mg daily for GI protection with longer term NSAID use -Outpatient orthopedic follow-up after discharge-->Dr. Santiago -Will also refer to Dr. Lowery for pain mgt -Continue PT/OT Chronic moderate malnutrition -Dietitian is following -Evidenced by significant weight loss of 7.5% in the last 3 months with previous weight of 133 pounds -[place] diet was initiated because patient eats regular diet at home -Glucerna supplements 4 times daily -Continue to monitor Hypothyroidism -Continue home Synthroid History of hypertension/hyperlipidemia -Continue lisinopril 20 mg -Blood pressures remain in goal range since change -Start atorvastatin 40 mg daily History of GERD -Continue PPI with scheduled NSAID utilization -As needed Mylanta is available DM-2 -Continue metformin twice daily but increase to BID -Patient on liberalize diet as he will be as an outpatient -Fasting sugars remain elevated -Increase Lantus to 35 units twice daily -Continue SSI -A1c was 7.7--> patient states his p.o. intake was extremely poor at home but he does not follow a specialized diet at home for diabetes Depression/schizophrenia/bipolar -Continue increased dose of Cymbalta at 60 mg daily DVT prophylaxis -Continue Lovenox CODE STATUS Full code Disposition: -Patient has been medically ready for discharge since 02/01/2024 but currently awaiting acceptance and pre-CERT. Charges/Coding Visit Charges Inpatient E&M: 77234 Subs Hosp L2
[2024-02-08] MEDS: Insulin Lispro 100 UNIT/ML INSULN.PEN 10 UNIT SC ×2 (11:51→16:41)
[2024-02-08 12:10] LABS: Bedside Glucose 204 mg/dL (74-106)
[2024-02-08 14:58] VITALS: BP 138/74; PULSE 100; RESP 16; TEMP 36.6; O2SAT 99
[2024-02-08] MEDS: metFORMIN HCl 1,000 MG Tablet 1000 MG PO (16:40)
[2024-02-08 17:06] LABS: Bedside Glucose 179 mg/dL (74-106)
[2024-02-08 20:44] VITALS: BP 132/67; PULSE 77; RESP 18; TEMP 36.4; O2SAT 97
[2024-02-08] MEDS: Atorvastatin Calcium 40 MG Tablet PO (20:54)
[2024-02-08] MEDS: MELATONIN 10 MG TABLET PO (20:57)
[2024-02-08 22:42] LABS: Bedside Glucose 167 mg/dL (74-106)
[2024-02-09 02:22] VITALS: BP 106/57; PULSE 65; RESP 16; TEMP 36.1; O2SAT 95
[2024-02-09] MEDS: tiZANidine HCl 2 MG Tablet 4 MG PO ×3 (04:56→21:27)
[2024-02-09] MEDS: Acetaminophen 500 MG Tablet 1000 MG PO ×3 (04:56→21:27)
[2024-02-09] MEDS: Levothyroxine 100 MCG Tablet PO (04:56)
[2024-02-09 06:00] VITALS: BMI 20.4
[2024-02-09 07:03] LABS: Hematocrit 44.3 % (40-54); Hemoglobin 14.8 g/dL (13.0-16.5); Mean Corp Hgb Conc 33.4 g/dL (32-36); Mean Corpuscular Hgb 31.9 pg (27.0-32.0); Mean Corpuscular Volume 95.5 fL (80-94); Mean Platelet Vol. 11.4 fl (6.2-12.0); Platelet Count 243 K/mm3 (150-450); RBC Distribution Width CV 12.2 % (11.6-14.6); Red Blood Count 4.64 M/mm3 (4.6-6.2); White Blood Count 13.2 K/mm3 (4.4-11.0)
[2024-02-09 07:25] LABS: Anion Gap 6 (5-15); BUN 38 mg/dL (7-18); BUN/Creat Ratio 36.9 RATIO (10-20); Calcium,Total 9.7 mg/dL (8.5-10.1); Chloride 106 mmol/L (98-107); Creatinine, Serum 1.03 mg/dL (0.70-1.30); EST Glomerular Filtration Rate 81 mL/min (>60); Est Glom Filt Rate - Afr Amer 98 mL/min (>60); Estimated Creatinine Clearance 69.25 ml/min; Glucose 211 mg/dL (74-106); Potassium 4.9 mmol/L (3.5-5.1); Sodium Level 138 mmol/L (136-145)
[2024-02-09 07:39] LABS: Bedside Glucose 206 mg/dL (74-106)
[2024-02-09 08:00] VITALS: BP 134/82; PULSE 58; RESP 16; TEMP 36.5; O2SAT 100
[2024-02-09] MEDS: Insulin Lispro 100 UNIT/ML INSULN.PEN SC ×4 (08:01→21:28)
[2024-02-09] MEDS: Insulin Lispro 100 UNIT/ML INSULN.PEN 10 UNIT SC ×3 (08:01→16:35)
[2024-02-09] MEDS: metFORMIN HCl 1,000 MG Tablet 1000 MG PO ×2 (08:03→16:35)
[2024-02-09] MEDS: Gabapentin 100 MG Capsule 500 MG PO ×3 (08:03→16:39)
[2024-02-09] MEDS: DULoxetine Hcl 60 MG Capsule PO (08:04)
[2024-02-09] MEDS: ARIPiprazole 5 MG Tablet PO (08:04)
[2024-02-09] MEDS: Celecoxib 200 MG Capsule PO ×2 (08:04→21:27)
[2024-02-09] MEDS: Pantoprazole Sodium 40 MG Tablet PO (08:05)
[2024-02-09] MEDS: Lidocaine 5% Patch 3 PATCH TOPICAL (08:05)
[2024-02-09] MEDS: Lisinopril 20 MG Tablet PO (08:05)
--- NOTE | 2024-02-09 09:41 | CASEMGMT ---
Discharge Planing Updates sent to [place] via [facility]. Referral remains pending. Promise Brown DC Planning Asst.
--- NOTE | 2024-02-09 10:05 | CASEMGMT ---
Social Work- FREDA followed up with [facility] case management associate, Chloe Green, who reports that they are in process of securing a new bed for the room at the nursing home. Chloe states that pt can move in as soon as the room is ready as long as pt does not use a cane or wheeled walker. FREDA will continue to update on PT progress. FREDA asked [facility] to follow up with [facility] on status of approval. FREDA faxed a letter to public school teacher, Antonio Horton, stating pt status in hospital per pt request d/t pt having a court case on 02/10. GEMINI Hong
[2024-02-09] MEDS: Glucerna Shake 120 ML LIQUID PO ×4 (10:08→21:32)
[2024-02-09] MEDS: Insulin Glargine-YFGN 100 UNIT/ML Pen 40 UNIT SC (10:27)
[2024-02-09 14:43] VITALS: BP 142/83; PULSE 82; RESP 16; TEMP 36.7; O2SAT 96
--- NOTE | 2024-02-09 14:49 | CASEMGMT ---
Discharge Planning [facility] has reversed its decision and declined patient. SW updated. Promise Brown DC Planning Asst.
--- NOTE | 2024-02-09 14:54 | CASEMGMT ---
Social Work- SW met with pt to discuss a worker's comp claim that [facility] asked about when questioning acceptance. 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 SW passe this information along to d/c orthodontic technician assistant, who was in communication with [facility]. GEMINI Hong
--- NOTE | 2024-02-09 15:08 | PN.HOSP_ITS ---
Reason for Visit Reason for Visit: Multifocal intractable pain Subjective Subjective Patient states that he still not sleeping well however this sounds like it has been a chronic issue for him and nothing acute. Does not seem related to pain at this time. Patient indicates pain is fairly well-controlled at this time and states he is the best it has been a long time. Is ambulating intermittently in the room without a cane but in the halls he is still using his cane. Refused to take his insulin last night as he was afraid that his blood sugars were drop because they were only 200. We did discuss with him that 200 is still too high and will adjust his insulin slightly. Objective Data Objective Data Vital Signs: Vital Signs Temp Pulse Resp BP Pulse Ox O2 Del Method 98.1 F 82 16 142/83 H 96 Room Air 02/09/24 14:43 02/09/24 14:43 02/09/24 14:43 02/09/24 14:43 02/09/24 14:43 02/09/24 14:43 Oxygen Delivery Method Room Air Weight: 57.7 kg Body Mass Index (BMI) 20.4 Medical Nutrition Assessment Dietitian: Malnutrition Criteria Met Start: 01/29/24 11:20 Freq: Status: Active Protocol: Document 02/05/24 14:08 DAKSHA (Rec: 02/05/24 14:08 [facility] [id number]) Nutrition Malnutrition Evidence of Malnutrition Exists Yes Malnutrition (moderate): Chronic Evidenced By Weight Loss (Moderate), Physical Changes (Moderate) Clinical Problem Chronic Disease or Condition Related Malnutrition Etiology related to physiological changes impacting oral intakes Signs/Symptoms as evidenced by significant weight loss of 7.5% in 3 months based upon 10/29/23 weight of 133lb and physical evidence of moderate muscle and fat wasting (temples, clavicles, deltoids, buccal, etc). Status Active Problem Recommendation Dietitian Recommendations/Changes Continue with Consistent Carb - Calorie Controlled diet ( 2000kcal) with Glucerna 120mL 4x/day with medpass to help increase oral intakes and prevent further weight loss. Lab / Micro Data 02/09/24 06:13 02/09/24 06:13 Labs: Laboratory Results - last 24 hr 02/08/24 16:39: POC Glucose 179 H 02/08/24 20:50: POC Glucose 167 H 02/09/24 06:13: WBC 13.2 H, RBC 4.64, Hgb 14.8, Hct 44.3, MCV 95.5 H, MCH 31.9, MCHC 33.4, RDW Std Deviation 43.0, RDW Coeff of Joe 12.2, Plt Count 243, MPV 11.4, Sodium 138, Potassium 4.9, Chloride 106, Carbon Dioxide 26.0, Anion Gap 6, BUN 38 H, Creatinine 1.03, Estim Creat Clear Calc 69.25, Est GFR (MDRD) Af Amer 98, Est GFR (MDRD) Non-Af 81, BUN/Creatinine Ratio 36.9 H, Glucose 211 H, Calcium 9.7 02/09/24 06:36: POC Glucose 206 H Physical Exam Const alert, oriented x3, no apparent distress and average body habitus; Negative for healthy appearing or well nourished Constitutional Narrative: Thin, middle-aged, white male, walking around the room independently from his cane, appears comfortable, nontoxic HEENT normocephalic, head/scalp atraumatic and moist oral mucous membranes HEENT Narrative: Dentition is poor, Mallampati is 2, no thrush Resp normal respiratory effort, no retractions, no use of accessory muscles and clear to auscultation bilaterally Auscultation: Negative for rales, rhonchi or wheezes Cardio regular rate, regular rhythm, S1 normal heart sound, S2 normal heart sound, no murmurs, no rub, no gallops and no clicks GI normal to inspection, nondistended, normoactive bowel sounds, soft to palpation and non-tender Extremity no clubbing, cyanosis or edema Extremity Narrative: Pedal pulses are 2+ Neuro oriented x3, moves all extremities and no focal motor deficits Speech: speech normal Psych affect normal Psych Narrative: Very pleasant, interacts appropriately Assessment & Plan Assessment/Plan (1) Chronic hip pain: (2) Chronic back pain: (3) Adult failure to thrive: PLAN: Plan Multifocal chronic pain -Pain on current regimen remains very well-controlled per patient -Continue Tylenol to scheduled 1 g 3 times daily -Continue Cymbalta at 60 mg daily -Continue gabapentin 500 3 times daily -Continue lidocaine patches -Continue Celebrex 200 mg p.o. twice daily -Continue Protonix for 40 mg daily for GI protection with longer term NSAID use -Outpatient orthopedic follow-up after discharge-->Dr. Santiago -Will also refer to Dr. Lowery for pain mgt -Continue PT/OT Chronic moderate malnutrition -Dietitian is following -Evidenced by significant weight loss of 7.5% in the last 3 months with previous weight of 133 pounds -[place] diet was initiated because patient eats regular diet at home -Glucerna supplements 4 times daily -Continue to monitor Hypothyroidism -Continue home Synthroid History of hypertension/hyperlipidemia -Continue lisinopril 20 mg -Blood pressures remain in goal range since change -Continue atorvastatin 40 mg History of GERD -Continue PPI with scheduled NSAID utilization -As needed Mylanta is available DM-2 -Continue metformin twice daily -Patient on liberalize diet as he will be as an outpatient -Fasting sugars remain elevated -Continue Lantus but will utilize 30 units twice daily due to patient's concerns -Continue SSI -A1c was 7.7--> patient states his p.o. intake was extremely poor at home but he does not follow a specialized diet at home for diabetes Depression/schizophrenia/bipolar -Continue increased dose of Cymbalta at 60 mg daily DVT prophylaxis -Continue Lovenox CODE STATUS Full code Disposition: -Patient has been medically ready for discharge since 02/01/2024 but currently awaiting acceptance and pre-CERT.
[2024-02-09 16:33] LABS: Bedside Glucose 287 mg/dL (74-106)
[2024-02-09 16:59] LABS: Bedside Glucose 189 mg/dL (74-106)
[2024-02-09 21:23] VITALS: BP 133/63; PULSE 78; RESP 18; TEMP 36.1; O2SAT 97
[2024-02-09] MEDS: MELATONIN 10 MG TABLET PO (21:27)
[2024-02-09] MEDS: Atorvastatin Calcium 40 MG Tablet PO (21:27)
[2024-02-09] MEDS: Insulin Glargine-YFGN 100 UNIT/ML Pen 25 UNIT SC (21:29)
[2024-02-09 23:00] LABS: Bedside Glucose 151 mg/dL (74-106)
[2024-02-10 05:26] VITALS: BP 136/62; PULSE 83; RESP 18; TEMP 36.6; O2SAT 99
[2024-02-10] MEDS: Acetaminophen 500 MG Tablet 1000 MG PO ×3 (05:28→20:56)
[2024-02-10] MEDS: Levothyroxine 100 MCG Tablet PO (05:28)
[2024-02-10] MEDS: tiZANidine HCl 2 MG Tablet 4 MG PO ×3 (05:28→20:56)
[2024-02-10 06:00] VITALS: BMI 20.5
[2024-02-10 06:51] LABS: Bedside Glucose 170 mg/dL (74-106)
[2024-02-10 08:47] VITALS: BP 121/69; PULSE 67; RESP 18; TEMP 36.2; O2SAT 99
[2024-02-10] MEDS: Pantoprazole Sodium 40 MG Tablet PO (08:58)
[2024-02-10] MEDS: Celecoxib 200 MG Capsule PO ×2 (08:58→20:55)
[2024-02-10] MEDS: Lisinopril 20 MG Tablet PO (08:58)
[2024-02-10] MEDS: DULoxetine Hcl 60 MG Capsule PO (08:58)
[2024-02-10] MEDS: metFORMIN HCl 1,000 MG Tablet 1000 MG PO ×2 (08:58→16:54)
[2024-02-10] MEDS: Insulin Lispro 100 UNIT/ML INSULN.PEN SC ×2 (08:59→21:02)
[2024-02-10] MEDS: Insulin Lispro 100 UNIT/ML INSULN.PEN 10 UNIT SC ×3 (09:00→16:54)
[2024-02-10] MEDS: Glucerna Shake 120 ML LIQUID PO ×4 (09:07→21:42)
[2024-02-10] MEDS: Lidocaine 5% Patch 3 PATCH TOPICAL (09:08)
[2024-02-10] MEDS: Insulin Glargine-YFGN 100 UNIT/ML Pen 25 UNIT SC ×2 (09:08→21:40)
[2024-02-10] MEDS: Gabapentin 100 MG Capsule 500 MG PO ×3 (09:15→16:57)
--- NOTE | 2024-02-10 10:32 | PCM.PN.HOSP ---
Reason for Visit Reason for Visit: Multifocal intractable pain Subjective Subjective Patient states he had a good night. Still not sleeping great but pain is very well-controlled. He is very appreciative of the care he has gotten here. Happy with his blood sugar this morning at 170. Objective Data Objective Data Vital Signs: Vital Signs Temp Pulse Resp BP Pulse Ox O2 Del Method 97.1 F L 67 18 121/69 H 99 Room Air 02/10/24 08:47 02/10/24 08:47 02/10/24 08:47 02/10/24 08:47 02/10/24 08:47 02/10/24 08:47 Oxygen Delivery Method Room Air Weight: 58 kg Body Mass Index (BMI) 20.5 Medical Nutrition Assessment Dietitian: Malnutrition Criteria Met Start: 01/29/24 11:20 Freq: Status: Active Protocol: Document 02/05/24 14:08 DAKSHA (Rec: 02/05/24 14:08 [facility]AK[facility] [id number]) Nutrition Malnutrition Evidence of Malnutrition Exists Yes Malnutrition (moderate): Chronic Evidenced By Weight Loss (Moderate), Physical Changes (Moderate) Clinical Problem Chronic Disease or Condition Related Malnutrition Etiology related to physiological changes impacting oral intakes Signs/Symptoms as evidenced by significant weight loss of 7.5% in 3 months based upon 10/29/23 weight of 133lb and physical evidence of moderate muscle and fat wasting (temples, clavicles, deltoids, buccal, etc). Status Active Problem Recommendation Dietitian Recommendations/Changes Continue with Consistent Carb - Calorie Controlled diet ( 2000kcal) with Glucerna 120mL 4x/day with medpass to help increase oral intakes and prevent further weight loss. Lab / Micro Data 02/09/24 06:13 02/09/24 06:13 Labs: Laboratory Results - last 24 hr 02/09/24 11:45: POC Glucose 287 H 02/09/24 16:34: POC Glucose 189 H 02/09/24 21:25: POC Glucose 151 H 02/10/24 06:22: POC Glucose 170 H Physical Exam Const alert, oriented x3, no apparent distress and average body habitus; Negative for healthy appearing or well nourished Constitutional Narrative: Thin, middle-aged, white male, walking around the room independently from his cane, appears comfortable, nontoxic HEENT normocephalic, head/scalp atraumatic and moist oral mucous membranes HEENT Narrative: Dentition is poor, Mallampati is 2 Resp normal respiratory effort, no retractions, no use of accessory muscles and clear to auscultation bilaterally Auscultation: Negative for rales, rhonchi or wheezes Cardio regular rate, regular rhythm, S1 normal heart sound, S2 normal heart sound, no murmurs, no rub, no gallops and no clicks GI normal to inspection, nondistended, normoactive bowel sounds, soft to palpation and non-tender Extremity no clubbing, cyanosis or edema Extremity Narrative: Pedal pulses are 2+ Neuro oriented x3, moves all extremities and no focal motor deficits Speech: speech normal Psych affect normal Psych Narrative: Very pleasant, interacts appropriately Assessment & Plan Assessment/Plan (1) Chronic hip pain: (2) Chronic back pain: (3) Adult failure to thrive: PLAN: Plan Multifocal chronic pain -Pain on current regimen remains very well-controlled per patient -Continue Tylenol to scheduled 1 g 3 times daily -Continue Cymbalta at 60 mg daily -Continue gabapentin 500 3 times daily -Continue lidocaine patches -Continue Celebrex 200 mg p.o. twice daily -Continue Protonix for 40 mg daily for GI protection with longer term NSAID use -Outpatient orthopedic follow-up after discharge-->Dr. Linton -Appointment was set up for him today for next week -Will also refer to Dr. Lowery for pain mgt -Appointment was set up for him today for next week -Continue PT/OT Chronic moderate malnutrition -Dietitian is following -Evidenced by significant weight loss of 7.5% in the last 3 months with previous weight of 133 pounds -[place] diet was initiated because patient eats regular diet at home -Glucerna supplements 4 times daily -Continue to monitor Hypothyroidism -Continue home Synthroid History of hypertension/hyperlipidemia -Continue lisinopril 20 mg -Overall good blood pressure control while hospitalized on this dose -Continue atorvastatin 40 mg -Will need follow-up lipids and liver function in 3 months History of GERD -Continue PPI with scheduled NSAID utilization -As needed Mylanta is available DM-2 -Continue metformin twice daily -Patient on liberalize diet as he will be as an outpatient -Fasting sugars remain elevated -Continue Lantus 20 units twice daily -Continue scheduled insulin 10 units 3 times daily -Continue SSI -A1c was 7.7--> patient states his p.o. intake was extremely poor at home but he does not follow a specialized diet at home for diabetes -Will make referral to endocrinology at discharge Depression/schizophrenia/bipolar -Continue increased dose of Cymbalta at 60 mg daily DVT prophylaxis -Continue Lovenox CODE STATUS Full code Disposition: -Patient has been medically ready for discharge since 02/01/2024 plan has now changed to probable discharge to [facility] as he is physically doing much better and now appropriate for the setting. Awaiting fpc to be ready and my anticipation is that he will be able to go tomorrow 02/11/2024. Charges/Coding Visit Charges Inpatient E&M: 27342 Subs Hosp L2
--- NOTE | 2024-02-10 10:41 | CASEMGMT ---
Social Work- SW met with pt and Catina Hou of DD, who met to conduct assessment for level of care. PT signed release of information and gave verbal consent to release records to assist in assessment. Recent records were released to Db. GEMINI Hong
[2024-02-10 12:00] LABS: Bedside Glucose 130 mg/dL (74-106)
--- NOTE | 2024-02-10 12:40 | CASEMGMT ---
Social Work- SW called LUCAS Carball[facility], and left voicemail following up on an email to confirm tentative date for long term availability. GEMINI Hong
[2024-02-10 15:01] VITALS: BP 138/75; PULSE 86; RESP 18; TEMP 36.4; O2SAT 99
[2024-02-10] MEDS: ARIPiprazole 5 MG Tablet PO (15:07)
--- NOTE | 2024-02-10 16:19 | CASEMGMT ---
Social Work- SW left a voicemail for [facility] services supervisor mending. GEMINI Morocho
[2024-02-10 20:52] VITALS: BP 146/75; PULSE 76; RESP 18; TEMP 36.5; O2SAT 97
[2024-02-10] MEDS: Atorvastatin Calcium 40 MG Tablet PO (20:55)
[2024-02-10] MEDS: MELATONIN 10 MG TABLET PO (20:56)
[2024-02-10 23:14] LABS: Bedside Glucose 167 mg/dL (74-106)
[2024-02-10 23:28] VITALS: BP 132/62; PULSE 71; RESP 18; TEMP 36.7; O2SAT 98
[2024-02-11 04:18] VITALS: BP 141/69; PULSE 75; RESP 18; TEMP 36.2; O2SAT 99
[2024-02-11] MEDS: Acetaminophen 500 MG Tablet 1000 MG PO ×3 (04:19→21:15)
[2024-02-11] MEDS: tiZANidine HCl 2 MG Tablet 4 MG PO ×3 (04:20→21:14)
[2024-02-11] MEDS: Levothyroxine 100 MCG Tablet PO (04:22)
[2024-02-11 04:52] VITALS: BMI 20.6
[2024-02-11] MEDS: Lisinopril 20 MG Tablet PO (07:35)
[2024-02-11] MEDS: Gabapentin 100 MG Capsule 500 MG PO ×3 (07:36→16:26)
[2024-02-11] MEDS: Pantoprazole Sodium 40 MG Tablet PO (07:36)
[2024-02-11] MEDS: metFORMIN HCl 1,000 MG Tablet 1000 MG PO ×2 (07:36→16:23)
[2024-02-11] MEDS: Celecoxib 200 MG Capsule PO ×2 (07:36→21:14)
[2024-02-11] MEDS: DULoxetine Hcl 60 MG Capsule PO (07:36)
[2024-02-11] MEDS: Lidocaine 5% Patch 3 PATCH TOPICAL (07:37)
[2024-02-11 07:40] VITALS: BP 133/70; PULSE 61; RESP 14; TEMP 36.3; O2SAT 100
[2024-02-11 07:44] LABS: Anion Gap 6 (5-15); BUN 30 mg/dL (7-18); BUN/Creat Ratio 36.1 RATIO (10-20); Calcium,Total 9.1 mg/dL (8.5-10.1); Chloride 107 mmol/L (98-107); Creatinine, Serum 0.83 mg/dL (0.70-1.30); EST Glomerular Filtration Rate 104 mL/min (>60); Est Glom Filt Rate - Afr Amer 125 mL/min (>60); Estimated Creatinine Clearance 86.68 ml/min; Glucose 244 mg/dL (74-106); Potassium 4.4 mmol/L (3.5-5.1); Sodium Level 137 mmol/L (136-145)
[2024-02-11] MEDS: Insulin Glargine-YFGN 100 UNIT/ML Pen 25 UNIT SC (07:50)
[2024-02-11] MEDS: Insulin Lispro 100 UNIT/ML INSULN.PEN SC ×3 (07:51→16:20)
[2024-02-11] MEDS: Insulin Lispro 100 UNIT/ML INSULN.PEN 10 UNIT SC ×3 (07:51→16:22)
[2024-02-11 08:49] LABS: Bedside Glucose 176 mg/dL (74-106)
[2024-02-11] MEDS: ARIPiprazole 5 MG Tablet PO (09:34)
[2024-02-11] MEDS: Glucerna Shake 120 ML LIQUID PO ×4 (09:34→21:14)
[2024-02-11] MEDS: Insulin Glargine-YFGN 100 UNIT/ML Pen 30 UNIT SC ×2 (09:35→21:19)
--- NOTE | 2024-02-11 09:40 | CASEMGMT ---
Social Work- SW called Penny, residential services webbing supervisor and left GEMINI Hong
--- NOTE | 2024-02-11 09:51 | NS ---
Report from charge nurse that pt is unhappy about the food he has been getting. Spoke with pt who reported he has been having multiple food items missing from trays over the past several days. C/o not having cheese in his omelet this morning even though it is listed on his tray ticket. RD asked if there was anything RD could get pt but pt declined any needs at this time. Per Dr. Rosenthal, she change pt to a Regular diet since pt states he will not follow a [facility] diet when he is discharged. Dr. Rosenthal wanted to get patients insulin adjusted. Smiley Lujan RDN, LD
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
[2024-02-11 12:14] LABS: Bedside Glucose 226 mg/dL (74-106)
[2024-02-11 14:30] VITALS: BP 138/87; PULSE 108; RESP 14; TEMP 36.7; O2SAT 94
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
--- NOTE | 2024-02-11 15:08 | CASEMGMT ---
Made aware Pt needs to be I with glucometer and insulin administration in usp by FREDA. TC to pharmacy to determine if able to bill insurance and cost of glucometer and supplies. [facility] Pharm[facility] not able to bill insurance, cost is $35. RN CM discussed option to have [facility] CM obtain from pharmacy of choice or pay $35 and obtain through [facility] pharmacy. Pt chose [facility] pharmacy. TC to pharmacy, will send order via tube. Pharmacy will bring to Pt room. Updated Pt nurse.
[2024-02-11 16:47] LABS: Bedside Glucose 264 mg/dL (74-106)
[2024-02-11 20:00] VITALS: BP 136/66; PULSE 83; RESP 16; TEMP 36.4; O2SAT 100
[2024-02-11] MEDS: MELATONIN 10 MG TABLET PO (21:14)
[2024-02-11] MEDS: MENTHOL 226.8 GM JAR 1 APPLIC TOPICAL (21:15)
[2024-02-11] MEDS: Atorvastatin Calcium 40 MG Tablet PO (21:15)
[2024-02-11 22:34] LABS: Bedside Glucose 138 mg/dL (74-106)
[2024-02-12 04:09] VITALS: BMI 20.9
[2024-02-12 05:05] VITALS: BP 118/59; PULSE 70; RESP 16; TEMP 36.6; O2SAT 98
[2024-02-12] MEDS: Acetaminophen 500 MG Tablet 1000 MG PO ×3 (05:08→20:43)
[2024-02-12] MEDS: tiZANidine HCl 2 MG Tablet 4 MG PO ×3 (05:08→20:44)
[2024-02-12] MEDS: Levothyroxine 100 MCG Tablet PO (05:08)
[2024-02-12] MEDS: Insulin Lispro 100 UNIT/ML INSULN.PEN 10 UNIT SC ×3 (06:33→16:50)
[2024-02-12] MEDS: Insulin Lispro 100 UNIT/ML INSULN.PEN SC ×3 (06:34→16:51)
[2024-02-12] MEDS: MENTHOL 226.8 GM JAR 1 APPLIC TOPICAL (06:36)
[2024-02-12 06:56] LABS: Bedside Glucose 226 mg/dL (74-106)
[2024-02-12] MEDS: Gabapentin 100 MG Capsule 500 MG PO ×3 (07:56→16:55)
[2024-02-12] MEDS: Pantoprazole Sodium 40 MG Tablet PO (07:56)
[2024-02-12] MEDS: DULoxetine Hcl 60 MG Capsule PO (07:57)
[2024-02-12] MEDS: metFORMIN HCl 1,000 MG Tablet 1000 MG PO ×2 (07:57→16:52)
[2024-02-12] MEDS: Lisinopril 20 MG Tablet PO (07:57)
[2024-02-12] MEDS: Insulin Glargine-YFGN 100 UNIT/ML Pen 30 UNIT SC ×2 (07:58→20:43)
[2024-02-12] MEDS: Celecoxib 200 MG Capsule PO ×2 (07:58→20:44)
[2024-02-12] MEDS: Glucerna Shake 120 ML LIQUID PO ×4 (07:58→20:44)
[2024-02-12] MEDS: ARIPiprazole 5 MG Tablet PO (07:58)
[2024-02-12] MEDS: Lidocaine 5% Patch 3 PATCH TOPICAL (07:59)
[2024-02-12 08:00] VITALS: BP 112/67; PULSE 72; RESP 13; TEMP 36.5; O2SAT 98
--- NOTE | 2024-02-12 08:47 | CASEMGMT ---
Social Work- Penny, Residential Services, [facility], called to advise that [facility] will take pt on Thursday. Penny asked that med list and d/c papers be faxed to: [phone] at discharge and that she be advised of transport time Thursday if possible so she can advise staff. GEMINI Hong
--- NOTE | 2024-02-12 10:59 | PCM.PN.HOSP ---
Reason for Visit Reason for Visit: Intractable multifocal pain Subjective Subjective Patient states overall he is doing okay. Still has twinges of pain here and there but much better than when he came him. Feels like the current regimen is good. Plan for discharge is Thursday as the nursing home will have everything ready at that time. Objective Data Objective Data Vital Signs: Vital Signs Temp Pulse Resp BP Pulse Ox O2 Del Method 97.7 F L 72 13 112/67 98 Room Air 02/12/24 08:00 02/12/24 08:00 02/12/24 08:00 02/12/24 08:00 02/12/24 08:00 02/12/24 08:00 Oxygen Delivery Method Room Air Weight: 59.2 kg Body Mass Index (BMI) 20.9 Medical Nutrition Assessment Dietitian: Malnutrition Criteria Met Start: 01/29/24 11:20 Freq: Status: Active Protocol: Document 02/05/24 14:08 DAKSHA (Rec: 02/05/24 14:08 [facility] [id number]) Nutrition Malnutrition Evidence of Malnutrition Exists Yes Malnutrition (moderate): Chronic Evidenced By Weight Loss (Moderate), Physical Changes (Moderate) Clinical Problem Chronic Disease or Condition Related Malnutrition Etiology related to physiological changes impacting oral intakes Signs/Symptoms as evidenced by significant weight loss of 7.5% in 3 months based upon 10/29/23 weight of 133lb and physical evidence of moderate muscle and fat wasting (temples, clavicles, deltoids, buccal, etc). Status Active Problem Recommendation Dietitian Recommendations/Changes Continue with Consistent Carb - Calorie Controlled diet ( 2000kcal) with Glucerna 120mL 4x/day with medpass to help increase oral intakes and prevent further weight loss. Lab / Micro Data 02/09/24 06:13 02/11/24 06:07 Labs: Laboratory Results - last 24 hr 02/11/24 11:44: POC Glucose 226 H 02/11/24 16:19: POC Glucose 264 H 02/11/24 21:18: POC Glucose 138 H 02/12/24 06:30: POC Glucose 226 H Physical Exam Const alert, oriented x3, no apparent distress and average body habitus; Negative for healthy appearing or well nourished Constitutional Narrative: Thin, middle-aged, white male, has been walking around the halls and in his room without assistive device, appears comfortable, nontoxic, very pleasant General Appearance: cooperative, well kempt and well developed Extremity no clubbing, cyanosis or edema Extremity Narrative: Pedal pulses are 2+ Neuro oriented x3, moves all extremities and no focal motor deficits Speech: speech normal Psych affect normal Psych Narrative: Very pleasant, interacts appropriately Assessment & Plan Assessment/Plan (1) Chronic hip pain: (2) Chronic back pain: (3) Adult failure to thrive: PLAN: Plan Multifocal chronic pain -Pain on current regimen remains very well-controlled per patient -Continue Tylenol to scheduled 1 g 3 times daily -Continue Cymbalta at 60 mg daily -Continue gabapentin 500 3 times daily -Continue lidocaine patches -Continue Celebrex 200 mg p.o. twice daily -Continue Protonix for 40 mg daily for GI protection with longer term NSAID use -Outpatient orthopedic follow-up after discharge-->Dr. Santiago -Appointment was set up for him today for next week -Will also refer to Dr. Lowery for pain mgt -Appointment was set up for him today for next week -Continue PT/OT Chronic moderate malnutrition -Dietitian is following -Evidenced by significant weight loss of 7.5% in the last 3 months with previous weight of 133 pounds -[place] diet was initiated because patient eats regular diet at home -Glucerna supplements 4 times daily -Continue to monitor Hypothyroidism -Continue home Synthroid History of hypertension/hyperlipidemia -Continue lisinopril 20 mg -Overall good blood pressure control while hospitalized on this dose -Continue atorvastatin 40 mg -Will need follow-up lipids and liver function in 3 months History of GERD -Continue PPI with scheduled NSAID utilization -As needed Mylanta is available DM-2 -Continue metformin twice daily -Patient on liberalize diet as he will be as an outpatient -Fasting sugars remain elevated -Continue Lantus to 30 units twice daily -Continue scheduled insulin 10 units 3 times daily -Continue SSI -A1c was 7.7--> patient states his p.o. intake was extremely poor at home but he does not follow a specialized diet at home for diabetes -Will make referral to endocrinology at discharge Depression/schizophrenia/bipolar -Continue increased dose of Cymbalta at 60 mg daily DVT prophylaxis -Continue Lovenox CODE STATUS Full code Disposition: -Patient has been medically ready for discharge since 02/01/2024 plan has now changed to probable discharge to nursing home as he is physically doing much better and now appropriate for the setting. Awaiting approval to go to the nursing home. Plan is for discharge on 02/16/2024 to the nursing home. Charges/Coding Visit Charges Inpatient E&M: 73058 Subs Hosp L1
--- NOTE | 2024-02-12 13:09 | NURSING ---
pt has demonstrated ability/knowledge to check his blood sugar w/his glucometer as well as figure out insulin due w/ss scale and administer
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
[2024-02-12 14:00] VITALS: BP 145/75; PULSE 85; RESP 15; TEMP 36.8; O2SAT 99
[2024-02-12 17:21] LABS: Bedside Glucose 291 mg/dL (74-106)
[2024-02-12 20:28] VITALS: BP 141/74; PULSE 88; RESP 16; TEMP 36.8; O2SAT 99
[2024-02-12] MEDS: MELATONIN 10 MG TABLET PO (20:44)
[2024-02-12] MEDS: Atorvastatin Calcium 40 MG Tablet PO (20:44)
[2024-02-13 03:32] VITALS: BP 113/67; PULSE 70; RESP 16; TEMP 36.6; O2SAT 99
[2024-02-13 04:28] VITALS: BMI 20.9
--- NOTE | 2024-02-13 06:22 | NURSING ---
Pt refused AM medications stating I don't want anything. I'm upset. I usually eat an hour and a half after I wake up and nobody would take me down to get something to eat. You guys don't stock cereal or nothing up here. I just want to go home. Pt informed medications would be charted against d/t refusal and that staff cannot always be available to take him down to vending machines to get food when he wants.
--- NOTE | 2024-02-13 08:32 | NURSING ---
Upon entering pt's room, this nurse was informed that he didn't want anything and to leave his room.
[2024-02-13 09:32] VITALS: BP 157/81; PULSE 74; RESP 16; TEMP 36.8; O2SAT 100
[2024-02-13] MEDS: metFORMIN HCl 1,000 MG Tablet 1000 MG PO ×2 (09:40→16:59)
[2024-02-13] MEDS: Levothyroxine 100 MCG Tablet PO (09:40)
[2024-02-13] MEDS: Celecoxib 200 MG Capsule PO ×2 (09:41→21:09)
[2024-02-13] MEDS: ARIPiprazole 5 MG Tablet PO (09:41)
[2024-02-13] MEDS: DULoxetine Hcl 60 MG Capsule PO (09:41)
[2024-02-13] MEDS: Insulin Glargine-YFGN 100 UNIT/ML Pen 30 UNIT SC ×2 (09:42→21:13)
[2024-02-13] MEDS: Pantoprazole Sodium 40 MG Tablet PO (09:44)
[2024-02-13] MEDS: Lisinopril 20 MG Tablet PO (09:45)
[2024-02-13] MEDS: Glucerna Shake 120 ML LIQUID PO ×4 (09:50→21:09)
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
[2024-02-13] MEDS: Gabapentin 100 MG Capsule 500 MG PO ×2 (11:28→16:59)
[2024-02-13] MEDS: Insulin Lispro 100 UNIT/ML INSULN.PEN 10 UNIT SC ×2 (11:28→16:57)
[2024-02-13] MEDS: Insulin Lispro 100 UNIT/ML INSULN.PEN SC ×3 (11:29→21:12)
[2024-02-13 12:53] VITALS: BP 162/86; PULSE 120; RESP 16; TEMP 36.6; O2SAT 98
--- NOTE | 2024-02-13 13:24 | NURSING ---
Pt had c/o shakiness, heart palpitations and dizziness. VSS with pulse a little high. Inquired about food intake and 6 cups of coffee was the reply. Blood glucose was 94. Pt was advised to slow down on the coffe and to eat. Reyna Doones and a regular coke were given. Pt now states that he feels much better.
[2024-02-13] MEDS: Acetaminophen 500 MG Tablet 1000 MG PO ×2 (14:14→21:08)
[2024-02-13 21:05] VITALS: BP 131/74; PULSE 80; RESP 18; TEMP 36.4; O2SAT 100
--- NOTE | 2024-02-13 21:07 | NURSING ---
Addendum entered by Maria D Merchant 02/14/24 03:13: blood sugar was 235. Original Note: pt checked his own blood sugar with a device that provided to patient since he has been at the hospital. this rn was in the room when pt checked his blood sugar.
[2024-02-13] MEDS: MELATONIN 10 MG TABLET PO (21:09)
[2024-02-13] MEDS: Atorvastatin Calcium 40 MG Tablet PO (21:10)
[2024-02-14 02:45] VITALS: BP 133/68; PULSE 78; RESP 16; TEMP 36.6; O2SAT 99
[2024-02-14 04:20] VITALS: BMI 20.9
[2024-02-14] MEDS: Acetaminophen 500 MG Tablet 1000 MG PO ×3 (05:15→21:53)
[2024-02-14] MEDS: Levothyroxine 100 MCG Tablet PO (05:16)
[2024-02-14 07:55] VITALS: BP 123/77; PULSE 76; RESP 16; TEMP 36.4; O2SAT 99
[2024-02-14] MEDS: Insulin Lispro 100 UNIT/ML INSULN.PEN SC ×4 (08:36→21:52)
[2024-02-14] MEDS: Insulin Lispro 100 UNIT/ML INSULN.PEN 10 UNIT SC ×3 (08:36→16:48)
[2024-02-14] MEDS: metFORMIN HCl 1,000 MG Tablet 1000 MG PO ×2 (08:37→16:50)
[2024-02-14] MEDS: Gabapentin 100 MG Capsule 500 MG PO ×3 (08:39→16:51)
[2024-02-14] MEDS: ARIPiprazole 5 MG Tablet PO (10:30)
[2024-02-14] MEDS: DULoxetine Hcl 60 MG Capsule PO (10:31)
[2024-02-14] MEDS: Celecoxib 200 MG Capsule PO ×2 (10:31→21:51)
[2024-02-14] MEDS: Lisinopril 20 MG Tablet PO (10:34)
[2024-02-14] MEDS: Pantoprazole Sodium 40 MG Tablet PO (10:34)
[2024-02-14] MEDS: Insulin Glargine-YFGN 100 UNIT/ML Pen 30 UNIT SC ×2 (10:35→21:52)
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
[2024-02-14 14:17] VITALS: BP 158/86; PULSE 122; RESP 16; TEMP 36.7; O2SAT 98
[2024-02-14] MEDS: Glucerna Shake 120 ML LIQUID PO ×3 (14:23→21:53)
[2024-02-14 21:43] VITALS: BP 138/63; PULSE 76; RESP 16; TEMP 36.6; O2SAT 97
[2024-02-14] MEDS: MELATONIN 10 MG TABLET PO (21:53)
[2024-02-14] MEDS: Atorvastatin Calcium 40 MG Tablet PO (21:53)
[2024-02-15 01:05] VITALS: BMI 20.8
[2024-02-15 03:15] VITALS: BP 132/63; PULSE 76; RESP 18; TEMP 36.8; O2SAT 99
[2024-02-15] MEDS: Levothyroxine 100 MCG Tablet PO (06:00)
[2024-02-15] MEDS: Acetaminophen 500 MG Tablet 1000 MG PO ×3 (06:00→22:20)
[2024-02-15] MEDS: Glucerna Shake 120 ML LIQUID PO ×2 (06:00→22:19)
--- NOTE | 2024-02-15 07:25 | PCM.PN.HOSP ---
Reason for Visit Reason for Visit: Diagnoses Other chronic pain (01/28/24) Essential (primary) hypertension (01/28/24) Pain in unspecified hip (01/28/24) Dorsalgia, unspecified (01/28/24) Adult failure to thrive (01/28/24) Subjective Subjective I walked into the room, patient was on the phone, he indicated no initiative to get off the phone and I left. Objective Data Objective Data Vital Signs: Vital Signs Temp Pulse Resp BP Pulse Ox O2 Del Method 36.8 C 76 18 132/63 H 99 Room Air 02/15/24 03:15 02/15/24 03:15 02/15/24 03:15 02/15/24 03:15 02/15/24 03:15 02/15/24 03:15 Oxygen Delivery Method Room Air Weight: 58.9 kg Body Mass Index (BMI) 20.8 Medical Nutrition Assessment Dietitian: Malnutrition Criteria Met Start: 01/29/24 11:20 Freq: Status: Active Protocol: Document 02/05/24 14:08 DAKSHA (Rec: 02/05/24 14:08 [facility] 1606-2-10) Nutrition Malnutrition Evidence of Malnutrition Exists Yes Malnutrition (moderate): Chronic Evidenced By Weight Loss (Moderate), Physical Changes (Moderate) Clinical Problem Chronic Disease or Condition Related Malnutrition Etiology related to physiological changes impacting oral intakes Signs/Symptoms as evidenced by significant weight loss of 7.5% in 3 months based upon 10/29/23 weight of 133lb and physical evidence of moderate muscle and fat wasting (temples, clavicles, deltoids, buccal, etc). Status Active Problem Recommendation Dietitian Recommendations/Changes Continue with Consistent Carb - Calorie Controlled diet ( 2000kcal) with Glucerna 120mL 4x/day with medpass to help increase oral intakes and prevent further weight loss. Lab / Micro Data 02/09/24 06:13 02/11/24 06:07 Physical Exam Const alert and no apparent distress Constitutional Narrative: Disregarded my interaction when I walked into the room. Assessment & Plan Assessment/Plan (1) Chronic hip pain: (2) Chronic back pain: (3) Adult failure to thrive: PLAN: Plan Multifocal chronic pain over left shoulder, scapular region and left hip pain pelvic. Pain on current regimen remains very well-controlled per patient: -Continue Tylenol to scheduled 1 g 3 times daily -Continue Cymbalta at 60 mg daily -Continue gabapentin 500 3 times daily -Continue lidocaine patches -Continue Celebrex 200 mg p.o. twice daily -Continue Protonix for 40 mg daily for GI protection with longer term NSAID use orthopedic follow-up after discharge with Dr. Santiago next week. Follow w pain mgmt with Dr. Lowery next week. Continue PT/OT Chronic moderate malnutrition BMI 21 Dietitian is following: Evidenced by significant weight loss of 7.5% in the last 3 months with previous weight of 133 pounds. [place] diet was initiated because patient eats regular diet at home. Glucerna supplements 4 times daily DM2 a1c 7.7 on metformin. glargine 30 units BID. follow up with endocrinology as outpt. Chronic conditions: Hypothyroidism-Continue home Synthroid History of hypertension/hyperlipidemia-Continue lisinopril 20 mg. Continue atorvastatin 40 GERD-Continue PPI DM-2 Continue metformin twice daily Depression/schizophrenia/bipolar-Continue increased dose of Cymbalta at 60 mg daily DVT prophylaxis -Continue Lovenox CODE STATUS Full code Disposition: -Patient has been medically ready for discharge since 02/11/2024 plan has now changed to probable discharge to retirement as he is physically doing much better and now appropriate for the setting. Awaiting approval to go to the retirement. Plan is for discharge on 02/16/2024 to the retirement. Charges/Coding Visit Charges Inpatient E&M: 80918 [facility] Hosp L1
[2024-02-15 08:24] VITALS: BP 123/70; PULSE 72; RESP 18; TEMP 36.6; O2SAT 99
[2024-02-15] MEDS: Insulin Lispro 100 UNIT/ML INSULN.PEN SC ×4 (08:28→22:19)
[2024-02-15] MEDS: Insulin Lispro 100 UNIT/ML INSULN.PEN 10 UNIT SC ×3 (08:29→16:53)
[2024-02-15] MEDS: Celecoxib 200 MG Capsule PO ×2 (08:30→22:19)
[2024-02-15] MEDS: metFORMIN HCl 1,000 MG Tablet 1000 MG PO ×2 (08:30→16:54)
[2024-02-15] MEDS: Insulin Glargine-YFGN 100 UNIT/ML Pen 30 UNIT SC ×2 (08:31→22:19)
[2024-02-15] MEDS: DULoxetine Hcl 60 MG Capsule PO (08:31)
[2024-02-15] MEDS: Pantoprazole Sodium 40 MG Tablet PO (08:34)
[2024-02-15] MEDS: Lisinopril 20 MG Tablet PO (08:34)
[2024-02-15] MEDS: ARIPiprazole 5 MG Tablet PO (08:35)
[2024-02-15] MEDS: Gabapentin 100 MG Capsule 500 MG PO ×3 (08:41→16:58)
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
--- NOTE | 2024-02-15 11:48 | CASEMGMT ---
Social Work- Pt will be transported at 9am by the [facility] from the main entrance to the long-term by [facility] GEMINI Musa
[2024-02-15] MEDS: tiZANidine HCl 2 MG Tablet 4 MG PO ×2 (15:14→22:20)
[2024-02-15 15:56] VITALS: BP 136/73; PULSE 86; RESP 16; TEMP 36.3; O2SAT 97
[2024-02-15 22:11] VITALS: BP 122/65; PULSE 80; RESP 16; TEMP 36.6; O2SAT 99
[2024-02-15] MEDS: MELATONIN 10 MG TABLET PO (22:20)
[2024-02-15] MEDS: Atorvastatin Calcium 40 MG Tablet PO (22:20)
[2024-02-16 02:58] VITALS: BP 113/60; PULSE 65; RESP 16; TEMP 36.6; O2SAT 98
[2024-02-16] MEDS: tiZANidine HCl 2 MG Tablet 4 MG PO (05:01)
[2024-02-16] MEDS: Acetaminophen 500 MG Tablet 1000 MG PO (05:01)
[2024-02-16] MEDS: Levothyroxine 100 MCG Tablet PO (05:01)
[2024-02-16 06:00] VITALS: BMI 21.3
[2024-02-16 07:47] VITALS: BP 117/69; PULSE 68; RESP 18; TEMP 36.7; O2SAT 99
[2024-02-16] MEDS: Glucerna Shake 120 ML LIQUID PO (07:50)
[2024-02-16] MEDS: Insulin Lispro 100 UNIT/ML INSULN.PEN 10 UNIT SC (07:51)
[2024-02-16] MEDS: Insulin Lispro 100 UNIT/ML INSULN.PEN SC (07:51)
[2024-02-16] MEDS: Lisinopril 20 MG Tablet PO (07:52)
[2024-02-16] MEDS: DULoxetine Hcl 60 MG Capsule PO (07:52)
[2024-02-16] MEDS: Pantoprazole Sodium 40 MG Tablet PO (07:52)
[2024-02-16] MEDS: metFORMIN HCl 1,000 MG Tablet 1000 MG PO (07:52)
[2024-02-16] MEDS: Celecoxib 200 MG Capsule PO (07:53)
[2024-02-16] MEDS: Insulin Glargine-YFGN 100 UNIT/ML Pen 30 UNIT SC (08:00)
[2024-02-16] MEDS: Gabapentin 100 MG Capsule 500 MG PO (08:00)
--- NOTE | 2024-02-16 08:43 | CASEMGMT ---
Social Work Confirmed with Elva at [facility] transportation, transport time moved to 0930 today. Updated RN LUCAS Alvarado, who is in conversation with sports marketing coordinator. Message sent to provider via Backline with with time. Plan: Detention ran by [facility]. [facility] to follow in the community. -MERCEDES Villela
--- NOTE | 2024-02-16 09:03 | DS.PCM_ITS ---
Providers Date of Admission: 01/28/24 Primary Care Physician: Dr. Cordell Bojorquez MD Reason For Visit: INTRACTABLE PAIN, ADULT FTT Diagnosis Discharge Diagnosis (1) Chronic hip pain: Status: Chronic Code(s): M25.559 - Pain in unspecified hip; G89.29 - Other chronic pain (2) Chronic back pain: Status: Chronic Code(s): M54.9 - Dorsalgia, unspecified; G89.29 - Other chronic pain (3) Adult failure to thrive: Status: Acute Code(s): R62.7 - Adult failure to thrive Plan Multifocal chronic pain over left shoulder, scapular region and left hip pain pelvic. * Pain on current regimen remains very well-controlled per patient: -Continue Tylenol to scheduled 1 g 3 times daily -Continue Cymbalta at 60 mg daily -Continue gabapentin 500 3 times daily -Continue lidocaine patches -Continue Celebrex 200 mg p.o. twice daily -Continue Protonix for 40 mg daily for GI protection with longer term NSAID use * orthopedic follow-up after discharge with Dr. Santiago next week. * Follow w pain mgmt with Dr. Lowery next week. * Continue PT/OT Chronic moderate malnutrition * BMI 21 * Dietitian is following: Evidenced by significant weight loss of 7.5% in the last 3 months with previous weight of 133 pounds. Hubert diet was initiated because patient eats regular diet at home. Glucerna supplements 4 times daily DM2 * a1c 7.7 * on metformin. glargine 30 units BID. * follow up with endocrinology as outpt. Chronic conditions: * Hypothyroidism-Continue home Synthroid * History of hypertension/hyperlipidemia-Continue lisinopril 20 mg. Continue atorvastatin 40 * GERD-Continue PPI * DM-2 Continue metformin twice daily * Depression/schizophrenia/bipolar-Continue increased dose of Cymbalta at 60 mg daily DVT prophylaxis -Continue Lovenox CODE STATUS Full code Disposition: -Patient has been medically ready for discharge since 02/11/2024 plan has now changed to probable discharge to jail as he is physically doing much better and now appropriate for the setting. Awaiting approval to go to the jail. Plan is for discharge on 02/16/2024 to the jail. Medications at Discharge Home Medications acetaminophen 500 mg capsule 1,000 mg PO Q6H PRN pain 01/28/24 ibuprofen 600 mg tablet 600 mg PO TID 01/28/24 Remove Patch 1 patch topical DAILY@2200 ##0 02/15/24 aripiprazole 5 mg tablet 5 mg PO .daliy #30 tabs 02/15/24 duloxetine 40 mg capsule,delayed release 40 mg PO DAILY #30 caps 02/15/24 gabapentin 100 mg capsule 500 mg (5 x 100 mg) PO TIDCM #90 caps 02/15/24 insulin glargine-yfgn 100 unit/mL (3 mL) subcutaneous pen 30 unit (0.3 mL) subcut BID #15 mL 02/15/24 insulin lispro 100 unit/mL subcutaneous pen (Humalog KwikPen (U-100) Insulin) 10 unit (0.1 mL) subcut TIDAC #15 mL 02/15/24 levothyroxine 100 mcg tablet 100 mcg PO DAILY #30 tabs 02/15/24 lisinopril 20 mg tablet 20 mg PO DAILY #30 tabs 02/15/24 metformin 1,000 mg tablet 1,000 mg PO BIDCM #60 tabs 02/15/24 pantoprazole 40 mg tablet,delayed release 40 mg PO DAILY #30 tabs 02/15/24 pen needle, diabetic, safety 29 gauge x 3/16 #1 ea 02/15/24 tizanidine 4 mg tablet 4 mg PO Q8 PRN muscle spasm #30 tabs 02/15/24 Physical Exam Const alert and no apparent distress Constitutional Narrative: up in chair. suitcase next to his chair. he is eating breakfast. Medical Records Data Medical Nutrition Assessment Dietitian: Malnutrition Criteria Met Start: 01/29/24 11:20 Freq: Status: Active Protocol: Document 02/05/24 14:08 DAKSHA (Rec: 02/05/24 14:08 DAKSHA [id number]) Nutrition Malnutrition Evidence of Malnutrition Exists Yes Malnutrition (moderate): Chronic Evidenced By Weight Loss (Moderate), Physical Changes (Moderate) Clinical Problem Chronic Disease or Condition Related Malnutrition Etiology related to physiological changes impacting oral intakes Signs/Symptoms as evidenced by significant weight loss of 7.5% in 3 months based upon 10/29/23 weight of 133lb and physical evidence of moderate muscle and fat wasting (temples, clavicles, deltoids, buccal, etc). Status Active Problem Recommendation Dietitian Recommendations/Changes Continue with Consistent Carb - Calorie Controlled diet ( 1999kcal) with Glucerna 120mL 4x/day with medpass to help increase oral intakes and prevent further weight loss. Weight / BMI Weight Weight: 60.3 kg Body Mass Index (BMI) 21.3 ABG / Lab / Microbiology Data 02/09/24 06:13 02/11/24 06:07 D/C Instructions Discharge Diet: 2000 Calorie Control Diet Meaningful Use Info Meaningful Use Meaningful Use Diagnoses (Choose all that apply): None applicable Ischemic Stroke Statin Dosing Therapy Reference: STATIN DOSE THERAPY REFERENCE: * Patients > 75 years receive moderate or high dose statin therapy. * Patients 75 years or YOUNGER should receive HIGH intensity statin dose unless contraindicated. You will be required to document reason for non-treatment if statin daily dose does not meet guidelines. HIGH DOSE STATIN THERAPY DAILY Atorvastatin > than or = to 40 mg Rosuvastatin > than or = to 20 mg Amlodipine + Atorvastatin > than or = to 2.5/40 mg Ezetimibe + Simvastatin 10/80 mg Simvastatin 80mg Discharge Plan Admission Admit Date/Time: 01/28/24 13:59 Primary Reason for Your Visit: Intractable Pain Attending Provider: Mayur Garcia Primary Care Provider: Cordell Bojorquez Consulting Providers: Michaela Alejandro; Cordell Lyn; Karley Rosenthal; Alfredo Ramírez Discharge Orders/Prescriptions Prescriptions: New insulin glargine-yfgn 100 unit/mL (3 mL) Insulin Pen 30 unit subcut BID Qty: 15 0RF insulin lispro [Humalog KwikPen Insulin] 100 unit/mL Insulin Pen 10 unit subcut TIDAC Qty: 15 0RF lisinopril 20 mg Tablet 20 mg PO DAILY Qty: 30 0RF pantoprazole 40 mg Tablet,Delayed Release (Dr/Ec) 40 mg PO DAILY Qty: 30 0RF metformin 1,000 mg Tablet 1,000 mg PO BIDCM Qty: 60 0RF gabapentin 100 mg Capsule 500 mg PO TIDCM Qty: 90 0RF Remove Patch 1 patch topical DAILY@0 Qty: 0 0RF (DME) pen needle, diabetic, safety 29 gauge x 3/16 needle See Rx Instructions .Route Qty: 1 0RF Rx Instructions: As directed Continued acetaminophen 500 mg capsule 1,000 mg PO Q6H PRN (Reason: pain) ibuprofen 600 mg tablet 600 mg PO TID tizanidine 4 mg tablet 4 mg PO Q8 PRN (Reason: muscle spasm) Qty: 30 0RF levothyroxine 100 mcg tablet 100 mcg PO DAILY Qty: 30 0RF aripiprazole 5 mg tablet 5 mg PO .daliy Qty: 30 0RF duloxetine 40 mg capsule,delayed release(DR/EC) 40 mg PO DAILY Qty: 30 0RF Discontinued tizanidine 4 mg tablet 4 mg PO Q8 PRN (Reason: muscle spasm) duloxetine 40 mg capsule,delayed release(DR/EC) 40 mg PO DAILY levothyroxine 100 mcg tablet 100 mcg PO DAILY metformin 500 mg tablet extended release 24 hr 500 mg PO DAILY cyclobenzaprine 10 mg tablet 10 mg PO TID PRN (Reason: muscle spasm) Other Ambulatory Orders: Glucometer (Routine) Timeframe: 1 Day Location: Determined by Patient Ordered By: Dr. Mayur Garcia Referrals / Follow Up: Marcos Lowery MD [Med Staff - Active Staff] - 02/17/24 12:00 pm Jean Claude Santiago MD [Med Staff - Active Staff] - 02/17/24 3:00 pm Cordell Bojorquez MD [Primary Care Provider] - Within 2 Weeks Colton Main MD [Med Staff - Courtesy Staff] - Within 1 Month Disposition Disposition (needs filled in before D/C Order can be placed): Assisted Living Charges/Coding Visit Charges Inpatient E&M: 00526 [facility]
[2024-02-16] MEDS: ARIPiprazole 5 MG Tablet PO (09:21)
--- NOTE | 2024-02-16 09:56 | CASEMGMT ---
Social Work SW did fax discharge instructions and med list to [facility]. NORBERT Holguin
== END 2024-02-16 09:35 | disposition home or self-care (01) ==
LOC: ED 14:02 → MS3 14:18
PROVIDERS: Internal Medicine; Admitting Provider Family Medicine; Emergency Provider Emergency Medicine; PCP Family Medicine
DX: G89.29 Other chronic pain (principal); F20.9 Schizophrenia, unspecified; F31.9 Bipolar disorder, unspecified; E11.40 Type 2 diabetes mellitus with diabetic neuropathy, unspecified; R62.7 Adult failure to thrive; M25.512 Pain in left shoulder; M50.30 Other cervical disc degeneration, unspecified cervical region; E78.5 Hyperlipidemia, unspecified; F17.210 Nicotine dependence, cigarettes, uncomplicated; R53.81 Other malaise; I10 Essential (primary) hypertension; F41.9 Anxiety disorder, unspecified; E44.0 Moderate protein-calorie malnutrition; M25.552 Pain in left hip; Z68.21 Body mass index [BMI] 21.0-21.9, adult; Z79.84 Long term (current) use of oral hypoglycemic drugs; Z79.890 Hormone replacement therapy; E03.9 Hypothyroidism, unspecified; F17.290 Nicotine dependence, other tobacco product, uncomplicated; K21.9 Gastro-esophageal reflux disease without esophagitis
CPT/HCPCS: 36415; 72050; 72072; 72110; 72141; 73030; 73502; 80048; 80053; 80307; 80320; 81001; 82962; 83036; 83735; 85025; 85027; 85652; 86140; 86703; 86706; 86780; 86803; 87340; 94668; 96361; 96374; 96375; 96376; 97110; 97116; 97162; 97166; 97530; 97535; 97802; 97803; 99221; 99284; J7030; A4216; G0378; G0480; J2405